=== PATIENT | female | born 2000 | race Caucasian/White ===

== ENCOUNTER → 2023-06-01 | Outpatient (CLI) | payer OTHER, SELFPAY | END | disposition home or self-care (01) | PROVIDERS: Referring Provider Nurse Practitioner Women's Health; Visit Provider Nurse Practitioner Women's Health | DX: O26.859 Spotting complicating pregnancy, unspecified trimester (principal); Z3A.00 Weeks of gestation of pregnancy not specified | CPT/HCPCS: 36415; 84702; 86850; 86900; 86901 ==

== ENCOUNTER → 2023-06-03 | Outpatient (CLI) | payer OTHER, SELFPAY ==
--- NOTE | 2023-06-03 18:30 | US_ITS ---
STUDY: FIRST TRIMESTER OBSTETRICAL ULTRASOUND REASON FOR EXAM: Female, 22 years old viability LMP: 04/09/2023 TECHNIQUE: Transvaginal TECHNICAL QUALITY: Adequate. PRIOR ULTRASOUND: None. FINDINGS: There is visualization of a single gestational sac in a normal intrauterine position. The mean sac diameter (MSD) measures 28 mm, indicating an estimated gestational age (EGA) of 7 weeks, 6 days. The gestational sac shape is within normal limits. There is a visualized yolk sac. The yolk sac measures 3 mm. The placenta is non-visualized. There is visualization of a live embryo. The crown-rump length (CRL) measures 13 mm, indicating an estimated gestational age (EGA) of 7 weeks, 4 days. There is demonstrated cardiac activity with a heart rate of 157 bpm. The estimated gestation age (EGA) by LMP is 7 weeks, 6 days. The estimated date of delivery (CLARITA) by LMP is 01/14/2024. The estimated gestation age (EGA) by US is 7 weeks, 5 days. The estimated date of delivery (CLARITA) by US is 01/15/2024. The uterus measures 10.6 x 5.1 x 8.3 cm. There is no demonstrated uterine fibroid. The cervix is closed. The right ovary measures 3.2 x 1.7 x 1.7 cm. There is no right ovarian cyst. There is no visualized right adnexal mass or complex lesion. The left ovary measures 5.0 x 2.7 x 3.2 cm. There is a 4 cm oval anechoic mass with increased transmission of the left ovary consistent with a thecal lutein cyst. There is no visualized left adnexal mass or complex lesion. There is no fluid in the cul de sac. US/Transvaginal w/Preg US IMPRESSION: Living intrauterine of 7 weeks 5 days as described above. Electronically Signed: Bob De León MD at 23:28 EDT ,
== END | disposition home or self-care (01) ==
PROVIDERS: Referring Provider Nurse Practitioner Women's Health; Visit Provider Nurse Practitioner Women's Health
DX: O26.859 Spotting complicating pregnancy, unspecified trimester (principal); Z3A.00 Weeks of gestation of pregnancy not specified
CPT/HCPCS: 36415; 76817; 84702

== ENCOUNTER → 2023-06-10 | Outpatient (CLI) | payer OTHER, SELFPAY ==
[2023-06-14 08:11] LABS: Chlamydia By Nucleic Acid AMP Negative (Negative); Gonococcus By Nucleic Acid AMP Negative (Negative)
== END | disposition home or self-care (01) ==
PROVIDERS: Visit Provider Registered Nurse
DX: Z34.90 Encounter for supervision of normal pregnancy, unspecified, unspecified trimester (principal); Z3A.00 Weeks of gestation of pregnancy not specified
CPT/HCPCS: 87086; 87491; 87591

== ENCOUNTER → 2023-06-20 | Outpatient (CLI) | payer OTHER, SELFPAY ==
[2023-06-20 09:53] LABS: Absolute Lymphocyte Count 1.11 X10^3/uL (0.83-4.51); Absolute Neutrophil Count 5.5 X10^3/uL (2.0-7.7); Basophil# 0.04 X10^3/uL; Basophil% 0.6 % (0-1); Eosinophil# 0.02 X10^3/uL; Eosinophils% 0.3 % (0-5); Hemoglobin 13.5 g/dL (12.0-15.0); Lymphocyte # 1.11 X10^3/ul (0.83-4.51); Lymphocyte % 15.9 % (19-41); Mean Corp Hgb Conc 33.8 g/dL (32-36); Mean Corpuscular Hgb 31.2 pg (27.0-32.0); Mean Corpuscular Volume 92.4 fL (81-99); Mean Platelet Vol. 10.8 fl (6.2-12.0); Monocyte# 0.31 X10^3/uL; Monocyte% 4.4 % (0-10); NRBC Flagged by Analyzer 0 % (0-5); Neutrophil # 5.48 X10^3/uL (2.7-7.7); Neutrophil % 78.4 % (47-70); Platelet Count 205 K/mm3 (150-450); RBC Distribution Width SD 43.9 fl (35.1-43.9); Red Blood Count 4.33 M/mm3 (4.2-5.4)
[2023-06-20 10:56] LABS: HIV - WCH Non-Reactive (Nonreactive); Hepatitis B Surface Antigen Non-Reactive (Nonreactive); Hepatitis C Antibody Non-Reactive (Nonreactive); NATERA MAILED SPECIMEN; Rubella IgG Reactive (Nonreactive); Syphilis Antibodies Non-reactive
== END | disposition home or self-care (01) ==
LOC: PAVLAB 09:32
PROVIDERS: PCP Physician Assistant Medical; Referring Provider Registered Nurse; Visit Provider Registered Nurse
DX: Z34.90 Encounter for supervision of normal pregnancy, unspecified, unspecified trimester (principal); Z3A.00 Weeks of gestation of pregnancy not specified
CPT/HCPCS: 36415; 85025; 86703; 86762; 86780; 86803; 86850; 86900; 86901; 87340

== ENCOUNTER → 2023-08-01 | Outpatient (CLI) | payer OTHER, SELFPAY | END | disposition home or self-care (01) | PROVIDERS: PCP Physician Assistant Medical; Referring Provider Registered Nurse; Visit Provider Registered Nurse | DX: Z34.90 Encounter for supervision of normal pregnancy, unspecified, unspecified trimester (principal); Z3A.00 Weeks of gestation of pregnancy not specified | CPT/HCPCS: 36415 ==

== ENCOUNTER → 2023-10-17 | Outpatient (CLI) | payer OTHER, SELFPAY ==
[2023-10-17 15:29] LABS: Absolute Lymphocyte Count 1.36 X10^3/uL (0.83-4.51); Absolute Neutrophil Count 7.4 X10^3/uL (2.0-7.7); Basophil# 0.02 X10^3/uL; Basophil% 0.2 % (0-1); Eosinophil# 0.04 X10^3/uL; Eosinophils% 0.4 % (0-5); Hematocrit 32.8 % (37-47); Hemoglobin 11.3 g/dL (12.0-15.0); Lymphocyte # 1.36 X10^3/ul (0.83-4.51); Lymphocyte % 14.5 % (19-41); Mean Corp Hgb Conc 34.5 g/dL (32-36); Mean Corpuscular Hgb 32.6 pg (27.0-32.0); Mean Corpuscular Volume 94.5 fL (81-99); Mean Platelet Vol. 10.9 fl (6.2-12.0); Monocyte# 0.49 X10^3/uL; Monocyte% 5.2 % (0-10); NRBC Flagged by Analyzer 0 % (0-5); Neutrophil # 7.42 X10^3/uL (2.7-7.7); Neutrophil % 79.1 % (47-70); Platelet Count 181 K/mm3 (150-450); RBC Distribution Width CV 14.6 % (11.6-14.6); RBC Distribution Width SD 50.1 fl (35.1-43.9); Red Blood Count 3.47 M/mm3 (4.2-5.4); White Blood Count 9.4 K/mm3 (4.4-11.0)
[2023-10-17 16:08] LABS: Glucose Challenge Gest 1H 50g 85 mg/dL (70-140)
[2023-10-17 17:03] LABS: HIV - WCH Non-Reactive (Nonreactive); Syphilis Antibodies Non-reactive
--- OUTSIDE RECORDS SUMMARY | 2023-10-17 19:22 | XMS RPT_ITS | CCD ---
Author Name Unknown Address [id number] [place] [address] Organization [facility] Care Team Providers Care Brake Adjuster Name Role Phone DASHAWN FRANCO Attending GEREMIAS Bassett Primary Care Unavailable Yennifer Tracy Unavailable Unavailable Unavailable Ms. YENNIFER PEMBERTON Referring Unavailab Blandon, MsGlen LIU Attending Vikash Blandon, MsGlen LIU Primary Care Unavailab YENNIFER Lang Primary Care Unavailable YENNIFER TRACY Referring Unavailable YENNIFER TRACY Attending Unavailable SHENG MAURICIO Primary Care Unavailable RODOLFO CALDWELL Referring Unavailable MAT CUADRA Attending Unavailable Medications Completed/Discontinued Medications Medication Drug Class(es) Dates Sig (Normalized) Sig (Original) busPIRone hydrochloride 5 mg oral tablet (2 sources) Start: 09-17-2022 take 1 tablet by mouth three times daily as needed for anxiety busPIRone HCl - 5 MG Oral Tablet TAKE 1 TABLET 3 times daily PRN anxiety Quantity: 90 Refills: 0 Ordered: 17-Sep-2022 Yennifer Chavira Start : 17-Sep-2022 Active PARoxetine hydrochloride 10 mg oral tablet (2 sources) Serotonin Reuptake Inhibitor Start: 09-17-2022 take 1 tablet by mouth once daily PARoxetine HCl - 10 MG Oral Tablet TAKE 1 TABLET DAILY. Quantity: 90 Refills: 0 Ordered: 17-Sep-2022 Yennifer Chavira Start : 17-Sep-2022 Active Problems Problem Classification Problem Date Documented Da te Episodic/Chronic Administrative/social admission (2 sources) Patient encounter status; Translations: [Other reasons for seeking consultation] Episodic Anxiety disorders (4 sources) Anxiety; Translations: [Anxiety state, unspecified] Onset: 09-25-2022 Chronic Nutritional deficiencies (2 sources) Deficiency of other specified B group vitamins; Translations: [Deficiency of other specified B group vitamins] Onset: 10-27-2022 Episodic Screening and history of mental health and substance abuse codes (2 sources) H/O: psychiatric disorder; Translations: [Personal history of neurosis] Episodic Results Test Name Value Interpretation Reference Range Facil ity Vital Signs Date Time Vital Sign Value Performing Clinician Faci lity 09-17-2022 10:32-0500 Body height 157.48 cm Yennifer Tracy Work Phone: [facility] Work Phone: 09-17-2022 10:32-0500 Body mass index (BMI) [Ratio] 21.58 kg/m2 Yennifer Tracy Work Phone: [facility] Work Phone: 09-17-2022 10:32-0500 Body surface area Derived from formula 1.53 m2 Yennifer Tracy Work Phone: [facility] Work Phone: 09-17-2022 10:32-0500 Body weight 53.52 kg Yennifer Tracy Work Phone: [facility] Work Phone: 09-17-2022 10:32-0500 Diastolic blood pressure 70 mm[Hg] Yennifer Tracy Work Phone: [facility] Work Phone: 09-17-2022 10:32-0500 Heart rate 73 /min Yennifer Tracy Work Phone: [facility] Work Phone: 09-17-2022 10:32-0500 Systolic blood pressure 103 mm[Hg] Yennifer Tracy Work Phone: [facility] Work Phone: Encounters Encounter Date Encounter Type Care Provider Facility Start: 09-01-2023 End: 09[facility]01[facility] Start: 10-27-2022 End: 10-27-2022 ambulatory YENNIFER [facility] Start: 10-27-2022 End: 10-27-2022 Encounter for general adult medical examination without abnormal findings YENNIFER [facility] Start: 10-05-2022 Chart Update Yennifer Tracy Work Phone: [facility] Work Phone: Start: 09-17-2022 Office outpatient ne w 45 minutes Yennifer Tracy Work Phone: [facility] Work Phone: Start: 09-17-2022 ambulatory Ms. YENNIFER Villarreal acility:[id number] Start: 09-20-2021 End: 09-20-2021 Emergency department patient visit [facility] Start: 08-15-2021 Encounter for gynecological examination (general) (routine) without abnormal findings Yennifer Tracy Work Phone: [facility] Work Phone: Procedures Date Procedure Procedure Detail Performing Clinician Insertion of intraut erine contraceptive device Yennifer Tracy Work Phone: Tonsillectomy and adenoidectomy Yennifer Tracy Work Phone: Plan of Treatment Date Care Activity Detail Author Start: 10-22-2022 FUV, Provider: Yennifer Tracy, Status: Pen, Time: 1:00 PM FUV, Provider: Yennifer Tracy, Status: Pen, Time: 1:00 PM [facility] Work Phone: Immunizations Immunization Date Immunization Notes Care Provider Amadou lucas 06-16-2017 influenza, injectabl e, quadrivalent, preservative free Yennifer Tracy Work Phone: [facility] Work Phone: 04-05-2017 hepatitis A vaccine, pediatric/adolescent dosage, 2 dose schedule Yennifer Tracy Work Phone: [facility] Work Phone: 04-05-2017 meningococcal polysaccharide (groups A, C, Y and W-135) diphtheria toxoid conjugate vaccine (MCV4P) Yennifer Tracy Work Phone: [facility] Work Phone: 09-09-2016 influenza, injectabl e, quadrivalent, preservative free Yennifer Alexandra Tracy Work Phone: [facility] Work Phone: 04-06-2013 human papilloma viru s vaccine, quadrivalent Yennifer Alexandra Tracy Work Phone: [facility] Work Phone: 12-01-2012 human papilloma viru s vaccine, quadrivalent Yennifer Tracy Work Phone: [facility] Work Phone: 10-03-2012 human papilloma viru s vaccine, quadrivalent Yennifer Tracy Work Phone: [facility] Work Phone: 04-24-2012 hepatitis A vaccine, pediatric/adolescent dosage, 2 dose schedule Yennifer Tracy Work Phone: [facility] Work Phone: 04-24-2012 meningococcal polysaccharide (groups A, C, Y and W-135) diphtheria toxoid conjugate vaccine (MCV4P) Yennifer Tracy Work Phone: [facility] Work Phone: 04-24-2012 tetanus toxoid, redu yuri diphtheria toxoid, and acellular pertussis vaccine, adsorbed Yennifer Tracy Work Phone: [facility] Work Phone: 10-14-2003 diphtheria, tetanus toxoids and acellular pertussis vaccine, unspecified formulation Yennifer Tracy Work Phone: [facility] Work Phone: 10-14-2003 measles, mumps and rubella virus vaccine Yennifer Tracy Work Phone: [facility] Work Phone: 10-14-2003 poliovirus vaccine, unspecified formulation Yennifer Alexandra Tracy Work Phone: [facility] Work Phone: 10-14-2003 varicella virus vaccine Yennifer Alexandra RoyTracy Work Phone: [facility] Work Phone: 10-17-2001 diphtheria, tetanus toxoids and acellular pertussis vaccine, unspecified formulation Yennifer Alexandra RoyTracy Work Phone: [facility] Work Phone: 10-17-2001 poliovirus vaccine, inactivated Yennifer Alexandra Tracy Work Phone: [facility] Work Phone: 10-17-2001 varicella virus vaccine Yennifer Tracy Work Phone: [facility] Work Phone: 09-20-2000 haemophilus influenz ae type b vaccine, PRP-T conjugate Yennifer Alexandra Tracy Work Phone: [facility] Work Phone: 09-20-2000 hepatitis B vaccine, pediatric or pediatric/adolescent dosage Yennifer Alexandra Tracy Work Phone: [facility] Work Phone: 09-20-2000 measles, mumps and rubella virus vaccine Yennifer Tracy Work Phone: [facility] Work Phone: 09-20-2000 pneumococcal conjuga te vaccine, 7 valent Yennifer Tracy Work Phone: [facility] Work Phone: 07-13-2000 pneumococcal conjuga te vaccine, 7 valent Yennifer Tracy Work Phone: [facility] Work Phone: 04-13-2000 diphtheria, tetanus toxoids and acellular pertussis vaccine, unspecified formulation Yennifer Tracy Work Phone: [facility] Work Phone: 01-04-2000 diphtheria, tetanus toxoids and acellular pertussis vaccine, unspecified formulation Yennifer Alexandra Tracy Work Phone: [facility] Work Phone: 01-04-2000 haemophilus influenz ae type b vaccine, PRP-T conjugate Yennifer Tracy Work Phone: [facility] Work Phone: 01-04-2000 hepatitis B vaccine, pediatric or pediatric/adolescent dosage Yennifer Tracy Work Phone: [facility] Work Phone: 01-04-2000 poliovirus vaccine, inactivated Yennifer D Jaime Work Phone: [facility] Work Phone: 1999 diphtheria, tetanus toxoids and acellular pertussis vaccine, unspecified formulation Yennifer Tracy Work Phone: [facility] Work Phone: 1999 haemophilus influenz ae type b vaccine, PRP-T conjugate Yennifer Tracy Work Phone: [facility] Work Phone: 1999 hepatitis B vaccine, pediatric or pediatric/adolescent dosage Yennifer Tracy Work Phone: [facility] Work Phone: 1999 poliovirus vaccine, inactivated Yennifer D Jaime Work Phone: [facility] Work Phone: Payers Date Payer Category Payer Unknown [id number] 1999 Unknown [id number] 1999 Unknown [id number] 1999 Unknown [id number] 1999 Unknown [id number] [employer] ( and others) [id number] Unknown Social History Date Type Detail Facility Non-smoker Non-smoker [facility] Work Phone: History of Present illness Narrative 09-17-2020 Note Date & Type Note Facility 09-17-2020 History of Presen t illness Narrative Presents today TO ESTABLISH A NEW. C/O INCREASE ANXIETY OVER THE PAST COUPLE OF YEARS THAT HAS GOTTEN WORSE OVER THE PAST YEAR modifying factors consists of HER HAS MENTAL ILLNESS THAT PREVENTS HIM FROM HELPING AROUND AND THEIR CHILD associated symptoms consist of DENIES DEPRESSION SYMPTOMS. NO SUICIDAL IDEATION. TROUBLE SLEEPING ON/OFF. NO PANIC ATTACKS. prior treatment consists of medication NONE [facility] Work Phone: Summary Purpose Family History No Family History Records FoundUnknown Family Member Name Dates Details No pertinent family history: Mother, Father(V49.89, Z78.9) Status:Active Family history of hypertensi on: Maternal Grandmother(V17.49, Z82.49) Status:Active Unknown Family Member Name Dates Details No pertinent family history: Mother, Father(V49.89, Z78.9) Status:Active Family history of hypertensi on: Maternal Grandmother(V17.49, Z82.49) Status:Active Advance Directives No Advanced Directives Records FoundNo Advanced Directives Records FoundNo Advanced Directives Records FoundNo Advanced Directives Records FoundNo Advanced Directives Records FoundNo Advanced Directives Records FoundNo Advanced Directives Records Found Chief Complaint EST NEW. C/O ANXIETY Additional Source Comments INFORMATION SOURCE (unrecogn ized section and content) DATE CREATED AUTHOR AUTHOR'S ORGANIZ ATION 09/26/2021 [facility] DATE CREATED AUTHOR AUTHOR'S ORGANIZ ATION 01/13/2022 [facility] DATE CREATED AUTHOR AUTHOR'S ORGANIZ ATION 09/18/2022 [facility] DATE CREATED AUTHOR AUTHOR'S ORGANIZ ATION 10/02/2022 [facility] DATE CREATED AUTHOR AUTHOR'S ORGANIZ ATION 10/29/2022 [facility] DATE CREATED AUTHOR AUTHOR'S ORGANIZ ATION 09/03/2023 [facility] FOR RECORDS PERTAINING TO PATIENTS WHO ARE OR HAVE BEEN ENROLLED IN A CHEMICAL DEPENDENCY/SUBSTANCEABUSE PROGRAM, SOME INFORMATION MAY BE OMITTED. This clinical summary was aggregated from multiple sources. Caution should be exercised in using it in the provision of clinical care. This summary normalizes information from multiple sources, and as a consequence, information in this document may materially change the coding, format and clinical context of patient data. In addition, data may be omitted in some cases. CLINICAL DECISIONS SHOULD BE BASED ON THE PRIMARY CLINICAL RECORDS. [facility] [employer] provides no warranty or guarantee of the accuracy or completeness of information in this document.
== END | disposition home or self-care (01) ==
LOC: PAVLAB 15:05
PROVIDERS: PCP Physician Assistant Medical; Referring Provider Obstetrics & Gynecology; Visit Provider Obstetrics & Gynecology
DX: Z34.90 Encounter for supervision of normal pregnancy, unspecified, unspecified trimester (principal); Z3A.00 Weeks of gestation of pregnancy not specified
CPT/HCPCS: 36415; 82950; 85025; 86703; 86780

== ENCOUNTER → 2023-11-02 | Outpatient (CLI) | payer OTHER, SELFPAY ==
[2023-11-02 15:19] LABS: Absolute Lymphocyte Count 1.39 X10^3/uL (0.83-4.51); Basophil# 0.02 X10^3/uL; Basophil% 0.2 % (0-1); Eosinophil# 0.06 X10^3/uL; Eosinophils% 0.6 % (0-5); Hematocrit 33.2 % (37-47); Hemoglobin 11.5 g/dL (12.0-15.0); Lymphocyte # 1.39 X10^3/ul (0.83-4.51); Lymphocyte % 13.7 % (19-41); Mean Corp Hgb Conc 34.6 g/dL (32-36); Mean Corpuscular Hgb 33.4 pg (27.0-32.0); Mean Corpuscular Volume 96.5 fL (81-99); Mean Platelet Vol. 11.7 fl (6.2-12.0); Monocyte# 0.62 X10^3/uL; Monocyte% 6.1 % (0-10); NRBC Flagged by Analyzer 0 % (0-5); Neutrophil # 8.03 X10^3/uL (2.7-7.7); Neutrophil % 78.8 % (47-70); Platelet Count 183 K/mm3 (150-450); RBC Distribution Width CV 14.5 % (11.6-14.6); RBC Distribution Width SD 50.9 fl (35.1-43.9); Red Blood Count 3.44 M/mm3 (4.2-5.4); White Blood Count 10.2 K/mm3 (4.4-11.0)
[2023-11-02 15:56] LABS: ALB/GLOB Ratio 0.9 RATIO (0.9-2.4); AST(SGOT) 14 U/L (15-37); Alanine Aminotransfer ALT/SGPT 15 U/L (13-56); Alkaline Phosphatase 60 U/L (45-117); Anion Gap 5 (5-15); BUN 5 mg/dL (7-18); BUN/Creat Ratio 10.6 RATIO (10-20); Calcium,Total 8.8 mg/dL (8.5-10.1); Chloride 110 mmol/L (98-107); Creatinine, Serum 0.47 mg/dL (0.55-1.02); EST Glomerular Filtration Rate 172 mL/min (>60); Est Glom Filt Rate - Afr Amer 208 mL/min (>60); Globulin 3.2 g/dL (2.2-4.2); Glucose 101 mg/dL (74-106); Potassium 3.6 mmol/L (3.5-5.1); Protein, Total 6.2 g/dL (6.4-8.2); Sodium Level 139 mmol/L (136-145)
== END | disposition home or self-care (01) ==
PROVIDERS: PCP Physician Assistant Medical; Referring Provider Obstetrics & Gynecology; Visit Provider Obstetrics & Gynecology
DX: R42 Dizziness and giddiness (principal)
CPT/HCPCS: 36415; 80053; 85025

== ENCOUNTER 2023-11-08 11:50 | Outpatient (CLI) | payer OTHER, SELFPAY ==
[2023-11-08] VITALS (13 sets, daily range): BP systolic 90–105; BP diastolic 52–73; PULSE 84–229; RESP 16; TEMP 36.6; O2SAT 81–100; BMI 23.8
--- NOTE | 2023-11-08 13:40 | EKGRS_ITS ---
Test Reason : DIZZINESS Blood Pressure : / mmHG Vent. Rate : 087 BPM Atrial Rate : 087 BPM P-R Int : 114 ms QRS Dur : 064 ms QT Int : 340 ms P-R-T Axes : -09 033 016 degrees QTc Int : 409 ms Normal sinus rhythm Normal ECG No previous ECGs available Confirmed by NAYELY TITUS, ROSA ([id number]), newspaper editor NICHOLAS GAITAN ([id number]) on 11/09/2023 1:25:29 PM Referred By: Riddhi Villalobos Confirmed By:ROSA ADLER MD
[2023-11-08 14:07] LABS: Mucous, Urine 0 SEEN /hpf (<or=2+); Red Blood Cells-Urine 0 SEEN /hpf (0-5)
[2023-11-08 14:08] LABS: Hematocrit 33.7 % (37-47); Hemoglobin 11.4 g/dL (12.0-15.0); Mean Corp Hgb Conc 33.8 g/dL (32-36); Mean Corpuscular Hgb 32.4 pg (27.0-32.0); Mean Corpuscular Volume 95.7 fL (81-99); Mean Platelet Vol. 11.4 fl (6.2-12.0); Platelet Count 173 K/mm3 (150-450); RBC Distribution Width CV 14.5 % (11.6-14.6); RBC Distribution Width SD 50.5 fl (35.1-43.9); Red Blood Count 3.52 M/mm3 (4.2-5.4); White Blood Count 9.7 K/mm3 (4.4-11.0)
[2023-11-08 14:09] LABS: Color, Urine Yellow (Yellow); Glucose, Dipstick Normal (Normal); Ketone-Dipstick Negative (Negative); Leukocyte Esterase-Dipstick 100 /ul (Negative); Nitrite-Dipstick Negative (Negative); Occult Blood-Urine Negative /ul (Negative); Protein-Dipstick Negative (Negative); Specific Gravity, Urine 1.015 (1.002-1.030); Urine Bilirubin Dipstick Negative (Negative); Urine Clarity Sl. Cloudy (Clear); Urine Urobilinogen 8 mg/dl (Normal)
[2023-11-08 14:30] LABS: Bacteria 1+ /hpf (None Seen); Squamous Epithelial Cells - UA 0-5 SEEN /hpf (5-10); White Blood Cells 0-5 SEEN /hpf (0-5)
[2023-11-08 14:34] LABS: AST(SGOT) 8 U/L (15-37); Alanine Aminotransfer ALT/SGPT 12 U/L (13-56); Albumin, Serum 2.9 g/dL (3.2-5.0); Alkaline Phosphatase 61 U/L (45-117); Anion Gap 9 (5-15); BUN 5 mg/dL (7-18); BUN/Creat Ratio 9.8 RATIO (10-20); Calcium,Total 8.9 mg/dL (8.5-10.1); Chloride 109 mmol/L (98-107); Creatinine, Serum 0.51 mg/dL (0.55-1.02); EST Glomerular Filtration Rate 157 mL/min (>60); Est Glom Filt Rate - Afr Amer 190 mL/min (>60); Estimated Creatinine Clearance 134.53 ml/min; Glucose 76 mg/dL (74-106); Potassium 3.8 mmol/L (3.5-5.1); Protein, Total 5.9 g/dL (6.4-8.2); Sodium Level 140 mmol/L (136-145)
--- NOTE | 2023-11-10 13:10 | OB.TRI.PN ---
Progress Notes Date of Service: 11/08/23 Progress Note: Patient presents for triage evaluation secondary to hypotension FHT: 140 Moderate variability reactive no decelerations category I tracing [place]: no regular Contractions Assessment and plan: hypotension Reactive NST, labs done fluids given reassuring maternal and status patient discharged to home to follow-up as scheduled. See problem list details for additional plan information. Laboratory Studies: Laboratory Tests 11/08/23 Range/Units 14:00 WBC 9.7 (4.4-11.0) K/mm3 RBC 3.52 L (4.2-5.4) M/mm3 Hgb 11.4 L (12.0-15.0) g/dL Hct 33.7 L (37-47) % MCV 95.7 (81-99) fL MCH 32.4 H (27.0-32.0) pg MCHC 33.8 (32-36) g/dL RDW Std Deviation 50.5 H (35.1-43.9) fl RDW Coeff of Roque 14.5 (11.6-14.6) % Plt Count 173 (150-450) K/mm3 MPV 11.4 (6.2-12.0) fl Sodium 140 (136-145) mmol/L Potassium 3.8 (3.5-5.1) mmol/L Chloride 109 H (98-107) mmol/L Carbon Dioxide 22.0 (21.0-32.0) mmol/L Anion Gap 9 (5-15) BUN 5 L (7-18) mg/dL Creatinine 0.51 L (0.55-1.02) mg/dL Estim Creat Clear Calc 134.53 ml/min Est GFR (MDRD) Af Amer 190 (>60) mL/min Est GFR (MDRD) Non-Af 157 (>60) mL/min BUN/Creatinine Ratio 9.8 L (10-20) RATIO Glucose 76 (74-106) mg/dL Calcium 8.9 (8.5-10.1) mg/dL Total Bilirubin 0.80 (0.20-1.00) mg/dL AST 8 L (15-37) U/L ALT 12 L (13-56) U/L Alkaline Phosphatase 61 (45-117) U/L Total Protein 5.9 L (6.4-8.2) g/dL Albumin 2.9 L (3.2-5.0) g/dL Globulin 3.0 (2.2-4.2) g/dL Albumin/Globulin Ratio 1.0 (0.9-2.4) RATIO Urine Color Yellow (Yellow) Urine Clarity Sl. Cloudy (Clear) Urine pH 8.0 (5.0 - 8.0) Ur Specific [place] 1.015 (1.002-1.030) Urine Protein Negative (Negative) mg/dl Urine Glucose (UA) Normal (Normal) mg/dl Urine Ketones Negative (Negative) mg/dl Urine Occult Blood Negative (Negative) /ul Urine Nitrite Negative (Negative) Urine Bilirubin Negative (Negative) mg/dL Urine Urobilinogen 8 H (Normal) mg/dl Ur Leukocyte Esterase 100 H (Negative) /ul Urine RBC 0 SEEN (0-5) /hpf Urine WBC 0-5 SEEN (0-5) /hpf Ur Squamous Epith Cells 0-5 SEEN (5-10) /hpf Urine Bacteria 1+ (None Seen) /hpf Urine Mucus 0 SEEN (<or=2+) /hpf Charges/Coding Procedures Urinary/Genital [id number]: [id number] non-stress test Interp
== END 2023-11-08 14:59 | disposition home or self-care (01) ==
LOC: WPOUT 11:57 → WP 11:58
PROVIDERS: PCP Physician Assistant Medical; Referring Provider Obstetrics & Gynecology; Visit Provider Obstetrics & Gynecology
DX: O99.419 Diseases of the circulatory system complicating pregnancy, unspecified trimester (principal); I95.9 Hypotension, unspecified; Z3A.00 Weeks of gestation of pregnancy not specified
CPT/HCPCS: 36415; 59025; 59050; 80053; 81001; 85027; 87086; 93005; 99221; G0378

== ENCOUNTER → 2023-11-30 | Outpatient (CLI) | payer OTHER, SELFPAY ==
--- NOTE | 2023-11-30 13:54 | ECHOD_ITS ---
Reason For Study: HYPOTENSION Procedure This was a 2D Doppler, Color Flow transthoracic echocardiogram. Exam performed in department. Left Ventricle Normal LV size. Left ventricular systolic function is normal. The estimated ejection fraction is 60 %. Normal diastology for age. No regional wall motion abnormalities noted. Right Ventricle Normal RV size. Normal systolic function. Atria Normal left atrium. Normal right atrium. Mitral Valve Normal mitral valve. Tricuspid Valve Normal tricuspid valve. Aortic Valve Trisinus/trileaflet aortic valve. Pulmonic Valve Normal pulmonic valve. Great Vessels Normal aortic root. The pulmonary artery is normal size. Normal inferior vena cava. Pericardium/Pleural No pericardial effusion. MMode/2D Measurements & Calculations LVIDd: 4.4 cm IVSd: 0.57 cm Ao root diam: 2.6 cm LVIDs: 3.2 cm LVPWd: 0.71 cm LA dimension: 2.6 cm RVDd: 2.9 cm FS: 27.1 % LAV(MOD-bp): 28.8 ml LVAd ap4: 27.5 cm2 LVAd ap2: 24.3 cm2 LAV(MOD-bp) Indexed: 17.9 ml/m2 LVLd ap4: 7.5 cm LVLd ap2: 7.1 cm LAV(MOD-sp2): 30.0 ml EDV(MOD-sp4): 84.4 ml EDV(MOD-sp2): 69.1 ml LAV(MOD-sp4): 25.2 ml EDV(sp4-el): 85.5 ml EDV(sp2-el): 70.8 ml LVAs ap4: 15.7 cm2 LVAs ap2: 13.6 cm2 LVLs ap4: 6.2 cm LVLs ap2: 6.2 cm ESV(MOD-sp4): 35.9 ml ESV(MOD-sp2): 25.7 ml ESV(sp4-el): 33.9 ml ESV(sp2-el): 25.4 ml EF(MOD-sp4): 57.5 % EF(MOD-sp2): 62.8 % EF(sp4-el): 60.4 % SV(MOD-sp4): 48.5 ml SV(MOD-sp2): 43.3 ml SV(sp4-el): 51.6 ml TAPSE: 2.3 cm LA A4 area: 11.8 cm2 RA A4 area: 9.1 cm2 Time Measurements MV dec time: 0.21 sec Doppler Measurements & Calculations MV E max medhat: 73.3 cm/sec Lat Peak E' Med[place]: 15.1 cm/sec Med Peak E' [place]: 13.9 cm/sec MV A max medhat: 50.4 cm/sec E/E' lat: 4.8 E/E' med: 5.3 MV E/A: 1.5 MV V2 max: 94.1 cm/sec MV P1/2t max medhat: 96.4 cm/sec Ao V2 max: 145.4 cm/sec MV max P.5 mmHg MV P1/2t: 67.2 msec Ao max P.5 mmHg MV V2 mean: 64.1 cm/sec MV dec slope: 419.9 cm/sec2 Ao V2 mean: 101.0 cm/sec MV mean P.8 mmHg Ao mean P.6 mmHg MV V2 VTI: 19.3 cm MVA(P1/2t): 3.3 cm2 Ao V2 VTI: 27.8 cm AV (velocity ratio): 0.70 LV V1 max: 101.0 cm/sec PA V2 max: 92.5 cm/sec LV V1 max P.1 mmHg PA V2 mean: 64.9 cm/sec LV V1 mean P.3 mmHg LV V1 mean: 71.6 cm/sec LV V1 VTI: 19.5 cm ECHO/Echo Complete Interpretation Summary Normal LV size. Left ventricular systolic function is normal. The estimated ejection fraction is 60 %. Structurally normal valves. Ordering Physician: Bryan Toscano Referring Physician: Veena Vizcaino Performed By: Oralia De Paz, BELLA, RVT
== END | disposition home or self-care (01) ==
LOC: CVS 13:48
PROVIDERS: PCP Physician Assistant Medical; Referring Provider Internal Medicine Cardiovascular Disease; Visit Provider Internal Medicine Cardiovascular Disease
DX: I95.9 Hypotension, unspecified (principal); R42 Dizziness and giddiness
CPT/HCPCS: 93306

== ENCOUNTER → 2023-12-23 | Outpatient (CLI) | payer OTHER, SELFPAY | END | disposition home or self-care (01) | PROVIDERS: PCP Physician Assistant Medical; Referring Provider Advanced Practice Midwife; Visit Provider Advanced Practice Midwife | DX: Z34.90 Encounter for supervision of normal pregnancy, unspecified, unspecified trimester (principal); Z3A.00 Weeks of gestation of pregnancy not specified | CPT/HCPCS: 87081 ==

== ENCOUNTER 2024-01-16 07:11 | Inpatient (IN) | payer OTHER, SELFPAY ==
[2024-01-16] VITALS (44 sets, daily range): BP systolic 110–140; BP diastolic 68–91; PULSE 66–197; RESP 16–18; TEMP 36.4–37.2; O2SAT 84–100; BMI 26.1
[2024-01-16] MEDS: Lactated Ringers 1,000 ML 50 ML IV (07:30)
[2024-01-16 08:09] LABS: Absolute Lymphocyte Count 1.23 X10^3/uL (0.83-4.51); Absolute Neutrophil Count 6.2 X10^3/uL (2.0-7.7); Basophil# 0.03 X10^3/uL; Basophil% 0.4 % (0-1); Eosinophil# 0.02 X10^3/uL; Eosinophils% 0.2 % (0-5); Hematocrit 32.1 % (37-47); Hemoglobin 10.3 g/dL (12.0-15.0); Lymphocyte # 1.23 X10^3/ul (0.83-4.51); Lymphocyte % 15.4 % (19-41); Mean Corp Hgb Conc 32.1 g/dL (32-36); Mean Corpuscular Hgb 29.1 pg (27.0-32.0); Mean Corpuscular Volume 90.7 fL (81-99); Mean Platelet Vol. 13.3 fl (6.2-12.0); Monocyte# 0.48 X10^3/uL; NRBC Flagged by Analyzer 0 % (0-5); Neutrophil # 6.21 X10^3/uL (2.7-7.7); Neutrophil % 77.5 % (47-70); Platelet Count 176 K/mm3 (150-450); RBC Distribution Width SD 46.5 fl (35.1-43.9); Red Blood Count 3.54 M/mm3 (4.2-5.4)
[2024-01-16 08:46] LABS: Syphilis Antibodies Non-reactive
[2024-01-16] MEDS: Oxytocin 15 Units/NS 250ml 15 UNITS/250 ML IV.SOLN 2 UNITS IV (08:53)
[2024-01-16] MEDS: LACTATED RINGERS 500 ML 999 ML IV ×2 (09:36→13:05)
[2024-01-16] MEDS: Ondansetron 4 MG/2 ML Vial IV (13:13)
[2024-01-16] MEDS: 0.9% Saline Lock 10 ML Syringe IV (13:16)
[2024-01-16] MEDS: Lactated Ringers 500 ML 999 ML IV (13:35)
[2024-01-16] MEDS: fentaNYL-bupivacaine (epidural) 100 ML BAG EPIDURAL (13:37)
[2024-01-16] MEDS: Oxytocin 15 Units/NS 250ml 15 UNITS/250 ML IV.SOLN 83 UNITS IV (15:52)
--- NOTE | 2024-01-16 16:45 | HP.PCM.OB_ITS ---
HPI - General General Date of Admission: 01/16/24 HPI Narrative MYLENE YATES, is a 23 F who presents for IOL postdates no vb lof admits good FM no regular ctx Maternal Data Information CLARITA Calculator Estimated Delivery Date Method Current WG Current Estimate 01/14/24 LMP (Certain) 40w 2d Other Estimates 01/15/24 Ultrasound #1 40w 1d PFSH PFSH Medical History (Updated 01/16/24 @ 16:[address] Riddhi Villalobos MD) Dizziness Hypotension Vaginal delivery Home Medications ?Medication ?Instructions ?Recorded ?Last Taken ?Type multivitamin no.47-iron fum 27 1 cap PO DAILY 06/10/23 11/07/23 08:00 History mg-folate no.1 1 mg-dha 300 mg 1 cap capsule (PNV-DHA) Allergy/AdvReac Type Severity Reaction Status Date / Time No Known Allergies Allergy Verified 01/16/24 07:37 Family History Grandmother Hypertension Breast cancer Surgical History Hx of tonsillectomy Social History adopted: No household members: spouse housing: house current occupational status: employed current occupation: [employer] current occupational exposures/hazards: No pets and animals: Yes pets and animals: dog(s) history of recent travel: No sexually active: Yes Smoking Status: Never smoker alcohol intake: current details: socially substance use type: does not use caffeine: Yes seatbelt use: always do you feel safe at home: Yes 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 Date Name GA/Weeks Outcome Route Bth Weight Gen Labor Lgth Anesthesia Del Locatn Provider FOB 07/18/20 Hugo 39 live - full term 7lb 13 oz Male e pidural soto Sp[facility]ler Visit Details Expected Delivery Route/Plan Labor Preferences- CB/BF classes: no labor support person: Laci labor intervention preferences: [] pain management options preferred: epidural if requested cut cord/dad catch: yes : yes PP control planned: discussed discussed possible routes of delivery and associated risks: [] special requests: [] Plans Covid status: declined Flu vaccine: declined Tdap vaccine: Rhogam: na LARC form signed: yes Problem list reviewed and updated with the most current plan of care details and appropriate orders placed. Relevant counseling for the gestational age provided. Continue routine care and follow up unless otherwise noted in visit notes/problem list details OB Flowsheet Initial Weight: 112 lb Date -?-?-?-?-?-?-?-?-?-?-?-?- EGA Weight BP Urine Prot -?-?-?-?-?-?-?-?-?-?-?-?- Glucose FHR FuHt Pres Dilation -?-?-?-?-?-?-?-?-?-?-?-?- Effaced St Visit Note 06/10/23 -?-?-?-?-?-?-?-?-?-?-?-?- 8w 6d 112 lb 8 oz (+8 oz) 106/72 -?-?-?-?-?-?-?-?-?-?-?-?- 168 -?-?-?-?-?-?-?-?-?-?-?-?- LC- no vb/crampi ng. 1st trimester US on 06/03 CRL con with LMP. CLARITA 01/14/2024. accepts nipt. 07/06/23 -?-?-?-?-?-?-?-?-?-?-?-?- 12w 4d 116 lb 4 oz (+4 lb 4 oz) 103/72 Negative -?-?-?-?-?-?-?-?-?-?-?-?- Negative 160 -?-?-?-?-?-?-?-?-?-?-?-?- SM- no vb crampi ng 08/01/23 -?-?-?-?-?-?-?-?-?-?-?-?- 16w 2d 117 lb 6 oz (+5 lb 6 oz) 113/68 Negative -?-?-?-?-?-?-?-?-?-?-?-?- Negative 155 -?-?-?-?-?-?-?-?-?-?-?-?- LC- no vb/crampi ng. [facility] [place] anatomy ordered. afp discussed and desired. order placed. 08/31/23 -?-?-?-?-?-?-?-?-?-?-?-?- 20w 4d 121 lb 4 oz (+9 lb 4 oz) 116/80 Negative -?-?-?-?-?-?-?-?-?-?-?-?- Negative 155 -?-?-?-?-?-?-?-?-?-?-?-?- LC-no vb/crampin lauryn PIEDRA-no vb/cramping. anatomy t omorrow. 09/27/23 -?-?-?-?-?--?-?-?-?-?-?-?- 24w 3d 123 lb (+11 lb) 107/71 Negative -?-?-?-?-?-?-?-?-?-?-?-?- Negative 155 24 -?-?-?-?-?-?-?-?-?-?-?-?- kw-no vb/crampin lauryn hernandes. normal anatomy. 28 week labs ordered. 10/17/23 -?-?-?-?-?-?-?-?-?-?-?-?- 27w 2d 125 lb 8 oz (+13 lb 8 oz) 112/76 Negative -?-?-?-?-?-?-?-?-?-?-?-?- Negative 148 27 -?-?-?-?-?-?-?-?-?-?-?-?- MH-No VB, LOF. G ood FM. 28 wk labs pending. Lar. 11/02/23 -?-?-?-?-?-?-?-?-?-?-?-?- 29w 4d 131 lb (+19 lb) 109/73 Negative -?-?-?-?-?-?-?-?-?-?-?-?- Negative 150 28 -?-?-?-?-?-?-?-?-?-?-?--?- JV- pt here due to seeing stars in vision and low blood pressure, dizziness, and feeling. hot. She has decreased movement also.She denies loss of fluid or vaginal bleeding . NST and blood work ordered. JV- pt here due to seeing st ars in vision and low blood pressure, dizziness, and feeling. hot. She has decreased movement also.She denies loss of fluid or vaginal bleeding . NST and blood work ordered. She had another episode here and he bp went down to 88/56. will consult cardiology and recommend hydration and compression stockings in the meantime. 11/11/23 -?-?-?-?-?-?-?-?-?-?-?-?- 30w 6d 133 lb 2 oz (+21 lb 2 oz) 106/72 Negative -?-?-?-?-?-?-?-?-?-?-?-?- Negative 140 30 -?-?-?-?-?-?-?-?-?-?-?-?- SM- no vb lof go od fm no regular ctx still having episodes of dizziness 12/02/23 -?-?-?-?-?-?-?-?-?-?-?-?- 33w 6d 136 lb (+24 lb) 113/72 -?-?-?-?-?-?-?-?-?-?-?-?- 140 33 -?-?-?-?-?-?-?-?-?-?-?-?- SM- no vb lof go od fm no regular ctx 12/13/23 -?-?-?-?-?-?-?-?-?-?-?-?- 35w 3d 143 lb 4 oz (+31 lb 4 oz) 110/74 Negative -?-?-?-?-?-?-?-?-?-?-?-?- Negative 143 34 -?-?-?-?-?-?-?-?-?-?-?-?- JV- no lof, vagi nal bleeding, or dec fm. no complaints today. plan gbs next visit. 12/23/23 -?-?-?-?-?-?-?-?-?-?-?-?- 36w 6d 143 lb (+31 lb) 124/81 Negative -?-?-?-?-?-?-?-?-?-?-?-?- Negative 150 36 2 -?-?-?-?-?-?-?-?-?-?-?-?- 50 -3 kw- no vb/ lof/ctx. good fm. GBS today. no concerns today 12/28/23 -?-?-?-?-?-?-?-?-?-?-?-?- 37w 4d 144 lb 6 oz (+32 lb 6 oz) 120/83 Negative -?-?-?-?-?-?-?-?-?-?-?-?- Negative 140 37 2 -?-?-?-?-?-?-?-?-?-?-?-?- 50 -3 JV- no lof , vag bleeding, or dec fm. 01/03/24 -?-?-?-?-?-?-?-?-?-?-?-?- 38w 3d 144 lb (+32 lb) 127/79 Negative -?-?-?-?-?-?-?-?-?-?-?-?- Negative 145 37 3 -?-?-?-?-?-?-?-?-?-?-?-?- 60 -2 KW- no vb/ lof/ctx. good fm. labor precautions 01/11/24 -?-?-?-?-?-?-?-?-?-?-?-?- 39w 4d 144 lb 6 oz (+32 lb 6 oz) 122/81 Negative -?-?-?-?-?-?-?-?-?-?-?-?- Negative 140 38 2 -?-?-?-?-?-?-?-?-?-?-?-?- 50 -2 JV- no lof , vaginal bleeding, or dec fm. very difficult to find cervix today. only able to get one finger in and tried to strip membranes without much success. had 39 week IOL in [place] with last child. wants ioL mid to end next week. rto early next week for another attempt at membranes sweep. VIVIEN today is 9.5 Vital Signs Vital Signs Vital Signs: 01/16/24 07:20 01/16/24 07:20 01/16/24 07:20 Temperature 97.5 F L Temperature Source Temporal Pulse Rate Respiratory Rate 16 Blood Pressure BP Systolic BP Diastolic Pulse Ox 01/16/24 07:21 01/16/24 07:21 01/16/24 07:22 Temperature Temperature Source Pulse Rate 88 98 Respiratory Rate Blood Pressure 125/83 H BP Systolic 125 BP Diastolic 83 Pulse Ox 01/16/24 07:22 01/16/24 09:03 01/16/24 09:03 Temperature Temperature Source Pulse Rate 75 Respiratory Rate Blood Pressure 121/83 H BP Systolic 121 BP Diastolic 83 Pulse Ox 99 01/16/24 09:03 01/16/24 10:04 01/16/24 10:04 Temperature Temperature Source Pulse Rate 81 Respiratory Rate 16 Blood Pressure 120/84 H BP Systolic 120 BP Diastolic 84 Pulse Ox 01/16/24 10:04 01/16/24 10:04 01/16/24 11:04 Temperature 98.2 F Temperature Source Temporal Pulse Rate Respiratory Rate Blood Pressure 122/84 H BP Systolic 122 BP Diastolic 84 Pulse Ox 01/16/24 11:04 01/16/24 11:04 01/16/24 11:04 Temperature Temperature Source Pulse Rate 77 Respiratory Rate 16 Blood Pressure BP Systolic BP Diastolic Pulse Ox 100 01/16/24 12:08 01/16/24 12:08 01/16/24 12:08 Temperature Temperature Source Temporal Pulse Rate 76 Respiratory Rate Blood Pressure 110/70 BP Systolic 110 BP Diastolic 70 Pulse Ox 01/16/24 12:08 01/16/24 12:08 01/16/24 12:09 Temperature 99.0 F Temperature Source Pulse Rate 75 Respiratory Rate 16 Blood Pressure BP Systolic BP Diastolic Pulse Ox 01/16/24 12:09 01/16/24 13:06 01/16/24 13:06 Temperature Temperature Source Pulse Rate 89 Respiratory Rate Blood Pressure 131/79 H BP Systolic 131 BP Diastolic 79 Pulse Ox 100 01/16/24 13:07 01/16/24 13:07 01/16/24 13:07 Temperature 98.1 F Temperature Source Temporal Pulse Rate Respiratory Rate 16 Blood Pressure BP Systolic BP Diastolic Pulse Ox 01/16/24 13:30 01/16/24 13:31 01/16/24 13:31 Temperature Temperature Source Pulse Rate 197 H Respiratory Rate Blood Pressure BP Systolic BP Diastolic Pulse Ox 91 99 01/16/24 13:35 01/16/24 13:35 01/16/24 13:35 Temperature Temperature Source Pulse Rate 77 Respiratory Rate 18 Blood Pressure 118/77 BP Systolic 118 BP Diastolic 77 Pulse Ox 01/16/24 13:36 01/16/24 13:36 01/16/24 13:40 Temperature Temperature Source Pulse Rate 73 Respiratory Rate Blood Pressure 113/71 BP Systolic 113 BP Diastolic 71 Pulse Ox 100 01/16/24 13:40 01/16/24 13:40 01/16/24 13:41 Temperature Temperature Source Pulse Rate 71 72 Respiratory Rate 18 Blood Pressure BP Systolic BP Diastolic Pulse Ox 01/16/24 13:41 01/16/24 13:45 01/16/24 13:45 Temperature Temperature Source Pulse Rate 75 Respiratory Rate Blood Pressure 115/72 BP Systolic 115 BP Diastolic 72 Pulse Ox 99 01/16/24 13:45 01/16/24 13:46 01/16/24 13:46 Temperature Temperature Source Pulse Rate 88 Respiratory Rate 16 Blood Pressure BP Systolic BP Diastolic Pulse Ox 99 01/16/24 13:50 01/16/24 13:50 01/16/24 13:50 Temperature Temperature Source Pulse Rate 73 Respiratory Rate 16 Blood Pressure 113/74 BP Systolic 113 BP Diastolic 74 Pulse Ox 01/16/24 13:51 01/16/24 13:51 01/16/24 13:55 Temperature Temperature Source Pulse Rate 76 Respiratory Rate Blood Pressure 116/78 BP Systolic 116 BP Diastolic 78 Pulse Ox 99 01/16/24 13:55 01/16/24 13:55 01/16/24 13:56 Temperature Temperature Source Pulse Rate 71 74 Respiratory Rate 16 Blood Pressure BP Systolic BP Diastolic Pulse Ox 01/16/24 13:56 01/16/24 13:57 01/16/24 13:57 Temperature Temperature Source Pulse Rate 88 Respiratory Rate Blood Pressure BP Systolic BP Diastolic Pulse Ox 100 84 01/16/24 14:00 01/16/24 14:01 01/16/24 14:01 Temperature Temperature Source Pulse Rate 75 Respiratory Rate 16 Blood Pressure BP Systolic BP Diastolic Pulse Ox 100 01/16/24 14:01 01/16/24 14:01 01/16/24 14:02 Temperature Temperature Source Pulse Rate 80 Respiratory Rate 16 Blood Pressure 119/70 BP Systolic 119 BP Diastolic 70 Pulse Ox 01/16/24 14:02 01/16/24 14:23 01/16/24 14:23 Temperature 97.8 F Temperature Source Pulse Rate 92 Respiratory Rate Blood Pressure 114/77 BP Systolic 114 BP Diastolic 77 Pulse Ox 01/16/24 15:17 01/16/24 15:17 01/16/24 15:17 Temperature Temperature Source Temporal Pulse Rate 87 Respiratory Rate Blood Pressure 118/74 BP Systolic 118 BP Diastolic 74 Pulse Ox 01/16/24 15:17 01/16/24 15:17 01/16/24 15:32 Temperature 98.1 F Temperature Source Pulse Rate Respiratory Rate 18 Blood Pressure 139/79 H BP Systolic 139 BP Diastolic 79 Pulse Ox 01/16/24 15:32 01/16/24 15:32 01/16/24 15:45 Temperature Temperature Source Pulse Rate 93 Respiratory Rate 16 16 Blood Pressure BP Systolic BP Diastolic Pulse Ox 01/16/24 15:46 01/16/24 15:46 01/16/24 16:00 Temperature Temperature Source Pulse Rate 74 Respiratory Rate 16 Blood Pressure 137/91 H BP Systolic 137 BP Diastolic 91 Pulse Ox 01/16/24 16:01 01/16/24 16:01 01/16/24 16:16 Temperature Temperature Source Pulse Rate 76 Respiratory Rate Blood Pressure 136/84 H 140/86 H BP Systolic 136 140 BP Diastolic 84 86 Pulse Ox 01/16/24 16:16 01/16/24 16:32 01/16/24 16:32 Temperature Temperature Source Pulse Rate 83 72 Respiratory Rate Blood Pressure 131/82 H BP Systolic 131 BP Diastolic 82 Pulse Ox Weight Weight: 142 lb 10.225 oz Body Mass Index (BMI) 26.1 Labs Labs Labs: Blood Type A POSITIVE Antibody Screen NEGATIVE Hct 32.1 % (37-47) L Hgb 10.3 g/dL (12.0-15.0) L Obstetrics Ultrasound Syphilis Total Ab Non-reactive Rubella IgG Antibody Reactive (Nonreactive) Hep Bs Antigen Non-Reactive (Nonreactive) Hepatitis C Antibody Non-Reactive (Nonreactive) Chlamydia DNA (KRISTIE) Negative (Negative) N.gonorrhoeae DNA (KRISTIE) Negative (Negative) HIV 1&2 Antibody Non-Reactive (Nonreactive) Glucose 1 Hr 50 gm 85 mg/dL (70-140) Miscellaneous Test Assessment & Plan (1) Vaginal delivery: COMMENT: SM IOL postdates 40 boy walker (2) Supervision of low-risk : QUALIFIERS: Trimester: second trimester Qualified Code(s): Z34.92 - Encounter for supervision of normal , unspecified, second trimester COMMENT: PRR CLARITA 01/13/2023 boy PC: Hugo. : laci (3) : QUALIFIERS: Weeks of gestation: 38 weeks Qualified Code(s): Z3A.38 - 38 weeks gestation of COMMENT: GBS neg, nl anatomy. carrier declined, NIPT low risk, neg afp PLAN: Plan Patient presents IOL, plan management for with pitocin/AROM. Pain management: plans epidural. GBS negative. Management of any complications: none I have reviewed the [facility] and made any clinically relevant updates.
--- NOTE | 2024-01-16 16:49 | EX.PCM.OBRPT ---
Assessment & Plan (1) Supervision of low-risk : QUALIFIERS: Trimester: second trimester Qualified Code(s): Z34.92 - Encounter for supervision of normal , unspecified, second trimester COMMENT: PRR CLARITA 01/13/2023 boy PC: Hugo. : laci (2) : QUALIFIERS: Weeks of gestation: 38 weeks Qualified Code(s): Z3A.38 - 38 weeks gestation of COMMENT: GBS neg, nl anatomy. carrier declined, NIPT low risk, neg afp (3) Vaginal delivery: COMMENT: SM IOL postdates 40 boy walker Maternal Data Information CLARITA Calculator Estimated Delivery Date Method Current WG Current Estimate 01/14/24 LMP (Certain) 40w 2d Other Estimates 01/15/24 Ultrasound #1 40w 1d Vaginal Delivery Operative Information Date of Procedure: 01/16/24 Pre-Operative Diagnosis: see a/p diagnoses Post-Operative Diagnosis: same Surgery / Procedure Performed: Spontaneous Vaginal Delivery Type of Anesthesia: Epidural Special Medications: none Estimated Blood Loss: 200 Fluids Replaced: crystalloid Findings Description of Procedure: Patient began pushing and delivered the head in the LEON presentation. The head was delivered atraumatically . The anterior and posterior shoulders delivered without complication followed by the rest of the and the infant was placed on the maternal abdomen. Delayed cord clamping was employed for approximately 60 seconds. Cord was clamped and cut and gentle traction was applied to the cord and the placenta delivered spontaneously immediately following it was noted to be intact with three-vessel cord. The perineum and vagina were inspected and noted to have no laceration. EBL was 300. Patient and infant tolerated delivery well. Amniotic Fluid Description: Clear Placental Delivery Description: Spontaneous Placenta Disposition: [facility] Cord Vessel Description: 3 Vessels Cord Entanglement: None Delayed Cord Clamping: Yes Post Vaginal Delivery Medications Given After Delivery: IV Pitocin Episiotomy Description: None Complication Complications: None Procedures Urinary/Genital [id number]: [id number] Vaginal Delivery global pkg
--- NOTE | 2024-01-16 17:04 | DCINST_ITS ---
Discharge Instructions Diet Discharge Diet: No restrictions Activity Discharge Activity: Return to Normal Activity, May Not Drive (while taking narcotic pain medications.) and May Shower May resume sexual activity in: 4-6 weeks Dressing / Incision Call your doctor if your incision/area has: Continuous Slow Oozing, Sudden Increased Bleeding, Increased Pain/ Swelling, Increased Redness and Foul Smelling Discharge Follow Up Care Please Follow Up With: Riddhi Villalobos MD When: Call [phone] to make an appointment with your doctor in 6 weeks. If you had elevated blood pressure or 4th degree laceration, you will need to be seen in 2 weeks. Test Results: Test results from this visit will be discussed in further detail at your follow- up appointment, if applicable. Discharge Plan Admission Admit Date/Time: 01/16/24 07:11 Attending Provider: Riddhi Villalobos Primary Care Provider: Veean Vizcaino Discharge Orders/Prescriptions Prescriptions: No Action PNV-DHA 27 mg iron-1 mg -300 mg capsule 1 cap PO DAILY Referrals / Follow Up: Veena Vizcaino PA [Primary Care Provider] - Disposition Disposition (needs filled in before D/C Order can be placed): Home, Self Care
[2024-01-16] MEDS: Acetaminophen 500 MG Tablet 1000 MG PO (19:42)
[2024-01-17 04:19] VITALS: BP 111/71; PULSE 66; PULSE 72; RESP 16; TEMP 36.6; O2SAT 97
[2024-01-17] MEDS: Acetaminophen 500 MG Tablet 1000 MG PO (04:23)
--- NOTE | 2024-01-17 08:01 | PCM.PN.OB ---
Subjective Subjective Patient doing well without complaints. Tolerating PO. Ambulating and voiding without difficulty. Feeding well. Denies chest pain, shortness of breath, calf pain/swelling, fevers, chills, lightheadedness. Objective Data Objective Data Vital Signs: Vital Signs Temp Pulse Resp BP Pulse Ox O2 Del Method 97.9 F 66 16 111/71 97 Room Air 01/17/24 04:19 01/17/24 04:19 01/17/24 04:19 01/17/24 04:19 01/17/24 04:19 01/17/24 04:19 Oxygen Delivery Method Room Air Weight: 142 lb 10.225 oz Body Mass Index (BMI) 26.1 Intake & Output: Intake and Output for Last 24 Hours 01/15/24 01/16/24 01/17/24 23:59 23:59 23:59 Intake Total 3000.00 / 3000.00 Output Total 1600 / 1600 Balance 1400.00 / 1400.00 Lab / Micro Data 01/16/24 07:40 Labs: Laboratory Results - last 24 hr 01/16/24 07:40: WBC 8.0, RBC 3.54 L, Hgb 10.3 L, Hct 32.1 L, MCV 90.7, MCH 29.1, MCHC 32.1, RDW Std Deviation 46.5 H, RDW Coeff of Roque 14.0, Plt Count 176, MPV 13.3 H, Immature Gran % (Auto) 0.500, Neut % (Auto) 77.5 H, Lymph % (Auto) 15.4 L, Alfalfa % (Auto) 6.0, Eos % (Auto) 0.2, Baso % (Auto) 0.4, Absolute Neuts (auto) 6.2, Absolute Lymphs (auto) 1.23, Nucleated RBC % 0, Syphilis Total Ab Non-reactive, Blood Type A POSITIVE, Antibody Screen NEGATIVE Physical Exam Const alert and oriented x3 HEENT normocephalic Eyes PERRL Neck full ROM Resp normal respiratory effort GI soft to palpation GI Narrative: FF below U Assessment & Plan (1) Vaginal delivery: COMMENT: SM IOL postdates 40 boy walker PLAN: Plan s/p PPD # 1 1. routine post delivery care 2. breast feeding- support given 3. rh positive 4. rubella immune 5.home today
[2024-01-17 08:35] VITALS: BP 111/64; PULSE 78; O2SAT 81
[2024-01-17 09:36] VITALS: BP 111/64; PULSE 64; RESP 17; TEMP 36.5; O2SAT 98
[2024-01-17 12:00] VITALS: BP 124/82; PULSE 74; PULSE 76; RESP 17; TEMP 36.8; O2SAT 81; O2SAT 99
[2024-01-17 15:32] VITALS: BP 117/69; PULSE 84
[2024-01-17 15:42] VITALS: BP 117/69; PULSE 84; RESP 15; TEMP 36.7; O2SAT 98
--- NOTE | 2024-01-23 13:56 | NURSING ---
Attempted f/up phone call on 01/23/24 at 1357. No answer, left voicemail with unit phone number if pt. has questions or concerns.
== END 2024-01-17 17:10 | disposition home or self-care (01) | DRG 807 ==
PROVIDERS: Admitting Provider Obstetrics & Gynecology; PCP Physician Assistant Medical; Referring Provider Advanced Practice Midwife; Visit Provider Obstetrics & Gynecology
DX: O80 Encounter for full-term uncomplicated delivery (principal); Z37.0 Single live birth; Z3A.40 40 weeks gestation of pregnancy
CPT/HCPCS: 59025; 59050; 85025; 86780; 86850; 86900; 86901; 99221; J7120; A4216; G0378; J2405

== ENCOUNTER → 2025-04-09 | Outpatient (CLI) | payer OTHER, SELFPAY ==
[2025-04-09 12:33] LABS: Hematocrit 42.1 % (37-47); Hemoglobin 14.7 g/dL (12.0-15.0); Immature Granulocytes Count 0.020 X10^3/uL (0.0-0.0); Mean Corp Hgb Conc 34.9 g/dL (32-36); Mean Corpuscular Volume 90.9 fL (81-99); Mean Platelet Vol. 11.5 fl (6.2-12.0); NRBC Flagged by Analyzer 0 % (0-5); Platelet Count 242 K/mm3 (150-450); RBC Distribution Width CV 12.3 % (11.6-14.6); RBC Distribution Width SD 40.8 fl (35.1-43.9); Red Blood Count 4.63 M/mm3 (4.2-5.4); White Blood Count 5.6 K/mm3 (4.4-11.0)
[2025-04-09 13:40] LABS: AST(SGOT) 11 U/L (<=31); Alanine Aminotransfer ALT/SGPT 9 U/L (<=34); Albumin, Serum 4.5 g/dL (3.5-5.0); Alkaline Phosphatase 40 U/L (35-104); Anion Gap 12 (5-15); BUN 11 mg/dL (4-19); BUN/Creat Ratio 15.3 RATIO (10-20); Calcium,Total 9.5 mg/dL (7.6-11.0); Carbon Dioxide 21.7 mmol/L (21.0-32.0); Chloride 106 mmol/L (98-108); Cholesterol 140 mg/dL (<=200); Ferritin 23 ng/mL (22-378); Globulin 2.8 g/dL (2.2-4.2); Glucose 84 mg/dL (70-99); Low Density Lipoprotein Calc. 72 mg/dL; Potassium 4.0 mmol/L (3.3-5.1); Triglycerides 42 mg/dL; Very Low Density Lipoprotein 8 mg/dL (5-40); Vitamin B12 404 pg/mL (180-914); Vitamin D,25 Hydroxy 23.5 ng/mL (30-100); cholesterol:hdl ratio screen 2.36
[2025-04-09 13:56] LABS: Iron 134 ug/dL (50-170); Iron Binding Capacity,Total 295 ug/dL (250-450); Iron Binding Capacity,Unsat 161 ug/dL (228-428)
--- OUTSIDE RECORDS SUMMARY | 2025-04-09 18:49 | XMS RPT_ITS | CCD ---
Author Organization [facility] Care Team Providers Care Ladle Repairman Name Role Phone FRANCOEDITHJAMSHIDAILEEN JAY Attending Unavailab GEREMIAS Costa Primary Care Unavailable Yennifer Tracy Unavailable Unavailable Unavailable Ms. YENNIFER PEMBERTON Referring Unavailab lee PEMBERTON, MsGlen LIU Attending Unavailab lee PEMBERTON, MsGlen LIU Primary Care Unavailab YENNIFER Lang Primary Care Unavailable YENNIFER TRACY Referring Unavailable YENNIFER TRACY Attending Unavailable ANNE-MARIE Aguero Attending Provider [phone] ANNE-MARIE Aguero Attending Provider Dr. Riddhi Villalobos Attending Provider KERRY Decker Primary Care Provider KERRY Decker Referring Provider SHENG MAURICIO Primary Care Unavailable RODOLFO AGUERO Referring Unavailable MAT CUADRA Attending Unavailable ANNE-MARIE Aguero Attending Provider [phone] ANNE-MARIE Graham Attending Provider Lois ZAVALA, DENY Sanon Attending Provider KERRY Decker Primary Care Provider KERRY Decker Referring Provider ANNE-MARIE Aguero Attending Provider ANNE-MARIE Graham Attending Provider Lois SUPERVISING LIBRARIAN, LUCAS-Maximino Sanon Attending Provider Dr. Shelly Lyons Attending Provider Harrison PA, PA Olmito Primary Care Provider Harrison PA, PA Veena Referring Provider [phone] ANNE-MARIE Aguero Attending Provider Dr. Bryan Toscano Attending Provider Dr. Riddhi Villalobos Referring Provider [phone] Dr. Riddhi Villalobos Attending Provider [phone] Dr. Riddhi Villalobos Other Provider Luis ZAVALA, DENY Simental Attending Provider Harrison PA, Olmito Primary Care Unavailabl e Kamille Smith NP Attending Unavailable Harrison PA, Olmito Primary Care Unavailabl e Bryan Toscano Referring Unavailable Bryan Toscano Attending Unavailable Talita Abreu NP Referring Unavailable Talita Abreu NP Attending Unavailable Kamille Smith NP Attending Unavailable Carrillo PA, Olmito Primary Care Unavailabl e Rodolfo Aguero Attending Unavailable Harrison PA, [place]mito Primary Care Unavailabl e Rodolfo Aguero Referring Unavailable Rodolfo Aguero Attending Unavailable Rodolfo Aguero Referring Unavailable Carrillo PA, [place]o Primary Care Unavailabl e Harrison PA, [place]o Primary Care Unavailabl e Shelly Lyons Attending Unavailabl e Shelly Lyons Referring Unavailabl e Harrison PA, [place]o Primary Care Unavailabl Riddhi Clancy Attending Unavailable Riddhi Villalobos Referring Unavailable Kamille Graham Referring Unavailable Riddhi Villalobos Attending Unavailable Carrillo PA, [place]o Primary Care Unavailabl Riddhi Clancy Admitting Unavailable Carrillo PA, Olmito Primary Care Unavailabl e Carrillo PA, Veena Referring Unavailabl e Lois SUPERVISING LIBRARIANTalita Attending Unavailable Harrison PA, [place]mito Primary Care Unavailabl e Carrillo PA, Veena Referring Unavailabl e Shelly Lyons Attending Unavailabl Kamille Urena Attending Unavailable Carrillo PA, [place]o Primary Care Unavailabl e Carrillo PA, Ol[place]o Referring Unavailabl e Carrillo PA, [place]o Primary Care Unavailabl e Carrillo PA, Veena Referring Unavailabl Riddhi Clancy Attending Unavailable Carrillo PA, [place]o Primary Care Unavailabl e Bryan Toscano Attending Unavailable Harrison PA, Veena Referring Unavailabl e Harrison PA, Olmito Primary Care Unavailabl e Carrillo PA, Veena Referring UnavailKamille Gabriel Attending Unavailable Carrillo PA, [place]o Primary Care Unavailabl e Bryan Toscano Attending Unavailable Riddhi Villalobos Referring Unavailable Harrison PA, [place]o Primary Care UnavailRiddhi Hunter Attending Unavailable Riddhi Villalobos Consulting Unavailable Riddhi Villalobos Referring Unavailable Rodolfo Aguero Consulting Unavailable Carrillo PA, Olmito Primary Care UnavailRiddhi Hunter Attending Unavailable Riddhi Villalobos Referring Unavailable Kamille Graham Attending Unavailable Harrison PA, [place]mito Primary Care Unavailabl e Harrison PA, Veena Referring UnavailKamille Gabriel Referring Unavailable Harrison PA, [place]o Primary Care Unavailabl e Lois SUPERVISING LIBRARIAN, Talita Attending Unavailable Riddhi Villalobos Consulting Unavailable Riddhi Villalobos Admitting Unavailable Kamille Graham Attending Unavailable Harrison PA, [place]o Primary Care Unavailabl e Carrillo PA, Veena Referring Unavailabl e Carrillo PA, Ol[place]o Primary Care Unavailabl e Bryan Toscano Attending Unavailable Riddhi Villalobos Attending Unavailable Kamille Graham Referring Unavailable Kamille Graham Attending Unavailable Harrison PA, [place]o Primary Care Unavailabl e Harrison PA, [place]o Primary Care Unavailabl e Harrison PA, Veena Referring Unavailabl Riddhi Clancy Attending Unavailable Rodolfo Aguero Attending Unavailable Carrillo PA, [place]o Primary Care Unavailabl e Carrillo PA, Veena Referring Unavailabl e Rodolfo Aguero Attending Unavailable Carrillo PA, [place]o Primary Care Unavailabl e Carrillo PA, Veena Referring Unavailabl e Rodolfo Aguero Attending Unavailable Carrillo PA, [place]o Primary Care UnavailRiddhi Hunter Attending Unavailable Carrillo PA, Veena Referring Unavailabl e Harrison PA, Olmito Primary Care Unavailabl e Carrillo PA, Veena Referring Unavailabl e Shelly Lyons Attending Kamille Rizo Attending Alisha PAYNE, Ol[place]o Primary Care Unavailabl e Carrillo PAYNE, Veena Referring Unavailabl e Carrillo PAYNE, Olmito Primary Care Unavailabl e Carrillo PAYNE, [place]o Referring Unavailabl e Shelly Lyons Attending Stella Graham, Kamille Attending Unavailable Carrillo PAYNE, Veena Referring Unavailabl e Carrillo PAYNE, Olmito Primary Care Unavailabl e Carrillo PAYNE, Olmito Referring Unavailabl e Carrillo PAYNE, [facility] Care Unavailabl e Nishant Silva, Shelly Attending Rodolfo Linda Attending Unavailable Medications Current Medications Medication Drug Class(es) Dates Sig (Normalized) Sig (Original) Multivit 76-Nizt-Osjoqs 1-Dha (Pnv-Dha) 27 mg iron-1 mg -300 mg capsule (7 sources) Start: 06-10-2023 take 1 capsule by mouth once daily Multivit 53-Obwk-Ztxznr 1-Dha (Pnv-Dha) 27 mg iron-1 mg -300 mg capsule Active 1 CAP PO DAILY June 10, 2023 12:00am Start: 06-10-2023 Multivit 47-Ir on-Folate 1-Dha (Pnv-Dha) 27 mg iron-1 mg -300 mg capsule Active CAP PO June 09, 2023 11:00pm Start: 06-10-2023 Multivit 47-Ir on-Folate 1-Dha (Pnv-Dha) 27 mg iron-1 mg -300 mg capsule Active CAP PO June 10, 2023 12:00am Completed/Discontinued Medications Medication Drug Class(es) Dates Sig [...] TABLET DAILY. Quantity: 90 Refills: 0 Ordered: 3-Feb-202Yennifer Resendiz Start : 17-Sep-2022 Active vitamin b12 1 mg oral tablet (1 source) Vitamin B12 Start: 11-17-2023 End: 11-25-2023 take 1000 ug by mouth once daily Cyanocobalamin (Vitamin B-12) Discontinued 1000 MCG PO DAILY November 17, 2023 12:00am November 25, 2023 2:56pm Problems Active Problems Problem Classification Problem Date Documented Date Episodic/Chronic Administrative/social admission (2 sources) Patient encounter status; Translations: [Other reasons for seeking consultation] Episodic Anxiety disorders (4 sources) Anxiety; Translations: [Anxiety state, unspecified] Onset: 09-25-2022 Chronic Contraceptive and procreative management (2 sources) Encounter for insertion of intrauterine contraceptive device; Translations: [Encounter for contraceptive management, unspecified] Onset: 03-16-2024 Episodic Nutritional deficiencies (2 sources) Deficiency of other specified B group vitamins; Translations: [Deficiency of other specified B group vitamins] Onset: 10-27-2022 Episodic Other circulatory disease (3 sources) Low blood pressure; Translations: [Hypotension, unspecified] 11-02-2023 Episodic Other complications of (9 sources) Spotting per vagina in ; Translations: [Spotting complicating , unspecified trimester] 06-01-2023 Episodic Screening and history of mental health and substance abuse codes (2 sources) H/O: psychiatric disorder; Translations: [Personal history of neurosis] Episodic Past or Other Problems Problem Classification Problem Date Documented Da te Episodic/Chronic Conditions associated with dizziness or vertigo (2 sources) Dizziness; Translations: [Dizziness and giddiness] Onset: 12-02-2023 12-02-2023 Episodic Other circulatory disease (6 sources) Hypotension, unspecified; Translations: [Hypotension, unspecified] Onset: 12-09-2023 11-02-2023 Episodic Other complications of (4 sources) Spotting complicating , unspecified trimester; Translations: [Spotting complicating , unspecified as to episode of care or not applicable] Onset: 06-09-2023 06-10-2023 Episodic Other complications of (1 source) Diseases of the circulatory system complicating , unspecified trimester; Translations: [Diseases of the circulatory system complicating , unspecified trimester] Onset: 11-22-2023 Episodic Other complications of (1 source) Decreased movements, unspecified trimester, not applicable or unspecified; Translations: [Decreased movements, unspecified trimester, not applicable or unspecified] Onset: 11-02-2023 Episodic Other and delivery including normal (20 sources) ; Translations: [Encounter for supervision of normal , unspecified, unspecified trimester] Onset: 01-02-2024 06-10-2023 Episodic Residual codes; unclassified (2 sources) 38 weeks gestation of ; Translations: [38 weeks gestation of ] Onset: 01-03-2024 Episodic Residual codes; unclassified (1 source) 37 weeks gestation of ; Translations: [37 weeks gestation of ] Onset: 12-28-2023 Episodic Residual codes; unclassified (1 source) 24 weeks gestation of ; Translations: [24 weeks gestation of ] Onset: 09-27-2023 Episodic Results Test Name Value Interpretation Reference Range Facility City Planner Office Visit Reporton 03-16-2024 City Planner Office Visit Report [facility] [address] [place] [address] OFFICE VISIT Date of Service: 03/16/24 MR#: [id number] Acct: [id number] Name: MYLENE YATES Rep #: [id number] : 2000 Provider: ANNE-MARIE Wolfe ams Age/Sex: 23/F Location: [facility] Status: Signed Intake Vital Signs 02/29/24 14:55 03/16/24 10:51 Height 5 ft 2 in 5 ft 2 in Weight: 118 lb BMI 21.5 BP 113/67 Blood Pressure Location Rt brachial Position Sitting Pulse 109 H Pulse Source Monitor Intake Visit Reasons: IUD INSERT Chief Complaint: Mirena IUD Insert Is patient in pain?: No Feel stressed/tense/nervou s/anxious/difficulty sleeping: not at all Allergies No Known Allergies Allergy (Verified 03/16/24 10:53) Medications ???Medication ???Instructions ???Recorded ???Confirmed ???Type multivitamin no.47-iron fum 27 1 cap PO DAILY 10/27/23 08/02/24 History mg-folate no.1 1 mg-dha 300 mg capsule (PNV-DHA) : Yes PFSH PFSH Medical History (Updated 03/16/24 @ 11:18 by Kamille Graham CNM) Supervision of low-risk Contraceptive management Dizziness Hypotension Vaginal delivery Surgical History Hx of tonsillectomy Family History Grandmother Hypertension Breast cancer Social History adopted: No household members: spouse housing: house current occupational status: employed current occupation: [employer] current occupational exposures/hazards: No pets and animals: Yes pets and animals: dog(s) history of recent travel: No sexually active: Yes Smoking Status: Never smoker alcohol intake: current details: socially substance use type: does not use caffeine: Yes seatbelt use: always do you feel safe at home: Yes 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 Date Name GA/Weeks Outcome Route Bth Weight Infant Gen Labor Lgth Anesthesia Del Locatn Provider FOB 07/18/20 Hugo 39 live - full term 7lb 13 oz [place] An[place]bal 01/16/24 Walker 40 live - full term 7#11 Male epidural [facility] [place] Delivery Date: 01/16/24 Last Updated by: Swetha Meade see problem list for complications, and IOL elective SM . HPI IUD INSERT Details: MYLENE YATES is a 23 year old who presents for IUD insertion. ROS Const Constitutional: Reports system reviewed and no additional complaints, except as documented Cardio Card: Reports system reviewed and no additional complaints, except as documented Resp Resp: Reports system reviewed and no additional complaints, except as documented GI GI: Reports system reviewed and no additional complaints, except as documented : Reports system reviewed and no additional complaints, except as documented; Denies difficulty voiding, dysuria or urinary frequency Skin Skin/Breast: Reports system reviewed and no additional complaints, except as documented Neuro Neuro: Reports system reviewed and no additional complaints, except as documented Psych Psych: Reports system reviewed and no additional complaints, except as documented Exam Const General: cooperative, healthy appearing, comfortable and no acute distress Resp Effort Inspection: normal respiratory effort, able to speak in complete sentences and symmetric chest movement GI Inspection: normal to inspection Palpation: soft External Female Exam: normal external appearance and normal appearance of the urethra Urethra: normal appearance of the urethra Speculum Exam - Vagina: normal appearance of the vagina and normal vaginal discharge Speculum Exam - Cervix: normal appearance of the cervix and nontender Bimanual Exam- Vagina Uterus: normal bimanual exam, normal palpation, uterine size normal, No tender and non-tender Bimanual Exam- Adnexa, other: normal Pelvic Support: normal Neuro General: patient alert, patient awake and patient oriented x3 Cognition: normal cognition Speech: speech normal Gait: normal gait Psych Appearance: grossly normal and well kempt Mental Status: mental status grossly normal Affect: normal affect Speech and Movement: speech and movement normal Attitude: cooperative Thought Process: normal Thought Content: normal Judgment: judgment good Office Procedures IUD Insertion IUD GC/Chlamydia:: not done Test: Yes Negative (more content not included)... Normal [facility] City Planner Office Visit Reporton 02-29-2024 City Planner Office Visit Report [facility] [address] [place] [address]. [address] [place] [address] OFFICE VISIT Date of Service: 02/29/24 MR#: [id number] Acct: [id number] Name: MYLENE YATES Rep #: [id number] : 2000 Provider: ANNE-MARIE Wolfe ams Age/Sex: 23/F Location: [facility] Status: Signed Intake Vital Signs 01/16/24 07:08 02/29/24 14:52 02/29/24 14:55 Height 5 ft 2 in 5 ft 2 in 5 ft 2 in Weight: 117 lb BMI 21.4 BP 116/81 H Intake Visit Reasons: visit (obstetrics) Theology Professor Required: No Is patient in pain?: No Allergies No Known Allergies Allergy (Verified 02/29/24 14:54) Medications ???Medication ???Instructions ???Recorded ???Confirmed ???Type multivitamin no.47-iron fum 27 1 cap PO DAILY 06/10/23 02/29/24 History mg-folate no.1 1 mg-dha 300 mg capsule (PNV-DHA) : Yes PFSH Medical History Dizziness Hypotension Vaginal delivery Surgical History Hx of tonsillectomy Family History Grandmother Hypertension Breast cancer Social History adopted: No household members: spouse housing: house current occupational status: employed current occupation: [employer] current occupational exposures/hazards: No pets and animals: Yes pets and animals: dog(s) history of recent travel: No sexually active: Yes Smoking Status: Never smoker alcohol intake: current details: socially substance use type: does not use caffeine: Yes seatbelt use: always do you feel safe at home: Yes 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 Date Name GA/Weeks Outcome Route Bth Weight Gen Labor Lgth Anesthesia Del Locatn Provider FOB 07/18/20 Hugo 39 live - full term 7lb 13 oz [place] An[place]bal 01/16/24 Walker 40 live - full term 7#[address] [facility] [place] Delivery Date: 01/16/24 Last Updated by: Swetha Meade see problem list for complications, and IOL elective SM . Depression Screen PHQ-2/9 PHQ-2 Over the last 2 weeks, how often have you been bothered by any of the following problems? 1. Little interest or pleasure in doing things: not at all 2. Feeling down, depressed, or hopeless: not at all Total score: 0 Post HPI Routine Follow-Up: Details: MYLENE YATES is a 23 year old who presents for her post visit. Feeding: Breast Menses resumed: No Regino Ramirez since delivery: Yes Emotional Support: Yes Last Pap:: 2021 Control Method: Would like IUD ROS Const All systems reviewed are unremarkable except as noted in H Reports system reviewed and no additional complaints, except as documented Card Reports system reviewed and no additional complaints, except as documented GI Reports system reviewed and no additional complaints, except as documented Neuro Yes system reviewed and no additional complaints, except as documented Psych Reports system reviewed and no additional complaints, except as documented, Denies anhedonia, Denies depression, Denies homicidal ideation and Denies suicidal ideation Exam Const General: cooperative, healthy appearing and comfortable Nutritional Appearance: average body habitus Orientation: alert, awake and oriented x3 Neck Neck: normal visual inspection and full ROM Resp Effort Inspection: normal respiratory effort, able to speak in complete sentences and symmetric chest movement GI Inspection: normal to inspection Palpation: soft External Female Exam: normal external appearance and normal appearance of the urethra Urethra: normal appearance of the urethra Speculum Exam - Vagina: normal appearance of the vagina and normal vaginal discharge Bimanual Exam- Vagina Uterus: normal bimanual exam, normal palpation and uterine size normal Bimanual Exam- Adnexa, other: normal adnexae and normal Pelvic Support: normal Neuro General: patient alert, patient awake, patient oriented x3 and moves all extremities Psych Appearance: grossly normal and well kempt Mental Status: mental status grossly normal Affect: normal affect Speech and Movement: speech and movement normal Attitude: cooperative Thought Process: normal Thought Content: normal Judgment: judgment good Coding Level of Care Code No Charge Diagnoses Routine Follow-Up Z39.2 Asse (more content not included)... Normal [facility] CBC W/Diff, Automatedon 06-0 Absolute Lymph 1.23 X10 3/uL Normal 0.83-4.51 [facility] Comment on above: Performed By: #### B TS, L100.0100 #### [facility] [address] [place], [place], [id number] Absolute Neut 6.2 X10 3/uL Normal 2.0-7.7 [facility] Comment on above: Performed By: #### B TS, L100.0100 #### [facility] [address] [place], [address] Basophils/100 WBC (Bld) 0.4 % Normal 0-1 [facility] Comment on above: Performed By: #### Ávlaro HALL, L100.0100 #### [facility] [address] [place], [address] Eosinophils/100 WBC (Bld) 0.2 % Normal 0-5 [facility] Comment on above: Performed By: #### Álvaro HALL, L100.0100 #### [facility] [address] [place], [address] Erythrocyte distribution width (RBC) [Ratio] 14.0 % Normal 11.6-14.6 [facility] Comment on above: Performed By: #### Álvaro HALL, L100.0100 #### [facility] [address] [place], [address] Hematocrit (Bld) [Volume fraction] 32.1 % Low 37-47 [facility] Comment on above: Performed By: #### Álvaro HALL, L100.0100 #### [facility] [address] [place], [address] Hemoglobin (Bld) [Mass/Vol] 10.3 g/dL Low 12.0-15.0 [facility] Comment on above: Performed By: #### Álvaro HALL, L100.0100 #### [facility] [address] [place], [address] IG% 0.500 Normal 0.0-0.9 [facility] Comment on above: Result Comment: IG% - Immature Granulocytes (promyelocytes, myelocytes and metamyelocytes) > 1% indicates that a LEFT SHIFT is Present. Performed By: #### Álvaro HALL, L100.0100 #### [facility] [address] [place], [address] Lymphocytes/100 WBC (Bld) 15.4 % Low 19-41 [facility] Comment on above: Performed By: #### Álvaro HALL, L100.0100 #### [facility] [address] [place], [address] MCH (RBC) [Entitic mass] 29.1 pg Normal 27.0-32.0 [facility] Comment on above: Performed By: #### Álvaro HALL, L100.0100 #### [facility] [address] [place], [address] MCHC (RBC) [Mass/Vol] 32.1 g/dL Normal 32-36 [facility] Comment on above: Performed By: #### Álvaro HALL, L100.0100 #### [facility] [address] [place], [address] MCV (RBC) [Entitic vol] 90.7 fL Normal 81-99 [facility] Comment on above: Performed By: #### Álvaro HALL, L100.0100 #### [facility] [address] [place], [address] Monocytes/100 WBC (Bld) 6.0 % Normal 0-10 [facility] Comment on above: Performed By: #### Álvaro HALL, L100.0100 #### [facility] [address] [place], [address] Neutrophils/100 WBC (Bld) 77.5 % High 47-70 [facility] Comment on above: Performed By: #### Álvaro HALL, L100.0100 #### [facility] [address] [place], [address] Nucleated RBC (Bld) [#/Vol] 0 10*3/uL Normal 0-5 [facility] Comment on above: Performed By: #### Álvaro HALL, L100.0100 #### [facility] [address] [place], [address] Platelet mean volume (Bld) [Entitic vol] 13.3 fL High 6.2-12.0 [facility] Comment on above: Performed By: #### Álvaro HALL, L100.0100 #### [facility] [address] [place], [address] Platelets (Bld) [#/Vol] 176 10*3/uL Normal 150-450 [facility] Comment on above: Performed By: #### Álvaro HALL, L100.0100 #### [facility] [address] [place], [address] RBC (Bld) [#/Vol] 3.54 10*6/uL Low 4.2-5.4 [facility] Comment on above: Performed By: #### Álvaro HALL, L100.0100 #### [facility] [address] [place], [address] RDW SD 46.5 fl High 35.1-43.9 [facility] Comment on above: Performed By: #### Álvaro HALL, L100.0100 #### [facility] [address] [place], [address] WBC (Bld) [#/Vol] 8.0 10*3/uL Normal 4.4-11.0 [facility] Comment on above: Performed By: #### Álvaro HALL, L100.0100 #### [facility] [address] [place], [address] Discharge Instructionon Discharge Instruction [facility] Medical Records Department [address] [place] [address] Instructions for Home/Discharge Instructions 01/16/24 1704 MR#: [id number] Acct: [id number] Name: MYLENE YATES Rep #: [id number] : 2000 23 From: Riddhi Villalobos MD PCP: KERRY Mcgregor Status:ADM IN Discharge Instructions Diet Discharge Diet: No restrictions Activity Discharge Activity: Return to Normal Activity, May Not Drive (while taking narcotic pain medications.) and May Shower May resume sexual activity in: 4-6 weeks Dressing / Incision Call your doctor if your incision/area has: Continuous Slow Oozing, Sudden Increased Bleeding, Increased Pain/ Swelling, Increased Redness and Foul Smelling Discharge Follow Up Care Please Follow Up With: Riddhi Villalobos MD When: Call [phone] to make an appointment with your doctor in 6 weeks. If you had elevated blood pressure or 4th degree laceration, you will need to be seen in 2 weeks. Test Results: Test results from this visit will be discussed in further detail at your follow-up appointment, if applicable. 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 [facility] Medical Records Department [address] [place] [address] H P Exam - ACCOUNTING MACHINE MECHANIC 01/16/24 1645 MR#: [id number] Acct: [id number] Name: MYLENE YATES Rep #: [id number] : 2000 23 From: Riddhi Villalobos MD PCP: KERRY Mcgregor Status:ADM IN Location: [id number] HPI - General General Date of Admission: 01/16/24 HPI Narrative MYLENE YATES, is a 23 F who presents for IOL postdates no vb lof admits good FM no regular ctx Maternal Data Information CLARITA Calculator Estimated Delivery Date Method Current WG Current Estimate 01/14/24 LMP (Certain) 40w 2d Other Estimates 01/15/24 Ultrasound #1 40w 1d PFSH PFSH Medical History (Updated 01/16/24 @ 16:[address] Riddhi Villalobos MD) Dizziness Hypotension Vaginal delivery Home Medications ???Medication ???Instructions ???Recorded ???Last Taken ???Type multivitamin no.47-iron fum 27 1 cap PO DAILY 06/10/23 11/07/23 08:00 History mg-folate no.1 1 mg-dha 300 mg 1 cap capsule (PNV-DHA) Allergy/AdvReac Type Severity Reaction Status Date / Time No Known Allergies Allergy Verified 01/16/24 07:37 Family History Grandmother Hypertension Breast cancer Surgical History Hx of tonsillectomy Social History adopted: No household members: spouse housing: house current occupational status: employed current occupation: [employer] current occupational exposures/hazards: No pets and animals: Yes pets and animals: dog(s) history of recent travel: No sexually active: Yes Smoking Status: Never smoker alcohol intake: current details: socially substance use type: does not use caffeine: Yes seatbelt use: always do you feel safe at home: Yes 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 Date Name GA/Weeks Outcome Route Bth Weight Infant Gen Labor Lgth Anesthesia Del [facility] Provider FOB 07/18/20 Hugo 39 live - full term 7lb 13 oz Male epidural soto Spangler Visit Details Expected Delivery Route/Plan Labor Preferences- CB/BF classes: no labor support person: Aníbal labor intervention preferences: [] pain management options preferred: epidural if requested cut cord/dad catch: yes : yes PP control planned: discussed discussed possible routes of delivery and associated risks: [] special requests: [] Plans Covid status: declined Flu vaccine: declined Tdap vaccine: Rhogam: na LARC form signed: yes Problem list reviewed and updated with the most current plan of care details and appropriate orders placed. Relevant counseling for the gestational age provided. Continue routine care and follow up unless otherwise noted in visit notes/problem list details OB Flowsheet Initial Weight: 112 lb Date -???-???-???-???-???- ???-???-???-???-???-? ??-???- EGA Weight BP Urine Prot -???-???-???-???-???- ???-???-???-???-???-? ??-???- Glucose FHR FuHt Pres Dilation -???-???-???-???-???- ???-???-???-???-???-? ??-???- Effaced St Visit Note 06/10/23 -???-???-???-???-???- ???-???-???-???-???-? ??-???- 8w 6d 112 lb 8 oz (+8 oz) 106/72 -???-???-???-???-???- ???-???-???-???-???-? ??-???- 168 -???-???-???-???-???- ???-???-???-???-???-? ??-???- LC- no vb/cr amping. 1st trimester US on 06/03 CRL con with LMP. CLARITA 01/14/2024. accepts nipt. 07/06/23 -???-???-???-???-???- ???-???-???-???-???-? ??-???- 12w 4d 116 lb 4 oz (+4 lb 4 oz) 103/72 Negative -???-???-???-???-???- ???-???-???-???-???-? ??-???- Negative 160 -???-???-???-???-???- ???-???-???-???-???-? ??-???- SM- no vb cr amping 08/01/23 -???-???-???-???-???- ???-???-???-???-???-? ??-???- 16w 2d 117 lb 6 oz (+5 lb 6 oz) 113/68 Negative -???-???-???-???-???- ???-???-???-???-???-? ??-???- Negative 155 -???-???-???-???-???- ???-???-???-???-???-? ??-???- LC- no vb/cr amping. mfm anatomy ordered. afp discussed and desired. order placed. 08/31/23 -???-???-???-???-???- ???-???-???-???-???-? ??-???- 20w 4d 121 lb 4 oz (+9 lb 4 oz) 116/80 Negative -???-???-???-???-???- ???-???-???-???-???-? ??-???- Negative 155 -???-???-???-???-???- ???-???-???-???-???-? 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 LC-no vb/cramping. anatomy tomorro w. 09/27/23 -???-???-???-???-???- ???-???-???-???-???-? ??-???- 24w 3d 123 lb (+11 lb) 107/71 Negative -???-???-???-???-???- ???-???-???-???-???-? ??-???- Negative 155 24 -???-???-???-?? (more content not included)... Normal [facility] [id number] 01-16-2024 Syphilis Abs Non-Reactive Normal [facility] Comment on above: Performed By: #### L 509.8000 #### [facility] [address] [facility] [place], [address] Operative Reporton 4 Operative Report [facility] Medical Records Department [address] [place] [address] Operative Report 01/16/24 1649 MR#: [id number] Acct: [id number] Name: MYLENE YATES Rep #: [id number] : 2000 23 From: Riddhi Villalobos MD PCP: KERRY Mcgregor Status:ADM IN Location: [id number] Assessment Plan (1) Supervision of low-risk : QUALIFIERS: Trimester: second trimester Qualified Code(s): Z34.92 - Encounter for supervision of normal , unspecified, second trimester COMMENT: PRR CLARITA 01/13/2023 boy PC: Hugo. : aníbal (2) : QUALIFIERS: Weeks of gestation: 38 weeks Qualified Code(s): Z3A.38 - 38 weeks gestation of COMMENT: GBS neg, nl anatomy. carrier declined, NIPT low risk, neg afp (3) Vaginal delivery: COMMENT: SM IOL postdates 40 boy walker Maternal Data Information CLARITA Calculator Estimated Delivery Date Method Current WG Current Estimate 01/14/24 LMP (Certain) 40w 2d Other Estimates 01/15/24 Ultrasound #1 40w 1d Vaginal Delivery Operative Information Date of Procedure: 01/16/24 Pre-Operative Diagnosis: see a/p diagnoses Post-Operative Diagnosis: same Surgery / Procedure Performed: Spontaneous Vaginal Delivery Type of Anesthesia: Epidural Special Medications: none Estimated Blood Loss: 200 Fluids Replaced: crystalloid Findings Description of Procedure: Patient began pushing and delivered the head in the LEON presentation. The head was delivered atraumatically . The anterior and posterior shoulders delivered without complication followed by the rest of the infant and the infant was placed on the maternal abdomen. Delayed cord clamping was employed for approximately 60 seconds. Cord was clamped and cut and gentle traction was applied to the cord and the placenta delivered spontaneously immediately following it was noted to be intact with three-vessel cord. The perineum and vagina were inspected and noted to have no laceration. EBL was 300. Patient and infant tolerated delivery well. Amniotic Fluid Description: Clear Placental Delivery Description: Spontaneous Placenta Disposition: [facility] Cord Vessel Description: 3 Vessels Cord Entanglement: None Delayed Cord Clamping: Yes Post Vaginal Delivery Medications Given After Delivery: IV Pitocin Episiotomy Description: None Complication Complications: None Procedures Urinary/Genital 52xxx-59xxx: [id number] Vaginal Delivery [facility] 01/16/24 1702 Cosigner Signature (if applicable): CC: ANNE-MARIE Graham; Dr. Riddhi Villalobos MD; KERRY Mcgregor Signed Normal [facility] Type AND Screenon 01-16-2024 ABO and Rh group Nom (Bld) Blood group A Rh(D) positive Normal [facility] Comment on above: Order Comment: Labor Performed By: #### B TS, L100.0100 #### [facility] [address] [place], [address] City Planner Office Visit Reporton 01-11-2024 City Planner Office Visit Report [facility] [address] [place] [address] OFFICE VISIT Date of Service: 01/11/24 MR#: [id number] Acct: [id number] Name: MYLENE YATES Rep #: [id number] : 2000 Provider: Dr. Shelly Lovett DO Age/Sex: 23/F Location: [facility] Status: Signed Intake Vital Signs 10/17/23 15:38 01/03/24 14:58 01/11/24 15:31 Height 5 ft 2 in 5 ft 2 in 5 ft 2 in Weight: 144 lb 6 oz BMI 26.4 BP 122/81 H Intake Visit Reasons: 40 WK OB Theology Professor Required: No Is patient in pain?: No Allergies No Known Allergies Allergy (Verified 01/11/24 15:31) Medications ???Medication ???Instructions ???Recorded ???Confirmed ???Type multivitamin no.47-iron fum 27 1 cap PO DAILY 06/10/23 01/11/24 History mg-folate no.1 1 mg-dha 300 mg capsule (PNV-DHA) Last Menstrual Period: 04/09/23 Zika: Zika virus screening: Negative : No PFSH PFSH Medical History Dizziness Hypotension Vaginal delivery Surgical History Hx of tonsillectomy Family History Grandmother Hypertension Breast cancer Social History adopted: No household members: spouse housing: house current occupational status: employed current occupation: [employer] current occupational exposures/hazards: No pets and animals: Yes pets and animals: dog(s) history of recent travel: No sexually active: Yes Smoking Status: Never smoker alcohol intake: current details: socially substance use type: does not use caffeine: Yes seatbelt use: always do you feel safe at home: Yes 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 Date Name GA/Weeks Outcome Route Bth Weight Infant Gen Labor Lgth Anesthesia Del Locatn Provider FOB 07/18/20 Hugo 39 live - full term 7lb 13 oz Male epidural [place] Aníbal HPI 40 WK OB Details: MYLENE YATES is a 23 year old who presents for routine OB visit. OB Visit CLARITA Calculator Estimated Delivery Date Method Current WG Current Estimate 01/14/24 LMP (Certain) 39w 4d Other Estimates 01/15/24 Ultrasound #1 39w 3d Expected Delivery Route/Plan Labor Preferences- CB/BF classes: no labor support person: Aníbal labor intervention preferences: [] pain management options preferred: epidural if requested cut cord/dad catch: yes : yes PP control planned: discussed discussed possible routes of delivery and associated risks: [] special requests: [] Specific Issue/Plans Covid status: declined Flu vaccine: declined Tdap vaccine: Rhogam: na LARC form signed: yes Problem list reviewed and updated with the most current plan of care details and appropriate orders placed. Relevant counseling for the gestational age provided. Continue routine care and follow up unless otherwise noted in visit notes/problem list details Initial Weight: 112 lb Date -???-???-???-???-???- ???-???-???-???-???-? ??-???- EGA Weight BP Urine Prot -???-???-???-???-???- ???-???-???-???-???-? ??-???- Glucose FHR FuHt Pres Dilation -???-???-???-???-???- ???-???-???-???-???-? ??-???- Effaced St Visit Note 06/10/23 -???-???-???-???-???- ???-???-???-???-???-? ??-???- 8w 6d 112 lb 8 oz (+8 oz) 106/72 -???-???-???-???-???- ???-???-???-???-???-? ??-???- 168 -???-???-???-???-???- ???-???-???-???-???-? ??-???- LC- no vb/cr amping. 1st trimester US on 06/03 CRL con with LMP. CLARITA 01/14/2024. accepts nipt. 07/06/23 -???-???-???-???-???- ???-???-???-???-???-? ??-???- 12w 4d 116 lb 4 oz (+4 lb 4 oz) 103/72 Negative -???-???-???-???-???- ???-???-???-???-???-? ??-???- Negative 160 -???-???-???-???-???- ???-???-???-???-???-? ??-???- SM- no vb cr amping 08/01/23 -???-???-???-???-???- ???-???-???-???-???-? ??-???- 16w 2d 117 lb 6 oz (+5 lb 6 oz) 113/68 Negative -???-???-???-???-???- ???-???-???-???-???-? ??-???- Negative 155 -???-???-???-???-???- ???-???-???-???-???-? ??-???- LC- no vb/cr amping. mfm anatomy ordered. afp discussed and desired. order placed. 08/31/23 -???-???-???-???-???- ???-???-???-???-???-? ??-???- 20w 4d 121 lb 4 oz (+9 lb 4 oz) 116/80 Negative -???-???-???-???-???- ???-???-???-???-???-? ??-???- Negative 155 -???-???-???-???-???- ???-???-???-???-???-? 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 LC-no vb/cramping. anatomy tomorr (more content not included)... Normal [facility] City Planner Office Visit Reporton 01-03-2024 City Planner Office Visit Report [facility] [address] [place] [address] OFFICE VISIT Date of Service: 01/03/24 MR#: [id number] Acct: [id number] Name: MYLENE YATES Rep #: [id number] : 2000 Provider: ANNE-MARIE Wolfe ams Age/Sex: 23/F Location: [facility] Status: Signed Intake Vital Signs 10/17/23 15:38 12/28/23 14:28 01/03/24 14:50 01/03/24 14:58 Height 5 ft 2 in 5 ft 2 in 5 ft 2 in 5 ft 2 in Weight: 144 lb BMI 26.3 BP 127/79 H Intake Visit Reasons: 39 WK OB Theology Professor Required: No Is patient in pain?: No Allergies No Known Allergies Allergy (Verified 01/03/24 14:56) Last Menstrual Period: 04/09/23 Zika: Zika virus screening: Negative : No PFSH PFSH Medical History Dizziness Hypotension Vaginal delivery Surgical History Hx of tonsillectomy Family History Grandmother Hypertension Breast cancer Social History adopted: No household members: spouse housing: house current occupational status: employed current occupation: [employer] current occupational exposures/hazards: No pets and animals: Yes pets and animals: dog(s) history of recent travel: No sexually active: Yes Smoking Status: Never smoker alcohol intake: current details: socially substance use type: does not use caffeine: Yes seatbelt use: always do you feel safe at home: Yes 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 Date Name GA/Weeks Outcome Route Bth Weight Gen Labor Lgth Anesthesia Del Locatn Provider FOB 07/18/20 Hugo 39 live - full term 7lb 13 oz Male epidural soto Spangler HPI 39 WK OB Details: MYLENE YATES is a 23 year old who presents for routine OB visit. OB Visit CLARITA Calculator Estimated Delivery Date Method Current WG Current Estimate 01/14/24 LMP (Certain) 38w 3d Other Estimates 01/15/24 Ultrasound #1 38w 2d Expected Delivery Route/Plan Labor Preferences- CB/BF classes: no labor support person: Aníbal labor intervention preferences: [] pain management options preferred: epidural if requested cut cord/dad catch: yes : yes PP control planned: discussed discussed possible routes of delivery and associated risks: [] special requests: [] Specific Issue/Plans Covid status: declined Flu vaccine: declined Tdap vaccine: Rhogam: na LARC form signed: yes Problem list reviewed and updated with the most current plan of care details and appropriate orders placed. Relevant counseling for the gestational age provided. Continue routine care and follow up unless otherwise noted in visit notes/problem list details Initial Weight: 112 lb Date -???-???-???-???-???- ???-???-???-???-???-? ??-???- EGA Weight BP Urine Prot -???-???-???-???-???- ???-???-???-???-???-? ??-???- Glucose FHR FuHt Pres Dilation -???-???-???-???-???- ???-???-???-???-???-? ??-???- Effaced St Visit Note 06/10/23 -???-???-???-???-???- ???-???-???-???-???-? ??-???- 8w 6d 112 lb 8 oz (+8 oz) 106/72 -???-???-???-???-???- ???-???-???-???-???-? ??-???- 168 -???-???-???-???-???- ???-???-???-???-???-? ??-???- LC- no vb/cr amping. 1st trimester US on 06/03 CRL con with LMP. CLARITA 01/14/2024. accepts nipt. 07/06/23 -???-???-???-???-???- ???-???-???-???-???-? ??-???- 12w 4d 116 lb 4 oz (+4 lb 4 oz) 103/72 Negative -???-???-???-???-???- ???-???-???-???-???-? ??-???- Negative 160 -???-???-???-???-???- ???-???-???-???-???-? ??-???- SM- no vb cr amping 08/01/23 -???-???-???-???-???- ???-???-???-???-???-? ??-???- 16w 2d 117 lb 6 oz (+5 lb 6 oz) 113/68 Negative -???-???-???-???-???- ???-???-???-???-???-? ??-???- Negative 155 -???-???-???-???-???- ???-???-???-???-???-? ??-???- LC- no vb/cr amping. mfm anatomy ordered. afp discussed and desired. order placed. 08/31/23 -???-???-???-???-???- ???-???-???-???-???-? ??-???- 20w 4d 121 lb 4 oz (+9 lb 4 oz) 116/80 Negative -???-???-???-???-???- ???-???-???-???-???-? ??-???- Negative 155 -???-???-???-???-???- ???-???-???-???-???-? 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 LC-no vb/cramping. anatomy tomorro w. 09/27/23 -???-???-???-???-???- ???-???-???-???-???-? ??-???- 24w 3d 123 lb (+11 lb) 107/71 Negative -???-???-???-???-???- ???-???-???-???-???-? ??-???- Negative 155 24 -???-???-???-???-???- ???-???-???-???-???-? ??-???- (more content not included)... Normal [facility] City Planner Office Visit Reporton 12-28-2023 City Planner Office Visit Report [facility] [place] [address] [place] [address] OFFICE VISIT Date of Service: 12/28/23 MR#: [id number] Acct: [id number] Name: MYLENE YATES Rep #: [id number] : 2000 Provider: Dr. Shelly Lovett DO Age/Sex: 23/F Location: [facility] Status: Signed Intake Vital Signs 10/17/23 15:38 12/23/23 15:24 12/28/23 14:28 Height 5 ft 2 in 5 ft 2 in 5 ft 2 in Weight: 144 lb 6 oz BMI 26.4 BP 120/83 H Intake Visit Reasons: 38 WK OB Theology Professor Required: No Is patient in pain?: No Allergies No Known Allergies Allergy (Verified 12/28/23 14:31) Medications ???Medication ???Instructions ???Recorded ???Confirmed ???Type multivitamin no.47-iron fum 27 1 cap PO DAILY 06/10/23 12/28/23 History mg-folate no.1 1 mg-dha 300 mg capsule (PNV-DHA) Last Menstrual Period: 04/09/23 Zika: Zika virus screening: Negative : No PFSH PFSH Medical History Dizziness Hypotension Vaginal delivery Surgical History Hx of tonsillectomy Family History Grandmother Hypertension Breast cancer Social History adopted: No household members: spouse housing: house current occupational status: employed current occupation: [employer] current occupational exposures/hazards: No pets and animals: Yes pets and animals: dog(s) history of recent travel: No sexually active: Yes Smoking Status: Never smoker alcohol intake: current details: socially substance use type: does not use caffeine: Yes seatbelt use: always do you feel safe at home: Yes 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 Date Name GA/Weeks Outcome Route Bth Weight Infant Gen Labor Lgth Anesthesia Del Locatn Provider FOB 07/18/20 Hugo 39 live - full term 7lb 13 oz Male epidural soto Spangler HPI 38 WK OB Details: MYLENE YATES is a 23 year old who presents for routine OB visit. OB Visit CLARITA Calculator Estimated Delivery Date Method Current WG Current Estimate 01/14/24 LMP (Certain) 37w 4d Other Estimates 01/15/24 Ultrasound #1 37w 3d Expected Delivery Route/Plan Labor Preferences- CB/BF classes: no labor support person: Aníbal labor intervention preferences: [] pain management options preferred: epidural if requested cut cord/dad catch: yes : yes PP control planned: discussed discussed possible routes of delivery and associated risks: [] special requests: [] Specific Issue/Plans Covid status: declined Flu vaccine: declined Tdap vaccine: Rhogam: na LARC form signed: yes Problem list reviewed and updated with the most current plan of care details and appropriate orders placed. Relevant counseling for the gestational age provided. Continue routine care and follow up unless otherwise noted in visit notes/problem list details Initial Weight: 112 lb Date -???-???-???-???-???- ???-???-???-???-???-? ??-???- EGA Weight BP Urine Prot -???-???-???-???-???- ???-???-???-???-???-? ??-???- Glucose FHR FuHt Pres Dilation -???-???-???-???-???- ???-???-???-???-???-? ??-???- Effaced St Visit Note 06/10/23 -???-???-???-???-???- ???-???-???-???-???-? ??-???- 8w 6d 112 lb 8 oz (+8 oz) 106/72 -???-???-???-???-???- ???-???-???-???-???-? ??-???- 168 -???-???-???-???-???- ???-???-???-???-???-? ??-???- LC- no vb/cr amping. 1st trimester US on 06/03 CRL con with LMP. CLARITA 01/14/2024. accepts nipt. 07/06/23 -???-???-???-???-???- ???-???-???-???-???-? ??-???- 12w 4d 116 lb 4 oz (+4 lb 4 oz) 103/72 Negative -???-???-???-???-???- ???-???-???-???-???-? ??-???- Negative 160 -???-???-???-???-???- ???-???-???-???-???-? ??-???- SM- no vb cr amping 08/01/23 -???-???-???-???-???- ???-???-???-???-???-? ??-???- 16w 2d 117 lb 6 oz (+5 lb 6 oz) 113/68 Negative -???-???-???-???-???- ???-???-???-???-???-? ??-???- Negative 155 -???-???-???-???-???- ???-???-???-???-???-? ??-???- LC- no vb/cr amping. mfm anatomy ordered. afp discussed and desired. order placed. 08/31/23 -???-???-???-???-???- ???-???-???-???-???-? ??-???- 20w 4d 121 lb 4 oz (+9 lb 4 oz) 116/80 Negative -???-???-???-???-???- ???-???-???-???-???-? ??-???- Negative 155 -???-???-???-???-???- ???-???-???-???-???-? 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 LC-no vb/cramping. anatomy tomorr (more content not included)... Normal [facility] Rule out Beta Strep (Grp. B) on 12-26-2023 ALYSSA Group B Beta Streptococcus is not isolated. Normal [facility] Comment on above: Performed By: #### M 100.2200, L7000.1800 #### [facility] [address] [place], [address] City Planner Office Visit Reporton 12-23-2023 City Planner Office Visit Report [facility] [place] [address] [place] [address] OFFICE VISIT Date of Service: 12/23/23 MR#: [id number] Acct: [id number] Name: MYLENE YATES Rep #: [id number] : 2000 Provider: ANNE-MARIE Wolfe ams Age/Sex: 23/F Location: [facility] Status: Signed Intake Vital Signs 12/02/23 14:29 12/13/23 14:23 12/23/23 15:24 12/23/23 15:24 Height 5 ft 2 in 5 ft 2 in 5 ft 2 in 5 ft 2 in Weight: 143 lb BMI 26.2 BP 124/81 H Intake Visit Reasons: 37 WK OB(moved from ) Theology Professor Required: No Is patient in pain?: No Allergies No Known Allergies Allergy (Verified 12/23/23 15:28) Medications multivitamin no.47-iron fum 27 mg-folate no.1 1 mg-dha 300 mg capsule (PNV-DHA) 1 cap PO DAILY 06/10/23 [History Confirmed 12/23/23] Last Menstrual Period: 04/09/23 Zika: Zika virus screening: Negative : No PFSH PFSH Medical History Dizziness Hypotension Vaginal delivery Surgical History Hx of tonsillectomy Family History Grandmother Hypertension Breast cancer Social History adopted: No household members: spouse housing: house current occupational status: employed current occupation: [employer] current occupational exposures/hazards: No pets and animals: Yes pets and animals: dog(s) history of recent travel: No sexually active: Yes Smoking Status: Never smoker alcohol intake: current details: socially substance use type: does not use caffeine: Yes seatbelt use: always do you feel safe at home: Yes 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 Date Name GA/Weeks Outcome Route Bth Weight Gen Labor Lgth Anesthesia Del Locatn Provider FOB 07/18/20 Hugo 39 live - full term 7lb 13 oz Male epidural soto Spangler HPI 37 WK OB(moved from ) Details: MYLENE YATES is a 23 year old who presents for routine OB visit. OB Visit CLARITA Calculator Estimated Delivery Date Method Current WG Current Estimate 01/14/24 LMP (Certain) 36w 6d Other Estimates 01/15/24 Ultrasound #1 36w 5d Expected Delivery Route/Plan Labor Preferences- CB/BF classes: no labor support person: Aníbal labor intervention preferences: [] pain management options preferred: epidural if requested cut cord/dad catch: yes : yes PP control planned: discussed discussed possible routes of delivery and associated risks: [] special requests: [] Specific Issue/Plans Covid status: declined Flu vaccine: declined Tdap vaccine: Rhogam: na LARC form signed: yes Problem list reviewed and updated with the most current plan of care details and appropriate orders placed. Relevant counseling for the gestational age provided. Continue routine care and follow up unless otherwise noted in visit notes/problem list details Initial Weight: 112 lb Date -???-???-???-???-???- ???-???-???-???-???-? ??-???- EGA Weight BP Urine Prot -???-???-???-???-???- ???-???-???-???-???-? ??-???- Glucose FHR FuHt Pres Dilation -???-???-???-???-???- ???-???-???-???-???-? ??-???- Effaced St Visit Note 06/10/23 -???-???-???-???-???- ???-???-???-???-???-? ??-???- 8w 6d 112 lb 8 oz (+8 oz) 106/72 -???-???-???-???-???- ???-???-???-???-???-? ??-???- 168 -???-???-???-???-???- ???-???-???-???-???-? ??-???- LC- no vb/cr amping. 1st trimester US on 06/03 CRL con with LMP. CLARITA 01/14/2024. accepts nipt. 07/06/23 -???-???-???-???-???- ???-???-???-???-???-? ??-???- 12w 4d 116 lb 4 oz (+4 lb 4 oz) 103/72 Negative -???-???-???-???-???- ???-???-???-???-???-? ??-???- Negative 160 -???-???-???-???-???- ???-???-???-???-???-? ??-???- SM- no vb cr amping 08/01/23 -???-???-???-???-???- ???-???-???-???-???-? ??-???- 16w 2d 117 lb 6 oz (+5 lb 6 oz) 113/68 Negative -???-???-???-???-???- ???-???-???-???-???-? ??-???- Negative 155 -???-???-???-???-???- ???-???-???-???-???-? ??-???- LC- no vb/cr amping. mfm anatomy ordered. afp discussed and desired. order placed. 08/31/23 -???-???-???-???-???- ???-???-???-???-???-? ??-???- 20w 4d 121 lb 4 oz (+9 lb 4 oz) 116/80 Negative -???-???-???-???-???- ???-???-???-???-???-? ??-???- Negative 155 -???-???-???-???-???- ???-???-???-???-???-? 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 LC-no vb/cramping. anatomy tomorro w. 09/27/23 -???-???-???-???-?? (more content not included)... Normal [facility] City Planner Office Visit Reporton 12-13-2023 City Planner Office Visit Report [facility] [address] [place] [address] OFFICE VISIT Date of Service: 12/13/23 MR#: [id number] Acct: [id number] Name: MYLENE YATES Rep #: [id number] : 2000 Provider: Dr. Shelly Lovett DO Age/Sex: 23/F Location: [facility] Status: Signed Intake Vital Signs 09/27/23 15:34 12/02/23 14:29 12/13/23 14:22 12/13/23 14:23 Height 5 ft 2 in 5 ft 2 in 5 ft 2 in 5 ft 2 in Weight: 143 lb 4 oz BMI 26.2 BP 110/74 Intake Visit Reasons: 36 WK OB Theology Professor Required: No Is patient in pain?: No Allergies No Known Allergies Allergy (Verified 12/13/23 14:21) Medications multivitamin no.47-iron fum 27 mg-folate no.1 1 mg-dha 300 mg capsule (PNV-DHA) 1 cap PO DAILY 06/10/23 [History Confirmed 12/13/23] Last Menstrual Period: 04/09/23 Zika: Zika virus screening: Negative : No PFSH PFSH Medical History Dizziness Hypotension Vaginal delivery Surgical History Hx of tonsillectomy Family History Grandmother Hypertension Breast cancer Social History adopted: No household members: spouse housing: house current occupational status: employed current occupation: [employer] current occupational exposures/hazards: No pets and animals: Yes pets and animals: dog(s) history of recent travel: No sexually active: Yes Smoking Status: Never smoker alcohol intake: current details: socially substance use type: does not use caffeine: Yes seatbelt use: always do you feel safe at home: Yes 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 Date Name GA/Weeks Outcome Route Bth Weight Infant Gen Labor Lgth Anesthesia Del Locatn Provider FOB 07/18/20 Hugo 39 live - full term 7lb 13 oz Male epidural soto Spang[place] HPI 36 WK OB Details: MYLENE YATES is a 23 year old who presents for routine OB visit. OB Visit CLARITA Calculator Estimated Delivery Date Method Current WG Current Estimate 01/14/24 LMP (Certain) 35w 3d Other Estimates 01/15/24 Ultrasound #1 35w 2d Expected Delivery Route/Plan Labor Preferences- CB/BF classes: no labor support person: Aníbal labor intervention preferences: [] pain management options preferred: epidural if requested cut cord/dad catch: yes : yes PP control planned: discussed discussed possible routes of delivery and associated risks: [] special requests: [] Specific Issue/Plans Covid status: declined Flu vaccine: declined Tdap vaccine: Rhogam: na LARC form signed: yes Problem list reviewed and updated with the most current plan of care details and appropriate orders placed. Relevant counseling for the gestational age provided. Continue routine care and follow up unless otherwise noted in visit notes/problem list details Initial Weight: 112 lb Date -???-???-???-???-???- ???-???-???-???-???-? ??-???- EGA Weight BP Urine Prot -???-???-???-???-???- ???-???-???-???-???-? ??-???- Glucose FHR FuHt Pres Dilation -???-???-???-???-???- ???-???-???-???-???-? ??-???- Effaced St Visit Note 06/10/23 -???-???-???-???-???- ???-???-???-???-???-? ??-???- 8w 6d 112 lb 8 oz (+8 oz) 106/72 -???-???-???-???-???- ???-???-???-???-???-? ??-???- 168 -???-???-???-???-???- ???-???-???-???-???-? ??-???- LC- no vb/cr amping. 1st trimester US on 06/03 CRL con with LMP. CLARITA 01/14/2024. accepts nipt. 07/06/23 -???-???-???-???-???- ???-???-???-???-???-? ??-???- 12w 4d 116 lb 4 oz (+4 lb 4 oz) 103/72 Negative -???-???-???-???-???- ???-???-???-???-???-? ??-???- Negative 160 -???-???-???-???-???- ???-???-???-???-???-? ??-???- SM- no vb cr amping 08/01/23 -???-???-???-???-???- ???-???-???-???-???-? ??-???- 16w 2d 117 lb 6 oz (+5 lb 6 oz) 113/68 Negative -???-???-???-???-???- ???-???-???-???-???-? ??-???- Negative 155 -???-???-???-???-???- ???-???-???-???-???-? ??-???- LC- no vb/cr amping. mfm anatomy ordered. afp discussed and desired. order placed. 08/31/23 -???-???-???-???-???- ???-???-???-???-???-? ??-???- 20w 4d 121 lb 4 oz (+9 lb 4 oz) 116/80 Negative -???-???-???-???-???- ???-???-???-???-???-? ??-???- Negative 155 -???-???-???-???-???- ???-???-???-???-???-? 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 LC-no vb/cramping. anatomy tomorro w. 09/27/23 -???-???-???-???-??? (more content not included)... Normal [facility] City Planner Office Visit Reporton 12-02-2023 City Planner Office Visit Report [facility] [address] [place], [place] [address] OFFICE VISIT Date of Service: 12/02/23 MR#: [id number] Acct: [id number] Name: MYLENE YATES Rep #: [id number] : 2000 Provider: Dr. Riddhi lindquist MD Age/Sex: 23/F Location: [facility] Status: Signed Intake Vital Signs 09/27/23 15:34 11/25/23 14:53 12/02/23 14:27 12/02/23 14:29 Height 5 ft 2 in 5 ft 2 in 5 ft 2 in 5 ft 2 in Weight: 136 lb BMI 24.8 BP 113/72 Intake Visit Reasons: 34 WK OB Theology Professor Required: No Is patient in pain?: No Allergies No Known Allergies Allergy (Verified 12/02/23 14:28) Medications multivitamin no.47-iron fum 27 mg-folate no.1 1 mg-dha 300 mg capsule (PNV-DHA) 1 cap PO DAILY 06/10/23 [History Confirmed 12/02/23] Last Menstrual Period: 04/09/23 Zika: Zika virus screening: Negative : No PFSH PFSH Medical History (Updated 12/02/23 @ 14:[address] 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 Date Name GA/Weeks Outcome Route Bth Weight Infant Gen Labor Lgth Anesthesia Del Locatn Provider FOB 07/18/20 Hugo 39 live - full term 7lb 13 oz Male epidural [place] Aníbal HPI 34 WK OB Details: MYLENE YATES is a 23 year old who presents for routine OB visit. OB Visit CLARITA Calculator Estimated Delivery Date Method Current WG Current Estimate 01/14/24 LMP (Certain) 33w 6d Other Estimates 01/15/24 Ultrasound #1 33w 5d Expected Delivery Route/Plan Labor Preferences- CB/BF classes: no labor support person: Aníbal labor intervention preferences: [] pain management options preferred: epidural if requested cut cord/dad catch: yes : yes PP control planned: discussed discussed possible routes of delivery and associated risks: [] special requests: [] Specific Issue/Plans Covid status: declined Flu vaccine: declined Tdap vaccine: Rhogam: na LARC form signed: yes Problem list reviewed and updated with the most current plan of care details and appropriate orders placed. Relevant counseling for the gestational age provided. Continue routine care and follow up unless otherwise noted in visit notes/problem list details Initial Weight: 112 lb Date -???-???-???-???-???- ???-???-???-???-???-? ??-???- EGA Weight BP Urine Prot -???-???-???-???-???- ???-???-???-???-???-? ??-???- Glucose FHR FuHt Pres Dilation -???-???-???-???-???- ???-???-???-???-???-? ??-???- Effaced St Visit Note 06/10/23 -???-???-???-???-???- ???-???-???-???-???-? ??-???- 8w 6d 112 lb 8 oz (+8 oz) 106/72 -???-???-???-???-???- ???-???-???-???-???-? ??-???- 168 -???-???-???-???-???- ???-???-???-???-???-? ??-???- LC- no vb/cr amping. 1st trimester US on 06/03 CRL con with LMP. CLARITA 01/14/2024. accepts nipt. 07/06/23 -???-???-???-???-???- ???-???-???-???-???-? ??-???- 12w 4d 116 lb 4 oz (+4 lb 4 oz) 103/72 Negative -???-???-???-???-???- ???-???-???-???-???-? ??-???- Negative 160 -???-???-???-???-???- ???-???-???-???-???-? ??-???- SM- no vb cr amping 08/01/23 -???-???-???-???-???- ???-???-???-???-???-? ??-???- 16w 2d 117 lb 6 oz (+5 lb 6 oz) 113/68 Negative -???-???-???-???-???- ???-???-???-???-???-? ??-???- Negative 155 -???-???-???-???-???- ???-???-???-???-???-? ??-???- LC- no vb/cr amping. mfm anatomy ordered. afp discussed and desired. order placed. 08/31/23 -???-???-???-???-???- ???-???-???-???-???-? ??-???- 20w 4d 121 lb 4 oz (+9 lb 4 oz) 116/80 Negative -???-???-???-???-???- ???-???-???-???-???-? ??-???- Negative 155 -???-???-???-???-???- ???-???-???-???-???-? 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 LC-no vb/cramping. anatomy tomorro w. 09/27/23 -???-???-???-???-???- ???-???-? (more content not included)... Normal [facility] Echo Completeon 11-30-2023 Echo Complete [facility] [address] [place] [address] Echo Complete 11/30/23 1405 MR#: [id number] Acct: [id number] Name: MYLENE YATES Rep #: [id number] : 2000 23 From: Bryan Toscano MD Attending Dr: Dr. Bryan Toscano MD Status: JOVITA PENA Ordering Dr: Bryan Toscano MD Date: 11/30/23 Location: [facility] Sex: F C Admitted: Reason For Study: HYPOTENSION Procedure This was a 2D Doppler, Color Flow transthoracic echocardiogram. Exam performed in department. Left Ventricle Normal LV size. Left ventricular systolic function is normal. The estimated ejection fraction is 60 %. Normal diastology for age. No regional wall motion abnormalities noted. Right Ventricle Normal RV size. Normal systolic function. Atria Normal left atrium. Normal right atrium. Mitral Valve Normal mitral valve. Tricuspid Valve Normal tricuspid valve. Aortic Valve Trisinus/trileaflet aortic valve. Pulmonic Valve Normal pulmonic valve. Great Vessels Normal aortic root. The pulmonary artery is normal size. Normal inferior vena cava. Pericardium/Pleural No pericardial effusion. MMode/2D Measurements Calculations LVIDd: 4.4 cm IVSd: 0.57 cm Ao root diam: 2.6 cm LVIDs: 3.2 cm LVPWd: 0.71 cm LA dimension: 2.6 cm RVDd: 2.9 cm FS: 27.1 % LAV(MOD-bp): 28.8 ml LVAd ap4: 27.5 cm2 LVAd ap2: 24.3 cm2 LAV(MOD-bp) Indexed: 17.9 ml/m2 LVLd ap4: 7.5 cm LVLd ap2: 7.1 cm LAV(MOD-sp2): 30.0 ml EDV(MOD-sp4): 84.4 ml EDV(MOD-sp2): 69.1 ml LAV(MOD-sp4): 25.2 ml EDV(sp4-el): 85.5 ml EDV(sp2-el): 70.8 ml LVAs ap4: 15.7 cm2 LVAs ap2: 13.6 cm2 LVLs ap4: 6.2 cm LVLs ap2: 6.2 cm ESV(MOD-sp4): 35.9 ml ESV(MOD-sp2): 25.7 ml ESV(sp4-el): 33.9 ml ESV(sp2-el): 25.4 ml EF(MOD-sp4): 57.5 % EF(MOD-sp2): 62.8 % EF(sp4-el): 60.4 % SV(MOD-sp4): 48.5 ml SV(MOD-sp2): 43.3 ml SV(sp4-el): 51.6 ml TAPSE: 2.3 cm LA A4 area: 11.8 cm2 RA A4 area: 9.1 cm2 Time Measurements MV dec time: 0.21 sec Doppler Measurements Calculations MV E max ayesha: 73.3 cm/sec Lat Peak E' Ayesha: 15.1 cm/sec Med Peak E' Ayesha: 13.9 cm/sec MV A max ayesha: 50.4 cm/sec E/E' lat: 4.8 E/E' med: 5.3 MV E/A: 1.5 MV V2 max: 94.1 cm/sec MV P1/2t max yaesha: 96.4 cm/sec Ao V2 max: 145.4 cm/sec MV max P.5 mmHg MV P1/2t: 67.2 msec Ao max P.5 mmHg MV V2 mean: 64.1 cm/sec MV dec slope: 419.9 cm/sec2 Ao V2 mean: 101.0 cm/sec MV mean P.8 mmHg Ao mean P.6 mmHg MV V2 VTI: 19.3 cm MVA(P1/2t): 3.3 cm2 Ao V2 VTI: 27.8 cm AV (velocity ratio): 0.70 LV V1 max: 101.0 cm/sec PA V2 max: 92.5 cm/sec LV V1 max P.1 mmHg PA V2 mean: 64.9 cm/sec LV V1 mean P.3 mmHg LV V1 mean: 71.6 cm/sec LV V1 VTI: 19.5 cm ECHO/Echo Complete Interpretation Summary Normal LV size. Left ventricular systolic function is normal. The estimated ejection fraction is 60 %. Structurally normal valves. Ordering Physician: Bryan Toscano Referring Physician: Veena Vizcaino Performed By: Oralia De Paz, BELLA, RVT 11/30/231754 Date Bryan Toscano MD CC: Dr. Bryan Toscano MD; KERRY Mcgregor Date Dictated: 11/30/23 1405 Date Transcribed: 11/30/231754 Farebox Repairer: Signed Normal [facility] 12 Lead EKG performed by [facility] on 11-25-2023 12 Lead EKG performed by [address] [address] 12 Lead EKG performed by [facility] 11/25/23 1453 MR#: [id number] Acct: [id number] Name: MYLENE YATES Rep #: [id number] : 2000 23 From: Bryan Toscano MD Attending Dr: Dr. Bryan Toscano MD Status: DEP A MB Ordering Dr: Bryan Toscano MD Date: 11/25/23 Location: [facility] Sex: F C Admitted: [facility]/12 Lead EKG performed by [facility] ECG Report Interpretation -----Sinus Tachycardia -Short MN syndrome Devan = 84-Nonspecific ST depression -Abnormal but nondiagnostic for this age. ABNORMAL Electronically signed on 12/01/2023 at 12:50 by Bryan Toscano Software Version [id number] 12/01/23 1347 Date Bryan Toscano MD CC: KERRY Mcgregor Date Dictated: 11/25/23 145 Date Transcribed: 11/25/231452 Farebox Repairer: [place] Signed Normal [facility] Cardiology Visit Reporton Cardiology Visit Report [facility] [address] [place] [address]. [address] [place] [address] OFFICE VISIT Date of Service: 11/25/23 MR#: [id number] Acct: [id number] Name: MYLENE YATES Rep #: [id number] : 2000 Provider: Dr. Bryan Toscano MD Age/Sex: 23/F Location: [facility] Status: Signed HPI HPI History of Present Illness Details: This is a pleasant 23-year-old lady who presents for evaluation of transient dizziness. She says that this has been going on for a few weeks. Sometimes her blood pressure she thinks gets quite low and her heart rate also goes up. She had previously been on antidepressant but has not taken this for a while. She tries as much as possible to keep up with his fluids. And she has not had any gino syncopal episodes. She denies any chest pain and has had occasional palpitations. Her physical exam here today is unremarkable her electrocardiogram does demonstrate sinus tachycardia with a rate of 149 bpm. The previous EKG performed in October demonstrated sinus rhythm with a rate of 87 bpm. Intake Vital Signs 11/02/23 13:46 11/11/23 13:06 11/25/23 14:53 Height 5 ft 2 in 5 ft 2 in 5 ft 2 in Weight: 133 lb 9 oz BMI 24.4 BP 103/73 Blood Pressure Location Lt brachial Position Sitting Respiration 16 Pulse 98 Pulse Source Monitor Intake Visit Reasons: DIZZINESS/HYPOTENSION (VANDE VELDE) Theology Professor Required: No Accompanied by: Is patient in pain?: No Allergies No Known Allergies Allergy (Verified 11/25/23 14:56) Medications multivitamin no.47-iron fum 27 mg-folate no.1 1 mg-dha 300 mg capsule (PNV-DHA) 1 cap PO DAILY 06/10/23 [History Confirmed 11/17/23] PFSH Medical History Dizziness Hypotension Vaginal delivery Surgical History Hx of tonsillectomy Family History Grandmother Hypertension Breast cancer Social History adopted: No household members: spouse housing: house current occupational status: employed current occupation: [employer] current occupational exposures/hazards: No pets and animals: Yes pets and animals: dog(s) history of recent travel: No sexually active: Yes Smoking Status: Never smoker alcohol intake: current details: socially substance use type: does not use caffeine: Yes seatbelt use: always do you feel safe at home: Yes 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[employer], 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 ROS Const Const: Positive for headache(s); Negative for fatigue, weakness, daytime sleepiness or difficulty sleeping ENT ENT: Positive for headache(s); Negative for dizziness or Nosebleed/epistaxis Cardio Chest Pain: No Palpitations: No Edema: None Resp Respiratory: Positive for SOB with activity (when BP drops); Negative for SOB at rest, SOB orthopnea SOB lying down or Cough GI GI: Negative nausea, vomiting or heartburn Neuro Neuro: Positive for lightheadedness (when BP drops) and headache(s); Negative for dizziness, near syncope or weakness Endo Endo: Negative for fatigue Cardiology Exam Const Appearance: cooperative, healthy appearing, no acute distress, well developed and well groomed Nutritional Appearance: average body habitus and well nourished Orientation: alert, awake and oriented x3 Head Head: normal to inspection, normocephalic and atraumatic Ears: hearing grossly normal bilaterally and external ears normal Nose: external nose normal, nares normal, nasal mucous membranes and turbinates normal, septum normal and no nasal discharge Face and Sinus: face symmetric Mouth: oral mucosae normal, tongue normal, oropharynx normal and moist mucous membranes Teeth and gingiva: dentition normal Throat: posterior oropharynx normal, tonsils normal and uvula midline Eyes General: appearance normal, both eyes and all related structures Eyelids: eyelids normal Conjunctivae: conjunctivae normal Pupils: PERRL, normal by confrontation and accommodation normal EOM: EOM intact bilaterally Neck Neck: normal visual inspection, trachea midline and no JVD JVD: +5 Carotids: normal carotid upstroke and bounding pulses Chest Chest inspection: normal inspection of the chest, symmetric chest movement and normal respiratory effort Auscultation: Bilateral: Clear to Auscultation Cardio Palpation: normal PMI Rate: regular rate Rhythm: regular rhythm Heart sounds: S1 normal, S2 normal and normal, physiologic split S2; Negative rub, gallop or murmur GI GI: normal to inspection, soft, no hepatosplenomegaly and bowel sounds present Neuro General: patient alert, patient awake, patient oriented x3, gait normal, (more content not included)... Normal [facility] Laboratory - Chemistry and C hemistry - challengeon 11-11-2023 Glucose Ql (U) Negative [facility] Laboratory - Urinalysison Protein Ql (U) Negative [facility] City Planner Office Visit Reporton 11-11-2023 City Planner Office Visit Report [facility] [address] [place] [address] OFFICE VISIT Date of Service: 11/11/23 MR#: [id number] Acct: [id number] Name: MYLENE YATES Rep #: [id number] : 2000 Provider: Dr. Riddhi lindquist MD Age/Sex: 23/F Location: [facility] Status: Signed Intake Vital Signs 11/02/23 13:46 11/08/23 12:28 11/11/23 13:05 11/11/23 13:06 Height 5 ft 2 in 5 ft 2 in 5 ft 2 in 5 ft 2 in Weight: 133 lb 2 oz BMI 24.3 BP 106/72 Intake Visit Reasons: 30 wk Theology Professor Required: No Is patient in pain?: No Allergies No Known Allergies Allergy (Verified 11/11/23 13:04) Medications multivitamin no.47-iron fum 27 mg-folate no.1 1 mg-dha 300 mg capsule (PNV-DHA) 1 cap PO DAILY 06/10/23 [History Confirmed 11/11/23] Last Menstrual Period: 04/09/23 Zika: Zika virus screening: Negative : No PFSH PFSH Medical History Vaginal delivery Surgical History Hx of tonsillectomy Family History Grandmother Hypertension Breast cancer Social History adopted: No household members: spouse housing: house current occupational status: employed current occupation: [employer] current occupational exposures/hazards: No pets and animals: Yes pets and animals: dog(s) history of recent travel: No sexually active: Yes Smoking Status: Never smoker alcohol intake: current details: socially substance use type: does not use caffeine: Yes seatbelt use: always do you feel safe at home: Yes 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 Date Name GA/Weeks Outcome Route Bth Weight Infant Gen Labor Lgth Anesthesia Del Locatn Provider FOB 07/18/20 Hugo 39 live - full term 7lb 13 oz Male epidural soto Spang[place] HPI 30 wk Details: MYLENE YATES is a 23 year old who presents for routine OB visit. OB Visit CLARITA Calculator Estimated Delivery Date Method Current WG Current Estimate 01/14/24 LMP (Certain) 30w 6d Other Estimates 01/15/24 Ultrasound #1 30w 5d Expected Delivery Route/Plan Labor Preferences- CB/BF classes: no labor support person: Aníbal labor intervention preferences: [] pain management options preferred: epidural if requested cut cord/dad catch: yes : yes PP control planned: discussed discussed possible routes of delivery and associated risks: [] special requests: [] Specific Issue/Plans Covid status: declined Flu vaccine: declined Tdap vaccine: Rhogam: na LARC form signed: yes Problem list reviewed and updated with the most current plan of care details and appropriate orders placed. Relevant counseling for the gestational age provided. Continue routine care and follow up unless otherwise noted in visit notes/problem list details Initial Weight: 112 lb Date -???-???-???-???-???- ???-???-???-???-???-? ??-???- EGA Weight BP Urine Prot -???-???-???-???-???- ???-???-???-???-???-? ??-???- Glucose FHR FuHt Pres Dilation -???-???-???-???-???- ???-???-???-???-???-? ??-???- Effaced St Visit Note 06/10/23 -???-???-???-???-???- ???-???-???-???-???-? ??-???- 8w 6d 112 lb 8 oz (+8 oz) 106/72 -???-???-???-???-???- ???-???-???-???-???-? ??-???- 168 -???-???-???-???-???- ???-???-???-???-???-? ??-???- LC- no vb/cr amping. 1st trimester US on 06/03 CRL con with LMP. CLARITA 01/14/2024. accepts nipt. 07/06/23 -???-???-???-???-???- ???-???-???-???-???-? ??-???- 12w 4d 116 lb 4 oz (+4 lb 4 oz) 103/72 Negative -???-???-???-???-???- ???-???-???-???-???-? ??-???- Negative 160 -???-???-???-???-???- ???-???-???-???-???-? ??-???- SM- no vb cr amping 08/01/23 -???-???-???-???-???- ???-???-???-???-???-? ??-???- 16w 2d 117 lb 6 oz (+5 lb 6 oz) 113/68 Negative -???-???-???-???-???- ???-???-???-???-???-? ??-???- Negative 155 -???-???-???-???-???- ???-???-???-???-???-? ??-???- LC- no vb/cr amping. mfm anatomy ordered. afp discussed and desired. order placed. 08/31/23 -???-???-???-???-???- ???-???-???-???-???-? ??-???- 20w 4d 121 lb 4 oz (+9 lb 4 oz) 116/80 Negative -???-???-???-???-???- ???-???-???-???-???-? ??-???- Negative 155 -???-???-???-???-???- ???-???-???-???-???-? 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 LC-no vb/cramping. anatomy tomorro w. 09/27/23 -???-???-???-???-???- ???-???-???-???-???-? ??-???- 24 (more content not included)... Normal [facility] OB Triage Progress Noteon OB Triage Progress Note [facility] Medical Records Department [address] [place] [address] OB Triage Progress Note 11/10/23 1310 MR#: [id number] Acct: [id number] Name: MYLENE YATES Rep #: [id number] : 2000 23 From: Riddhi Villalobos MD PCP: KERRY Mcgregor Status:DEP CLI Y DOS: Location: [facility]OUT Progress Notes Date of Service: 11/08/23 Progress Note: Patient presents for triage evaluation secondary to hypotension FHT: 140 Moderate variability reactive no decelerations category I tracing [place]od[place]: no regular Contractions Assessment and plan: hypotension Reactive NST, labs done fluids given reassuring maternal and status patient discharged to home to follow-up as scheduled. See problem list details for additional plan information. Laboratory Studies: Laboratory Tests 11/08/23 Range/Units 14:00 WBC 9.7 (4.4-11.0) K/mm3 RBC 3.52 L (4.2-5.4) M/mm3 Hgb 11.4 L (12.0-15.0) g/dL Hct 33.7 L (37-47) % MCV 95.7 (81-99) fL MCH 32.4 H (27.0-32.0) pg MCHC 33.8 (32-36) g/dL RDW Std Deviation 50.5 H (35.1-43.9) fl RDW Coeff of Roque 14.5 (11.6-14.6) % Plt Count 173 (150-450) K/mm3 MPV 11.4 (6.2-12.0) fl Sodium 140 (136-145) mmol/L Potassium 3.8 (3.5-5.1) mmol/L Chloride 109 H (98-107) mmol/L Carbon Dioxide 22.0 (21.0-32.0) mmol/L Anion Gap 9 (5-15) BUN 5 L (7-18) mg/dL Creatinine 0.51 L (0.55-1.02) mg/dL Estim Creat Clear Calc 134.53 ml/min Est GFR (MDRD) Af Amer 190 (>60) mL/min Est GFR (MDRD) Non-Af 157 (>60) mL/min BUN/Creatinine Ratio 9.8 L (10-20) RATIO Glucose 76 (74-106) mg/dL Calcium 8.9 (8.5-10.1) mg/dL Total Bilirubin 0.80 (0.20-1.00) mg/dL AST 8 L (15-37) U/L ALT 12 L (13-56) U/L Alkaline Phosphatase 61 (45-117) U/L Total Protein 5.9 L (6.4-8.2) g/dL Albumin 2.9 L (3.2-5.0) g/dL Globulin 3.0 (2.2-4.2) g/dL Albumin/Globulin Ratio 1.0 (0.9-2.4) RATIO Urine Color Yellow (Yellow) Urine Clarity Sl. Cloudy (Clear) Urine pH 8.0 (5.0 - 8.0) Ur Specific Rippey 1.015 (1.002-1.030) Urine Protein Negative (Negative) mg/dl Urine Glucose (UA) Normal (Normal) mg/dl Urine Ketones Negative (Negative) mg/dl Urine Occult Blood Negative (Negative) /ul Urine Nitrite Negative (Negative) Urine Bilirubin Negative (Negative) mg/dL Urine Urobilinogen 8 H (Normal) mg/dl Ur Leukocyte Esterase 100 H (Negative) /ul Urine RBC 0 SEEN (0-5) /hpf Urine WBC 0-5 SEEN (0-5) /hpf Ur Squamous Epith Cells 0-5 SEEN (5-10) /hpf Urine Bacteria 1+ (None Seen) /hpf Urine Mucus 0 SEEN ( Charges/Coding Procedures Urinary/Genital 52xxx-59xxx: [id number] non-stress test Interp 11/10/23 1311 Date Riddhi Villalobos MD Cosigner Signature (if applicable): Date CC: Dr. Riddhi Villalobos MD; KERRY Mcgregor Signed Normal [facility] Urine Cultureon 11-09-2023 URC Culture exhibits no growth. Normal [facility] Comment on above: Performed By: #### M 100.2200, L7000.1800 #### [facility] Laboratory [address] [facility] [place], [address] 12 Lead EKG with Rhythm Stri nandini 11-08-2023 12 Lead EKG with Rhythm Strip [facility] Cardiovascular Services [address] [place] [address] 12 Lead EKG with Rhythm Strip 11/08/23 1410 MR#: [id number] Acct: [id number] Name: MYLENE YATES Rep #: [id number] : 2000 23 From: Bryan Toscano MD Attending Dr: Dr. Riddhi Villalobos MD Status: [facility] Ordering Dr: Riddhi Villalobos MD Date: 11/08/23 Location: [facility] Sex: F C Admitted: Test Reason : DIZZINESS Blood Pressure : / mmHG Vent. Rate : 087 BPM Atrial Rate : 087 BPM P-R Int : 114 ms QRS Dur : 064 ms QT Int : 340 ms P-R-T Axes : -09 033 016 degrees QTc Int : 409 ms Normal sinus rhythm Normal ECG No previous ECGs available Confirmed by BRYAN TOSCANO MD ([id number]), online editor NICHOLAS GAITAN ([id number]) on 11/09/2023 1:25:29 PM Referred By: Riddhi Villalobos Confirmed By:BRYAN TOSCANO MD 11/09/23 1325 Date Bryan Toscano MD CC: Dr. Riddhi Villalobos MD; KERRY Mcgregor Signed Normal [facility] Automated blood erythrocyte count (number/volume)Ordered By: Riddhi Villalobos on 11-08-2023 RBC (Bld) [#/Vol] 3.52 10*6/uL Low 4.2-5.4 [facility] Comment on above: Performed By: #### M 100.2200, L7000.1800 #### [facility] [address] [place], [address] Automated blood hematocrit ( percentage)Ordered By: Riddhi Villalobos on 11-08-2023 Hematocrit (Bld) [Volume fraction] 33.7 % Low 37-47 [facility] Comment on above: Performed By: #### M 100.2200, L7000.1800 #### [facility] [address] [place], [address] Basophil percentageOrdered B y: Riddhi Villalobos on 11-08-2023 Bilirubin [Mass/Vol] 0.80 mg/dL Normal 0.20-1.00 [facility] Comment on above: For patients on eltr ombopag therapy, use of Dimension Clune TBIL is not recommended. Result Comment: For patients on eltrombopag therapy, use of Dimension Clune TBIL is not recommended. Performed By: #### M 100.2200, L7000.1800 #### [facility] [address] [place], [address] Chloride [Moles/Vol] 109 mmol/L High 98-107 [facility] Comment on above: Performed By: #### M 100.2200, L7000.1800 #### [facility] [address] [place], [address] Glucose [Mass/Vol] 76 mg/dL Normal 74-106 [facility] Comment on above: Performed By: #### M 100.2200, L7000.1800 #### [facility] [address] [place], [address] Potassium [Moles/Vol] 3.8 mmol/L Normal 3.5-5.1 [facility] Comment on above: Performed By: #### M 100.2200, L7000.1800 #### [facility] [address] [place], [address] Sodium [Moles/Vol] 140 mmol/L Normal 136-145 [facility] Comment on above: Performed By: #### M 100.2200, L7000.1800 #### [facility] [address] [place], [address] Hemoglobin (Bld) [Mass/Vol] 11.4 g/dL Low 12.0-15.0 [facility] Comment on above: Performed By: #### M 100.2200, L7000.1800 #### [facility] [address] [place], [address] WBC (Bld) [#/Vol] 9.7 10*3/uL Normal 4.4-11.0 [facility] Comment on above: Performed By: #### M 100.2200, L7000.1800 #### [facility] [address] [place], [address] Basophil percentage 0-5 SEEN /hpf 0-5 [facility] Protein [Mass/Vol] 5.9 g/dL 6.4-8.2 [facility] Bilirubin Test strip Ql (U)O rdered By: Riddhi Villalobos on 11-08-2023 Bilirubin Ql (U) Negative Negative [facility] CBC-Complete Blood Cnt No Di ffOrdered By: Riddhi Villalobos on 11-08-2023 MCH (RBC) [Entitic mass] 32.4 pg High 27.0-32.0 [facility] Comment on above: Performed By: #### M 100.2200, L7000.1800 #### [facility] [address] [place], [address] MCHC (RBC) [Mass/Vol] 33.8 g/dL Normal 32-36 [facility] Comment on above: Performed By: #### M 100.2200, L7000.1800 #### [facility] [address] [place], [address] Platelet mean volume (Bld) [Entitic vol] 11.4 fL Normal 6.2-12.0 [facility] Comment on above: Performed By: #### M 100.2200, L7000.1800 #### [facility] [address] [place], [address] Platelets (Bld) [#/Vol] 173 10*3/uL Normal 150-450 [facility] Comment on above: Performed By: #### M 100.2200, L7000.1800 #### [facility] [address] [place], [address] CBC-Complete Blood Cnt No Di ffon 11-08-2023 RDW SD 50.5 fl High 35.1-43.9 [facility] Comment on above: Performed By: #### M 100.2200, L7000.1800 #### [facility] [address] [place], [address] Comprehensive Metabolic Prof ilon 11-08-2023 Albumin [Mass/Vol] 2.9 g/dL Low 3.2-5.0 [facility] Comment on above: Performed By: #### M 100.2200, L7000.1800 #### [facility] [address] [place], [address] ALK P 61 U/L Normal 45-117 [facility] Comment on above: Performed By: #### M 100.2200, L7000.1800 #### [facility] [address] [place], [address] AST [Catalytic activity/Vol] 8 U/L Low 15-37 [facility] Comment on above: Performed By: #### M 100.2200, L7000.1800 #### [facility] [address] [place], [address] BUN/CRE 9.8 RATIO Low 10-20 [facility] Comment on above: Performed By: #### M 100.2200, L7000.1800 #### [facility] [address] [place], [address] CA,Total 8.9 mg/dL Normal 8.5-10.1 [facility] Comment on above: Performed By: #### M 100.2200, L7000.1800 #### [facility] [address] [place], [address] ECRCL 134.53 ml/min Normal [facility] Comment on above: Performed By: #### M 100.2200, L7000.1800 #### [facility] [address] [place], [address] EST GFR - AA 190 mL/min Normal >60 [facility] Comment on above: Result Comment: Afri can Latvian GFR Calc Performed By: #### M 100.2200, L7000.1800 #### [facility] [address] [place], [address] GAP 9 Normal 5-15 [facility] Comment on above: Performed By: #### M 100.2200, L7000.1800 #### [facility] [address] [place], [address] GFR/1.73 sq M.predicted among non-blacks MDRD (S/P/Bld) [Vol rate/Area] 157 mL/min/{1.73_m2} Normal >60 [facility] Comment on above: Result Comment: Non- GFR Calc Performed By: #### M 100.2200, L7000.1800 #### [facility] [address] [place], [address] T PROT 5.9 g/dL Low 6.4-8.2 [facility] Comment on above: Performed By: #### M 100.2200, L7000.1800 #### [facility] [address] [place], [address] Comprehensive Metabolic Prof ilOrdered By: Riddhi Villalobos on 11-08-2023 Albumin/Globulin [Mass ratio] 1.0 {ratio} Normal 0.9-2.4 [facility] Comment on above: Performed By: #### M 100.2200, L7000.1800 #### [facility] [address] [place], [address] ALT [Catalytic activity/Vol] 12 U/L Low 13-56 [facility] Comment on above: Performed By: #### M 100.2200, L7000.1800 #### [facility] [address] [place], [address] CO2 [Moles/Vol] 22.0 mmol/L Normal 21.0-32.0 [facility] Comment on above: Performed By: #### M 100.2200, L7000.1800 #### [facility] [address] [place], [address] Globulin (S) [Mass/Vol] 3.0 g/dL Normal 2.2-4.2 [facility] Comment on above: Performed By: #### M 100.2200, L7000.1800 #### [facility] [address] [place], [address] Culture, urineOrdered By: Ok Villalobos on 03-26-2024 Bacteria identified Cx Nom (U) Culture exhibits no growth. [facility] Determination of erythrocyte mean corpuscular volume (MCV)Ordered By: Riddhi Villalobos on 11-08-2023 MCV (RBC) [Entitic vol] 95.7 fL Normal 81-99 [facility] Comment on above: Performed By: #### M 100.2200, L7000.1800 #### [facility] [address] [place], [address] Erythrocyte distribution wid th ratioOrdered By: Riddhi Villalobos on 11-08-2023 Erythrocyte distribution width (RBC) [Ratio] 14.5 % Normal 11.6-14.6 [facility] Comment on above: Performed By: #### M 100.2200, L7000.1800 #### [facility] [address] [place], [address] Erythrocyte distribution wid th standard deviationOrdered By: Riddhi Villalobos on 11-08-2023 Erythrocyte distribution width (RBC) [Entitic vol] 50.5 fL 35.1-43.9 [facility] Ketones Test strip Ql (U)Ord ered By: Riddhi Villalobos on 11-08-2023 Ketones Ql (U) Negative Negative [facility] - Chemistry and C hemistry - challengeOrdered By: Riddhi Villalobos on 11-08-2023 ALP [Catalytic activity/Vol] 61 U/L 45-117 [facility] Urea nitrogen/Creatinine [Mass ratio] 9.8 mg/mg 10-20 [facility] Mucus LM Ql (Urine sed)Order ed By: Riddhi Villalobos on 11-08-2023 Mucus Ql (Urine sed) 0 SEEN /hpf [facility] Nitrite Test strip Ql (U)Ord ered By: Riddhi Villalobos on 11-08-2023 Nitrite Ql (U) Negative Negative [facility] No Panel InformationOrdered By: Riddhi Villalobos on 11-08-2023 Estimated Creatinine Clearance Calc 134.53 ml/min [facility] Estimated GFR (MDRD) Amer 190 mL/min >60 [facility] Comment on above: GFR Calc Estimated GFR (MDRD) Non-Af Amer 157 mL/min >60 [facility] Comment on above: Non- GFR Calc Urine RBC 0 SEEN /hpf 0-5 [facility] Protein Test strip Ql (U)Ord ered By: Riddhi Villalobos on 11-08-2023 Protein Ql (U) Negative Negative [facility] Serum or plasma calcium teresa urement (mass/volume)Ordered By: Riddhi Villalobos on 11-08-2023 Calcium [Mass/Vol] 8.9 mg/dL 8.5-10.1 [facility] Serum or plasma creatinine m easurement (mass/volume)Ordered By: Riddhi Villalobos on 11-08-2023 Creatinine [Mass/Vol] 0.51 mg/dL Low 0.55-1.02 [facility] Comment on above: The validity of the calculated GFR & GFRAA in patients over 70 years has not been determined. Clinical correlation is essential. Result Comment: The validity of the calculated GFR GFRAA in patients over 70 years has not been determined. Clinical correlation is essential. Performed By: #### M 100.2200, L7000.1800 #### [facility] [address] [place], [place], [id number] Serum or plasma urea nitroge n measurement (mass/volume)Ordered By: Riddhi Villalobos on 11-08-2023 Urea nitrogen [Mass/Vol] 5 mg/dL Low 7-18 [facility] Comment on above: Performed By: #### M 100.2200, L7000.1800 #### [facility] [address] [place], [address] Squamous epithelial cells de tection in urine sediment by light microscopyOrdered By: Riddhi Villalobos on 11-08-2023 Epithelial cells.squamous LM Ql (Urine sed) 0-5 SEEN /hpf 5-10 [facility] Thin prep Papanicolaou smear with manual screeningOrdered By: Riddhi Villalobos on 11-08-2023 Thin prep Papanicolaou smear with manual screening 2.9 g/dL 3.2-5.0 [facility] Thin prep Papanicolaou smear with manual screening 8 U/L 15-37 [facility] Thin prep Papanicolaou smear with manual screening 9 5-15 [facility] Urinalysis, Completeon 11-07 BACTERIA 1+ /hpf Normal None Seen [facility] Comment on above: Order Comment: MASSIEL CTOR TO SPECIFY Performed By: #### M 100.2200, L7000.1800 #### [facility] [address] [place], [address] EPI,SQUAMOUS 0-5 SEEN Normal 5-10 [facility] Comment on above: Order Comment: MASSIEL CTOR TO SPECIFY Performed By: #### M 100.2200, L7000.1800 #### [facility] [address] [place], [address] WBC 0-5 SEEN Normal 0-5 [facility] Comment on above: Order Comment: MASSIEL CTOR TO SPECIFY Performed By: #### M 100.2200, L7000.1800 #### [facility] [address] [place], [address] Mucus Ql (Urine sed) 0 SEEN Normal [facility] Comment on above: Order Comment: MASSIEL CTOR TO SPECIFY Performed By: #### M 100.2200, L7000.1800 #### [facility] [address] [place], [address] RBC 0 SEEN Normal 0-5 [facility] Comment on above: Order Comment: MASSIEL CTOR TO SPECIFY Performed By: #### M 100.2200, L7000.1800 #### [facility] [address] [place], [address] Urine blood detectionOrdered By: Riddhi Villalobos on 11-08-2023 RBC Ql (U) Negative Negative [facility] Urine clarityOrdered By: Grupo Villalobos on 11-08-2023 Clarity (U) Sl. Cloudy Clear [facility] Urine color determinationOrd ered By: Riddhi Villalobos on 11-08-2023 Color (U) Yellow Yellow [facility] Urine glucose detectionOrder ed By: Riddhi Villalobos on 11-08-2023 Glucose Ql (U) Normal mg/dl Normal [facility] Urine leukocyte esterase det ection by dipstickOrdered By: Riddhi Villalobos on 11-08-2023 Leukocyte esterase Test strip Ql (U) 100 /ul Negative [facility] Urine pHOrdered By: Riddhi santiago on 11-08-2023 pH (U) 8.0 [pH] 5.0 - 8.0 [facility] Urine sediment bacteria coun t by microscopy (number/high power field)Ordered By: Riddhi Villalobos on 11-08-2023 Bacteria LM.HPF (Urine sed) [#/Area] 1 /[HPF] None Seen [facility] Urine specific gravity measu rementOrdered By: Riddhi Villalobos on 11-08-2023 Specific gravity (U) [Rel density] 1.015 1.002-1.030 [facility] Urine urobilinogen measureme ntOrdered By: Riddhi Villalobos on 11-08-2023 Urobilinogen Ql (U) 8 mg/dl Normal [facility] Absolute lymphocyte countOrd ered By: Shelly Silva on 11-02-2023 Lymphocytes Auto (Unsp spec) [#/Vol] 1.39 10*3/uL 0.83-4.51 [facility] Automated lymphocyte count a s percentage of total leukocytesOrdered By: Shelly Silva on 11-02-2023 Lymphocytes/100 WBC Auto (Unsp spec) 13.7 % 19-41 [facility] Basophil percentageOrdered B y: Shelly Silva on 11-02-2023 Basophils/100 WBC (Bld) 0.2 % 0-1 [facility] Bilirubin [Mass/Vol] 0.90 mg/dL 0.20-1.00 [facility] Comment on above: For patients on eltr ombopag therapy, use of Dimension Clune TBIL is not recommended. Chloride [Moles/Vol] 110 mmol/L 98-107 [facility] Eosinophils/100 WBC (Bld) 0.6 % 0-5 [facility] Glucose [Mass/Vol] 101 mg/dL 74-106 [facility] Comment on above: Fasting Glucose resu lt from 100 to 125 mg/dL suggests IMPAIRED HOMEOSTASIS per A.D.A. criteria. Hemoglobin (Bld) [Mass/Vol] 11.5 g/dL 12.0-15.0 [facility] Monocytes/100 WBC (Bld) 6.1 % 0-10 [facility] Neutrophils (Bld) [#/Vol] 8.0 10*3/uL 2.0-7.7 [facility] Neutrophils/100 WBC (Bld) 78.8 % 47-70 [facility] Potassium [Moles/Vol] 3.6 mmol/L 3.5-5.1 [facility] Protein [Mass/Vol] 6.2 g/dL 6.4-8.2 [facility] Sodium [Moles/Vol] 139 mmol/L 136-145 [facility] WBC (Bld) [#/Vol] 10.2 10*3/uL 4.4-11.0 [facility] CBC W/Diff, Automatedon 10-14 0-2023 Absolute Lymph 1.39 X10 3/uL Normal 0.83-4.51 [facility] Comment on above: Performed By: #### M 100.2200, L7000.1800 #### [facility] [address] [place], [address] Absolute Neut 8.0 X10 3/uL High 2.0-7.7 [facility] Comment on above: Performed By: #### M 100.2200, L7000.1800 #### [facility] [address] [place], [address] Basophils/100 WBC (Bld) 0.2 % Normal 0-1 [facility] Comment on above: Performed By: #### M 100.2200, L7000.1800 #### [facility] [address] [place], [address] Eosinophils/100 WBC (Bld) 0.6 % Normal 0-5 [facility] Comment on above: Performed By: #### M 100.2200, L7000.1800 #### [facility] [address] [place], [address] Erythrocyte distribution width (RBC) [Ratio] 14.5 % Normal 11.6-14.6 [facility] Comment on above: Performed By: #### M 100.2200, L7000.1800 #### [facility] [address] [place], [address] Hematocrit (Bld) [Volume fraction] 33.2 % Low 37-47 [facility] Comment on above: Performed By: #### M 100.2200, L7000.1800 #### [facility] [address] [place], [address] Hemoglobin (Bld) [Mass/Vol] 11.5 g/dL Low 12.0-15.0 [facility] Comment on above: Performed By: #### M 100.2200, L7000.1800 #### [facility] [address] [place], [address] IG% 0.600 Normal 0.0-0.9 [facility] Comment on above: Result Comment: IG% - Immature Granulocytes (promyelocytes, myelocytes and metamyelocytes) > 1% indicates that a LEFT SHIFT is Present. Performed By: #### M 100.2200, L7000.1800 #### [facility] [address] [place], [address] Lymphocytes/100 WBC (Bld) 13.7 % Low 19-41 [facility] Comment on above: Performed By: #### M 100.2200, L7000.1800 #### [facility] [address] [place], [address] MCH (RBC) [Entitic mass] 33.4 pg High 27.0-32.0 [facility] Comment on above: Performed By: #### M 100.2200, L7000.1800 #### [facility] [address] [place], [address] MCHC (RBC) [Mass/Vol] 34.6 g/dL Normal 32-36 [facility] Comment on above: Performed By: #### M 100.2200, L7000.1800 #### [facility] [address] [place], [address] MCV (RBC) [Entitic vol] 96.5 fL Normal 81-99 [facility] Comment on above: Performed By: #### M 100.2200, L7000.1800 #### [facility] [address] [place], [address] Monocytes/100 WBC (Bld) 6.1 % Normal 0-10 [facility] Comment on above: Performed By: #### M 100.2200, L7000.1800 #### [facility] [address] [place], [address] Neutrophils/100 WBC (Bld) 78.8 % High 47-70 [facility] Comment on above: Performed By: #### M 100.2200, L7000.1800 #### [facility] [address] [place], [address] Nucleated RBC (Bld) [#/Vol] 0 10*3/uL Normal 0-5 [facility] Comment on above: Performed By: #### M 100.2200, L7000.1800 #### [facility] [address] [place], [address] Platelet mean volume (Bld) [Entitic vol] 11.7 fL Normal 6.2-12.0 [facility] Comment on above: Performed By: #### M 100.2200, L7000.1800 #### [facility] [address] [place], [address] Platelets (Bld) [#/Vol] 183 10*3/uL Normal 150-450 [facility] Comment on above: Performed By: #### M 100.2200, L7000.1800 #### [facility] [address] [place], [address] RBC (Bld) [#/Vol] 3.44 10*6/uL Low 4.2-5.4 [facility] Comment on above: Performed By: #### M 100.2200, L7000.1800 #### [facility] [address] [place], [address] RDW SD 50.9 fl High 35.1-43.9 [facility] Comment on above: Performed By: #### M 100.2200, L7000.1800 #### [facility] [address] [place], [address] WBC (Bld) [#/Vol] 10.2 10*3/uL Normal 4.4-11.0 [facility] Comment on above: Performed By: #### M 100.2200, L7000.1800 #### [facility] [address] [place], [address] Comprehensive Metabolic Prof [facility] [place] 11-02-2023 Albumin [Mass/Vol] 3.0 g/dL Low 3.2-5.0 [facility] Comment on above: Performed By: #### M 100.2200, L7000.1800 #### [facility] [address] [place], [address] Albumin/Globulin [Mass ratio] 0.9 {ratio} Normal 0.9-2.4 [facility] Comment on above: Performed By: #### M 100.2200, L7000.1800 #### [facility] [address] [place], [address] ALK P 60 U/L Normal 45-117 [facility] Comment on above: Performed By: #### M 100.2200, L7000.1800 #### [facility] [address] [place], [address] ALT [Catalytic activity/Vol] 15 U/L Normal 13-56 [facility] Comment on above: Performed By: #### M 100.2200, L7000.1800 #### [facility] [address] [place], [address] AST [Catalytic activity/Vol] 14 U/L Low 15-37 [facility] Comment on above: Performed By: #### M 100.2200, L7000.1800 #### [facility] [address] [place], [address] Bilirubin [Mass/Vol] 0.90 mg/dL Normal 0.20-1.00 [facility] Comment on above: Result Comment: For patients on eltrombopag therapy, use of Dimension Clune TBIL is not recommended. Performed By: #### M 100.2200, L7000.1800 #### [facility] [address] [place], [address] BUN/CRE 10.6 RATIO Normal 10-20 [facility] Comment on above: Performed By: #### M 100.2200, L7000.1800 #### [facility] [address] [place], [address] CA,Total 8.8 mg/dL Normal 8.5-10.1 [facility] Comment on above: Performed By: #### M 100.2200, L7000.1800 #### [facility] [address] [place], [address] Chloride [Moles/Vol] 110 mmol/L High 98-107 [facility] Comment on above: Performed By: #### M 100.2200, L7000.1800 #### [facility] [address] [place], [address] CO2 [Moles/Vol] 24.0 mmol/L Normal 21.0-32.0 [facility] Comment on above: Performed By: #### M 100.2200, L7000.1800 #### [facility] [address] [place], [address] Creatinine [Mass/Vol] 0.47 mg/dL Low 0.55-1.02 [facility] Comment on above: Result Comment: The validity of the calculated GFR GFRAA in patients over 70 years has not been determined. Clinical correlation is essential. Performed By: #### M 100.2200, L7000.1800 #### [facility] [address] [place], [address] EST GFR - AA 208 mL/min Normal >60 [facility] Comment on above: Result Comment: Afri can Latvian GFR Calc Performed By: #### M 100.2200, L7000.1800 #### [facility] [address] [place], [address] GAP 5 Normal 5-15 [facility] Comment on above: Performed By: #### M 100.2200, L7000.1800 #### [facility] [address] [place], [address] GFR/1.73 sq M.predicted among non-blacks MDRD (S/P/Bld) [Vol rate/Area] 172 mL/min/{1.73_m2} Normal >60 [facility] Comment on above: Result Comment: Non- GFR Calc Performed By: #### M 100.2200, L7000.1800 #### [facility] [address] [place], [address] Globulin (S) [Mass/Vol] 3.2 g/dL Normal 2.2-4.2 [facility] Comment on above: Performed By: #### M 100.2200, L7000.1800 #### [facility] [address] [place], [address] Glucose [Mass/Vol] 101 mg/dL Normal 74-106 [facility] Comment on above: Result Comment: Fast ing Glucose result from 100 to 125 mg/dL suggests IMPAIRED HOMEOSTASIS per A.D.A. criteria. Performed By: #### M 100.2200, L7000.1800 #### [facility] [address] [place], [address] Potassium [Moles/Vol] 3.6 mmol/L Normal 3.5-5.1 [facility] Comment on above: Performed By: #### M 100.2200, L7000.1800 #### [facility] [address] [place], [address] Sodium [Moles/Vol] 139 mmol/L Normal 136-145 [facility] Comment on above: Performed By: #### M 100.2200, L7000.1800 #### [facility] [address] [place], [address] T PROT 6.2 g/dL Low 6.4-8.2 [facility] Comment on above: Performed By: #### M 100.2200, L7000.1800 #### [facility] [address] [place], [address] Urea nitrogen [Mass/Vol] 5 mg/dL Low 7-18 [facility] Comment on above: Performed By: #### M 100.2200, L7000.1800 #### [facility] [address] [place], [address] Determination of erythrocyte mean corpuscular volume (MCV)Ordered By: Shelly Silva on 11-02-2023 MCV (RBC) [Entitic vol] 96.5 fL 81-99 [facility] Erythrocyte distribution wid th ratioOrdered By: Shelly Silva on 11-02-2023 Erythrocyte distribution width (RBC) [Ratio] 14.5 % 11.6-14.6 [facility] Erythrocyte distribution wid th standard deviationOrdered By: Shelly Silva on 11-02-2023 Erythrocyte distribution width (RBC) [Entitic vol] 50.9 fL 35.1-43.9 [facility] Hematocrit Auto (Bld) [Volum e fraction]Ordered By: Shelly Silva on 11-02-2023 Hematocrit (Bld) [Volume fraction] 33.2 % 37-47 [facility] Immature granulocytes/100 WB C Auto (Bld)Ordered By: Shelly Silva on 11-02-2023 Immature granulocytes/100 WBC (Bld) 0.600 % 0.0-0.9 [facility] Comment on above: IG% - Immature Granu locytes (promyelocytes, myelocytes and metamyelocytes) > 1% indicates that a LEFT SHIFT is Present. Laboratory - Chemistry and C hemistry - challengeOrdered By: Shelly Silva on 11-02-2023 Albumin/Globulin [Mass ratio] 0.9 {ratio} 0.9-2.4 [facility] ALP [Catalytic activity/Vol] 60 U/L 45-117 [facility] ALT [Catalytic activity/Vol] 15 U/L 13-56 [facility] CO2 [Moles/Vol] 24.0 mmol/L 21.0-32.0 [facility] Globulin (S) [Mass/Vol] 3.2 g/dL 2.2-4.2 [facility] Urea nitrogen/Creatinine [Mass ratio] 10.6 mg/mg 10-20 [facility] - Chemistry and C hemistry - challengeon 11-02-2023 Glucose Ql (U) Negative [facility] - Hematology and Cell countsOrdered By: Shelly Silva on 11-02-2023 MCH (RBC) [Entitic mass] 33.4 pg 27.0-32.0 [facility] MCHC (RBC) [Mass/Vol] 34.6 g/dL 32-36 [facility] Nucleated RBC/100 WBC (Bld) [Ratio] 0 % 0-5 [facility] Platelet mean volume (Bld) [Entitic vol] 11.7 fL 6.2-12.0 [facility] Platelets (Bld) [#/Vol] 183 10*3/uL 150-450 [facility] - Urinalysison Protein Ql (U) Negative [facility] No Panel InformationOrdered By: Shelly Silva on 11-02-2023 Estimated GFR (MDRD) Amer 208 mL/min >60 [facility] Comment on above: GFR Calc Estimated GFR (MDRD) Non-Af Amer 172 mL/min >60 [facility] Comment on above: Non- GFR Calc City [facility] Office Visit Reporton 11-02-2023 City Planner Office Visit Report [facility] [address] [place] [address] OFFICE VISIT Date of Service: 11/02/23 MR#: [id number] Acct: [id number] Name: MYLENE YATES Rep #: [id number] : 2000 Provider: Dr. 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 Is patient in pain?: No Allergies No Known Allergies Allergy (Verified 11/02/23 13:51) Medications multivitamin no.47-iron fum 27 mg-folate no.1 1 mg-dha 300 mg capsule (PNV-DHA) cap PO 06/10/23 [History Confirmed 11/02/23] Last Menstrual Period: 04/09/23 Zika: Zika virus screening: Negative : No PFSH PFSH Medical History Vaginal delivery Surgical History Hx of tonsillectomy Family History Grandmother Hypertension Breast cancer Social History adopted: No household members: spouse housing: house current occupational status: employed current occupation: [employer] current occupational exposures/hazards: No pets and animals: Yes pets and animals: dog(s) history of recent travel: No sexually active: Yes Smoking Status: Never smoker alcohol intake: current details: socially substance use type: does not use caffeine: Yes seatbelt use: always do you feel safe at home: Yes 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 Date Name GA/Weeks Outcome Route Bth Weight Infant Gen Labor Lgth Anesthesia Del Locatn Provider FOB 07/18/20 Hugo 39 live - full term 7lb 13 oz Male epidural soto Spangler HPI OB, not feeling well Details: MYLENE YATES is a 23 year old who presents for routine OB visit. OB Visit [facility] Calculator Estimated Delivery Date Method Current WG Current Estimate 01/14/24 LMP (Certain) 29w 4d Other Estimates 01/15/24 Ultrasound #1 29w 3d Expected Delivery Route/Plan Labor Preferences- CB/BF classes: no labor support person: Aníbal labor intervention preferences: [] pain management options preferred: epidural if requested cut cord/dad catch: yes : yes PP control planned: discussed discussed possible routes of delivery and associated risks: [] special requests: [] Specific Issue/Plans Covid status: declined Flu vaccine: declined Tdap vaccine: Rhogam: na LARC form signed: yes Problem list reviewed and updated with the most current plan of care details and appropriate orders placed. Relevant counseling for the gestational age provided. Continue routine care and follow up unless otherwise noted in visit notes/problem list details Initial Weight: 112 lb Date -???-???-???-???-???- ???-???-???-???-???-? ??-???- EGA Weight BP Urine Prot -???-???-???-???-???- ???-???-???-???-???-? ??-???- Glucose FHR FuHt Pres Dilation -???-???-???-???-???- ???-???-???-???-???-? ??-???- Effaced St Visit Note 06/10/23 -???-???-???-???-???- ???-???-???-???-???-? ??-???- 8w 6d 112 lb 8 oz (+8 oz) 106/72 -???-???-???-???-???- ???-???-???-???-???-? ??-???- 168 -???-???-???-???-???- ???-???-???-???-???-? ??-???- LC- no vb/cr amping. 1st trimester US on 06/03 CRL con with LMP. CL[facility]ITA 01/14/2024. accepts nipt. 07/06/23 -???-???-???-???-???- ???-???-???-???-???-? ??-???- 12w 4d 116 lb 4 oz (+4 lb 4 oz) 103/72 Negative -???-???-???-???-???- ???-???-???-???-???-? ??-???- Negative 160 -???-???-???-???-???- ???-???-???-???-???-? ??-???- SM- no vb cr amping 08/01/23 -???-???-???-???-???- ???-???-???-???-???-? ??-???- 16w 2d 117 lb 6 oz (+5 lb 6 oz) 113/68 Negative -???-???-???-???-???- ???-???-???-???-???-? ??-???- Negative 155 -???-???-???-???-???- ???-???-???-???-???-? ??-???- LC- no vb/cr amping. mfm anatomy ordered. afp discussed and desired. order placed. 08/31/23 -???-???-???-???-???- ???-???-???-???-???-? ??-???- 20w 4d 121 lb 4 oz (+9 lb 4 oz) 116/80 Negative -???-???-???-???-???- ???-???-???-???-???-? ??-???- Negative 155 -???-???-???-???-???- ???-???-???-???-???-? 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 LC-no vb/cramping. anatomy tomorro w. 09/27/23 -???-???-???-???-???- ???-???-???-???-???-? ??-???- 24w 3d 123 lb (+11 lb (more content not included)... Normal [facility] RBC Auto (Bld) [#/Vol]Ordere d By: Shelly Silva on 11-02-2023 RBC (Bld) [#/Vol] 3.44 10*6/uL 4.2-5.4 [facility] Serum or plasma calcium teresa urement (mass/volume)Ordered By: Shelly Silva on 11-02-2023 Calcium [Mass/Vol] 8.8 mg/dL 8.5-10.1 [facility] Serum or plasma creatinine m easurement (mass/volume)Ordered By: Shelly Silva on 11-02-2023 Creatinine [Mass/Vol] 0.47 mg/dL 0.55-1.02 [facility] Comment on above: The validity of the calculated GFR & GFRAA in patients over 70 years has not been determined. Clinical correlation is essential. Serum or plasma urea nitroge n measurement (mass/volume)Ordered By: Shelly Silva on 11-02-2023 Urea nitrogen [Mass/Vol] 5 mg/dL 7-18 [facility] Thin prep Papanicolaou smear with manual screeningOrdered By: Shelly Silva on 11-02-2023 Thin prep Papanicolaou smear with manual screening 3.0 g/dL 3.2-5.0 [facility] Thin prep Papanicolaou smear with manual screening 14 U/L 15-37 [facility] Thin prep Papanicolaou smear with manual screening 5 5-15 [facility] Absolute lymphocyte countOrd ered By: Riddhi Villalobos on 10-17-2023 Lymphocytes Auto (Unsp spec) [#/Vol] 1.36 10*3/uL 0.83-4.51 [facility] Automated lymphocyte count a s percentage of total leukocytesOrdered By: Riddhi Villalobos on 10-17-2023 Lymphocytes/100 WBC Auto (Unsp spec) 14.5 % 19-41 [facility] Basophil percentageOrdered B y: Riddhi Villalobos on 10-17-2023 Basophils/100 WBC (Bld) 0.2 % 0-1 [facility] Eosinophils/100 WBC (Bld) 0.4 % 0-5 [facility] Hemoglobin (Bld) [Mass/Vol] 11.3 g/dL 12.0-15.0 [facility] Monocytes/100 WBC (Bld) 5.2 % 0-10 [facility] Neutrophils (Bld) [#/Vol] 7.4 10*3/uL 2.0-7.7 [facility] Neutrophils/100 WBC (Bld) 79.1 % 47-70 [facility] WBC (Bld) [#/Vol] 9.4 10*3/uL 4.4-11.0 [facility] CBC W/Diff, Automatedon 03-0 -2023 Absolute Lymph 1.36 X10 3/uL Normal 0.83-4.51 [facility] Comment on above: Performed By: #### L 100.0100, L501.0250, L3890.6005, L509.8000 #### [facility] [address] [place], [address] Absolute Neut 7.4 X10 3/uL Normal 2.0-7.7 [facility] Comment on above: Performed By: #### L 100.0100, L501.0250, L3890.6005, L509.8000 #### [facility] [address] [place], [address] Basophils/100 WBC (Bld) 0.2 % Normal 0-1 [facility] Comment on above: Performed By: #### L 100.0100, L501.0250, L3890.6005, L509.8000 #### [facility] [address] [place], [address] Eosinophils/100 WBC (Bld) 0.4 % Normal 0-5 [facility] Comment on above: Performed By: #### L 100.0100, L501.0250, L3890.6005, L509.8000 #### [facility] [address] [place], [address] Erythrocyte distribution width (RBC) [Ratio] 14.6 % Normal 11.6-14.6 [facility] Comment on above: Performed By: #### L 100.0100, L501.0250, L3890.6005, L509.8000 #### [facility] [address] [place], [address] Hematocrit (Bld) [Volume fraction] 32.8 % Low 37-47 [facility] Comment on above: Performed By: #### L 100.0100, L501.0250, L3890.6005, L509.8000 #### [facility] [address] [place], [address] Hemoglobin (Bld) [Mass/Vol] 11.3 g/dL Low 12.0-15.0 [facility] Comment on above: Performed By: #### L 100.0100, L501.0250, L3890.6005, L509.8000 #### [facility] [address] [place], [address] IG% 0.600 Normal 0.0-0.9 [facility] Comment on above: Result Comment: IG% - Immature Granulocytes (promyelocytes, myelocytes and metamyelocytes) > 1% indicates that a LEFT SHIFT is Present. Performed By: #### L 100.0100, L501.0250, L3890.6005, L509.8000 #### [facility] [address] [place], [address] Lymphocytes/100 WBC (Bld) 14.5 % Low 19-41 [facility] Comment on above: Performed By: #### L 100.0100, L501.0250, L3890.6005, L509.8000 #### [facility] [address] [place], [address] MCH (RBC) [Entitic mass] 32.6 pg High 27.0-32.0 [facility] Comment on above: Performed By: #### L 100.0100, L501.0250, L3890.6005, L509.8000 #### [facility] [address] [place], [address] MCHC (RBC) [Mass/Vol] 34.5 g/dL Normal 32-36 [facility] Comment on above: Performed By: #### L 100.0100, L501.0250, L3890.6005, L509.8000 #### [facility] [address] [place], [address] MCV (RBC) [Entitic vol] 94.5 fL Normal 81-99 [facility] Comment on above: Performed By: #### L 100.0100, L501.0250, L3890.6005, L509.8000 #### [facility] [address] [place], [address] Monocytes/100 WBC (Bld) 5.2 % Normal 0-10 [facility] Comment on above: Performed By: #### L 100.0100, L501.0250, L3890.6005, L509.8000 #### [facility] [address] [place], [address] Neutrophils/100 WBC (Bld) 79.1 % High 47-70 [facility] Comment on above: Performed By: #### L 100.0100, L501.0250, L3890.6005, L509.8000 #### [facility] [address] [place], [address] Nucleated RBC (Bld) [#/Vol] 0 10*3/uL Normal 0-5 [facility] Comment on above: Performed By: #### L 100.0100, L501.0250, L3890.6005, L509.8000 #### [facility] [address] [place], [address] Platelet mean volume (Bld) [Entitic vol] 10.9 fL Normal 6.2-12.0 [facility] Comment on above: Performed By: #### L 100.0100, L501.0250, L3890.6005, L509.8000 #### [facility] [address] [place], [address] Platelets (Bld) [#/Vol] 181 10*3/uL Normal 150-450 [facility] Comment on above: Performed By: #### L 100.0100, L501.0250, L3890.6005, L509.8000 #### [facility] [address] [place], [address] RBC (Bld) [#/Vol] 3.47 10*6/uL Low 4.2-5.4 [facility] Comment on above: Performed By: #### L 100.0100, L501.0250, L3890.6005, L509.8000 #### [facility] [address] [place], [address] RDW SD 50.1 fl High 35.1-43.9 [facility] Comment on above: Performed By: #### L 100.0100, L501.0250, L3890.6005, L509.8000 #### [facility] [address] [place], [address] WBC (Bld) [#/Vol] 9.4 10*3/uL Normal 4.4-11.0 [facility] Comment on above: Performed By: #### L 100.0100, L501.0250, L3890.6005, L509.8000 #### [facility] [address] [place], [address] Determination of erythrocyte mean corpuscular volume (MCV)Ordered By: Riddhi Villalobos on 10-17-2023 MCV (RBC) [Entitic vol] 94.5 fL 81-99 [facility] Erythrocyte distribution wid th ratioOrdered By: Riddhi Villalobos on 10-17-2023 Erythrocyte distribution width (RBC) [Ratio] 14.6 % 11.6-14.6 [facility] Erythrocyte distribution wid th standard deviationOrdered By: Riddhi Villalobos on 10-17-2023 Erythrocyte distribution width (RBC) [Entitic vol] 50.1 fL 35.1-43.9 [facility] Gestational diabetes screen 1-hour screen with 50g oral glucose loadOrdered By: Riddhi Villalobos on 10-17-2023 Glucose 1 Hr post 50 g glucose PO [Mass/Vol] 85 mg/dL 70-140 [facility] Glucose Challenge Gest 1H 50 deborah 10-17-2023 GLU GEST 50g 1H 85 mg/dL Normal 70-140 [facility] Comment on above: Performed By: #### L 100.0100, L501.0250, L3890.6005, L509.8000 #### [facility] [address] [place], [place], [id number] HIV - WCHon 10-17-2023 HIV Non-Reactive Normal Nonreactive [facility] Comment on above: Performed By: #### L 100.0100, L501.0250, L3890.6005, L509.8000 #### [facility] [address] [place], [place], [id number] HIV 1 and HIV-2 antibody ass ay with HIV-1 p24 antigen detectionOrdered By: Riddhi Villalobos on 10-17-2023 HIV 1+2 Ab+HIV1 p24 Ag IA Ql Non-Reactive Nonreactive [facility] Hematocrit Auto (Bld) [Volum e fraction]Ordered By: Riddhi Villalobos on 10-17-2023 Hematocrit (Bld) [Volume fraction] 32.8 % 37-47 [facility] Immature granulocytes/100 WB C Auto (Bld)Ordered By: Riddhi Villalobos on 10-17-2023 Immature granulocytes/100 WBC (Bld) 0.600 % 0.0-0.9 [facility] Comment on above: IG% - Immature Granu locytes (promyelocytes, myelocytes and metamyelocytes) > 1% indicates that a LEFT SHIFT is Present. L509.8000on 10-17-2023 Syphilis Abs Non-Reactive Normal [facility] Comment on above: Performed By: #### L 100.0100, L501.0250, L3890.6005, L509.8000 #### [facility] [address] [place], [place], [id number] Laboratory - Chemistry and C hemistry - challengeon 10-17-2023 Glucose Ql (U) Negative [facility] - Hematology and Cell countsOrdered By: Riddhi Villalobos on 10-17-2023 MCH (RBC) [Entitic mass] 32.6 pg 27.0-32.0 [facility] MCHC (RBC) [Mass/Vol] 34.5 g/dL 32-36 [facility] Nucleated RBC/100 WBC (Bld) [Ratio] 0 % 0-5 [facility] Platelet mean volume (Bld) [Entitic vol] 10.9 fL 6.2-12.0 [facility] Platelets (Bld) [#/Vol] 181 10*3/uL 150-450 [facility] Laboratory - Urinalysison Protein Ql (U) Negative [facility] City Planner Office Visit Reporton 10-17-2023 City Planner Office Visit Report [facility] [place] 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 Required: No Accompanied by: Significant Other Is patient in pain?: No Allergies No Known Allergies Allergy (Verified 10/17/23 15:44) Medications multivitamin no.47-iron fum 27 mg-folate no.1 1 mg-dha 300 mg capsule (PNV-DHA) cap PO 06/10/23 [History Confirmed 10/17/23] Last Menstrual Period: 04/09/23 Current gender identity: female Zika: Zika virus screening: Negative : No PFSH PFSH Medical History Vaginal delivery Surgical History Hx of tonsillectomy Family History Grandmother Hypertension Breast cancer Social History adopted: No household members: spouse housing: house current occupational status: employed current occupation: [employer] current occupational exposures/hazards: No pets and animals: Yes pets and animals: dog(s) history of recent travel: No sexually active: Yes Smoking Status: Never smoker alcohol intake: current details: socially substance use type: does not use caffeine: Yes seatbelt use: always do you feel safe at home: Yes 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 Date Name GA/Weeks Outcome Route Bth Weight Infant Gen Labor Lgth Anesthesia Del Locatn Provider FOB 07/18/20 Hugo 39 live - full term 7lb 13 oz Male epidural soto Spangler HPI 28 WK OB/GLUCOSE Details: MYLENE YATES is a 23 year old who presents for routine OB visit. OB Visit [facility] Calculator Estimated Delivery Date Method Current WG Current Estimate 01/14/24 LMP (Certain) 27w 2d Other Estimates 01/15/24 Ultrasound #1 27w 1d Expected Delivery Route/Plan Labor Preferences- CB/BF classes: no labor support person: Aníbal labor intervention preferences: [] pain management options preferred: epidural if requested cut cord/dad catch: yes : yes PP control planned: discussed discussed possible routes of delivery and associated risks: [] special requests: [] Specific Issue/Plans Covid status: declined Flu vaccine: declined Tdap vaccine: Rhogam: na LARC form signed: yes Problem list reviewed and updated with the most current plan of care details and appropriate orders placed. Relevant counseling for the gestational age provided. Continue routine care and follow up unless otherwise noted in visit notes/problem list details Initial Weight: 112 lb Date -???-???-???-???-???- ???-???-???-???-???-? ??-???- EGA Weight BP Urine Prot -???-???-???-???-???- ???-???-???-???-???-? ??-???- Glucose FHR FuHt Pres Dilation -???-???-???-???-???- ???-???-???-???-???-? ??-???- Effaced St Visit Note 06/10/23 -???-???-???-???-???- ???-???-???-???-???-? ??-???- 8w 6d 112 lb 8 oz (+8 oz) 106/72 -???-???-???-???-???- ???-???-???-???-???-? ??-???- 168 -???-???-???-???-???- ???-???-???-???-???-? ??-???- LC- no vb/cr amping. 1st trimester US on 06/03 CRL con with LMP. CLRAITA 01/14/2024. accepts nipt. 07/06/23 -???-???-???-???-???- ???-???-???-???-???-? ??-???- 12w 4d 116 lb 4 oz (+4 lb 4 oz) 103/72 Negative -???-???-???-???-???- ???-???-???-???-???-? ??-???- Negative 160 -???-???-???-???-???- ???-???-???-???-???-? ??-???- SM- no vb cr amping 08/01/23 -???-???-???-???-???- ???-???-???-???-???-? ??-???- 16w 2d 117 lb 6 oz (+5 lb 6 oz) 113/68 Negative -???-???-???-???-???- ???-???-???-???-???-? ??-???- Negative 155 -???-???-???-???-???- ???-???-???-???-???-? ??-???- LC- no vb/cr amping. mfm anatomy ordered. afp discussed and desired. order placed. 08/31/23 -???-???-???-???-???- ???-???-???-???-???-? ??-???- 20w 4d 121 lb 4 oz (+9 lb 4 oz) 116/80 Negative -???-???-???-???-???- ???-???-???-???-???-? ??-???- Negative 155 -???-???-???-???-???- ???-???-???-???-???-? 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 LC-no vb/cramping. anatomy tomorro w. 09/27/23 -???-???-???-???-? (more content not included)... Normal [facility] RBC Auto (Bld) [#/Vol]Ordere d By: Riddhi Villalobos on 10-17-2023 RBC (Bld) [#/Vol] 3.47 10*6/uL 4.2-5.4 [facility] Serum Treponema species anti body detectionOrdered By: Riddhi Villalobos on 10-17-2023 Treponema sp Ab Ql (S) Non-Reactive [facility] Laboratory - Chemistry and C hemistry - challengeon 09-27-2023 Glucose Ql (U) Negative [facility] Laboratory - Urinalysison Protein Ql (U) Negative [facility] City Planner Office Visit Reporton 09-27-2023 City Planner Office Visit Report [facility] [address] [place] [address] OFFICE VISIT Date of Service: 09/27/23 MR#: [id number] Acct: [id number] Name: MYLENE YATES Rep #: [id number] : 2000 Provider: ANNE-MARIE Wolfe ams Age/Sex: 23/F Location: [facility] Status: Signed Intake Vital Signs 07/06/23 09:45 08/31/23 15:44 09/27/23 15:32 09/27/23 15:34 Height 5 ft 2 in 5 ft 2 in 5 ft 2 in 5 ft 2 in Weight: 123 lb BMI 22.4 BP 107/71 Intake Visit Reasons: 25 WK OB Theology Professor Required: No Is patient in pain?: No Allergies No Known Allergies Allergy (Verified 09/27/23 15:33) Medications multivitamin no.47-iron fum 27 mg-folate no.1 1 mg-dha 300 mg capsule (PNV-DHA) cap PO 06/10/23 [History Confirmed 09/27/23] Last Menstrual Period: 04/09/23 Zika: Zika virus screening: Negative PFSH PFSH Medical History Vaginal delivery Surgical History Hx of tonsillectomy Family History Grandmother Hypertension Breast cancer Social History adopted: No household members: spouse housing: house current occupational status: employed current occupation: [employer] current occupational exposures/hazards: No pets and animals: Yes pets and animals: dog(s) history of recent travel: No sexually active: Yes Smoking Status: Never smoker alcohol intake: current details: socially substance use type: does not use caffeine: Yes seatbelt use: always do you feel safe at home: Yes 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 Date Name GA/Weeks Outcome Route Bth Weight Infant Gen Labor Lgth Anesthesia Del Locatn Provider FOB 07/18/20 Hugo 39 live - full term 7lb 13 oz Male epidural [place] HPI 25 WK OB Details: MYLENE YATES is a 23 year old who presents for routine OB visit. OB Visit CLARITA Calculator Estimated Delivery Date Method Current WG Current Estimate 01/14/24 LMP (Certain) 24w 3d Other Estimates 01/15/24 Ultrasound #1 24w 2d Expected Delivery Route/Plan Labor Preferences- CB/BF classes: [] labor support person: [] labor intervention preferences: [] pain management options preferred: [] cut cord/dad catch: [] : [] PP control planned: [] discussed possible routes of delivery and associated risks: [] special requests: [] Specific Issue/Plans Covid status: declined Flu vaccine: declined Tdap vaccine: [] Rhogam: [] LARC form signed: [] Problem list reviewed and updated with the most current plan of care details and appropriate orders placed. Relevant counseling for the gestational age provided. Continue routine care and follow up unless otherwise noted in visit notes/problem list details Initial Weight: 112 lb Date -???-???-???-???-???- ???-???-???-???-???-? ??-???- EGA Weight BP Urine Prot -???-???-???-???-???- ???-???-???-???-???-? ??-???- Glucose FHR FuHt Pres Dilation -???-???-???-???-???- ???-???-???-???-???-? ??-???- Effaced St Visit Note 06/10/23 -???-???-???-???-???- ???-???-???-???-???-? ??-???- 8w 6d 112 lb 8 oz (+8 oz) 106/72 -???-???-???-???-???- ???-???-???-???-???-? ??-???- 168 -???-???-???-???-???- ???-???-???-???-???-? ??-???- LC- no vb/cr amping. 1st trimester US on 06/03 CRL con with LMP. CLARITA 01/14/2024. accepts nipt. 07/06/23 -???-???-???-???-???- ???-???-???-???-???-? ??-???- 12w 4d 116 lb 4 oz (+4 lb 4 oz) 103/72 Negative -???-???-???-???-???- ???-???-???-???-???-? ??-???- Negative 160 -???-???-???-???-???- ???-???-???-???-???-? ??-???- SM- no vb cr amping 08/01/23 -???-???-???-???-???- ???-???-???-???-???-? ??-???- 16w 2d 117 lb 6 oz (+5 lb 6 oz) 113/68 Negative -???-???-???-???-???- ???-???-???-???-???-? ??-???- Negative 155 -???-???-???-???-???- ???-???-???-???-???-? ??-???- LC- no vb/cr amping. mfm anatomy ordered. afp discussed and desired. order placed. 08/31/23 -???-???-???-???-???- ???-???-???-???-???-? ??-???- 20w 4d 121 lb 4 oz (+9 lb 4 oz) 116/80 Negative -???-???-???-???-???- ???-???-???-???-???-? ??-???- Negative 155 -???-???-???-???-???- ???-???-???-???-???-? 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 LC-no vb/cramping. anatomy tomorro w. 09/27/23 -???-???-???-???-???- ???-???-???-???-???-? ??-???- 24w 3d 123 lb (+11 lb) 107/71 -???-???-???-???-???- ???-???-???-???-???-? ??-???- 155 2 (more content not included)... Normal [facility] Laboratory - Chemistry and C hemistry - challengeon 08-31-2023 Glucose Ql (U) Negative [facility] Laboratory - Urinalysison Protein Ql (U) Negative [facility] City Planner Office Visit Reporton 08-31-2023 City Planner Office Visit Report [facility] [place] [address] OFFICE VISIT Date of Service: 08/31/23 MR#: [id number] Acct: [id number] Name: MYLENE YATES Rep #: [id number] : 2000 Provider: ANNE-MARIE lezama Age/Sex: 23/F Location: [facility] Status: Signed Intake Vital Signs 07/06/23 09:45 08/01/23 15:02 08/31/23 15:41 08/31/23 15:44 Height 5 ft 2 in 5 ft 2 in 5 ft 2 in 5 ft 2 in Weight: 121 lb 4 oz BMI 22.1 BP 116/80 Intake Visit Reasons: 21 WK OB Theology Professor Required: No Is patient in pain?: No Allergies No Known Allergies Allergy (Verified 08/31/23 15:41) Medications multivitamin no.47-iron fum 27 mg-folate no.1 1 mg-dha 300 mg capsule (PNV-DHA) cap PO 06/10/23 [History Confirmed 08/31/23] Last Menstrual Period: 04/09/23 Zika: Zika virus screening: Negative : No PFSH PFSH Medical History Vaginal delivery Surgical History Hx of tonsillectomy Family History Grandmother Hypertension Breast cancer Social History adopted: No household members: spouse housing: house current occupational status: employed current occupation: [employer] current occupational exposures/hazards: No pets and animals: Yes pets and animals: dog(s) history of recent travel: No sexually active: Yes Smoking Status: Never smoker alcohol intake: current details: socially substance use type: does not use caffeine: Yes seatbelt use: always do you feel safe at home: Yes 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 Date Name GA/Weeks Outcome Route Bth Weight Infant Gen Labor Lgth Anesthesia Del Gabrielatn Provider FOB 07/18/20 Hugo 39 live - full term 7lb 13 oz Male epidural [place] Aníbal HPI 21 WK OB Details: MYLENE YATES is a 23 year old who presents for routine OB visit. OB Visit CLARITA Calculator Estimated Delivery Date Method Current WG Current Estimate 01/14/24 LMP (Certain) 20w 4d Other Estimates 01/15/24 Ultrasound #1 20w 3d Expected Delivery Route/Plan Labor Preferences- CB/BF classes: [] labor support person: [] labor intervention preferences: [] pain management options preferred: [] cut cord/dad catch: [] : [] PP control planned: [] discussed possible routes of delivery and associated risks: [] special requests: [] Specific Issue/Plans Covid status: declined Flu vaccine: declined Tdap vaccine: [] Rhogam: [] LARC form signed: [] Problem list reviewed and updated with the most current plan of care details and appropriate orders placed. Relevant counseling for the gestational age provided. Continue routine care and follow up unless otherwise noted in visit notes/problem list details Initial Weight: 112 lb Date -???-???-???-???-???- ???-???-???-???-???-? ??-???- EGA Weight BP Urine Prot -???-???-???-???-???- ???-???-???-???-???-? ??-???- Glucose FHR FuHt Pres Dilation -???-???-???-???-???- ???-???-???-???-???-? ??-???- Effaced St Visit Note 06/10/23 -???-???-???-???-???- ???-???-???-???-???-? ??-???- 8w 6d 112 lb 8 oz (+8 oz) 106/72 -???-???-???-???-???- ???-???-???-???-???-? ??-???- 168 -???-???-???-???-???- ???-???-???-???-???-? ??-???- LC- no vb/cr amping. 1st trimester US on 06/03 CRL con with LMP. CLARITA 01/14/2024. accepts nipt. 07/06/23 -???-???-???-???-???- ???-???-???-???-???-? ??-???- 12w 4d 116 lb 4 oz (+4 lb 4 oz) 103/72 Negative -???-???-???-???-???- ???-???-???-???-???-? ??-???- Negative 160 -???-???-???-???-???- ???-???-???-???-???-? ??-???- SM- no vb cr amping 08/01/23 -???-???-???-???-???- ???-???-???-???-???-? ??-???- 16w 2d 117 lb 6 oz (+5 lb 6 oz) 113/68 Negative -???-???-???-???-???- ???-???-???-???-???-? ??-???- Negative 155 -???-???-???-???-???- ???-???-???-???-???-? ??-???- LC- no vb/cr amping. [facility] anatomy ordered. afp discussed and desired. order placed. 08/31/23 -???-???-???-???-???- ???-???-???-???-???-? ??-???- 20w 4d 121 lb 4 oz (+9 lb 4 oz) 116/80 Negative -???-???-???-???-???- ???-???-???-???-???-? ??-???- Negative 155 -???-???-???-???-???- ???-???-???-???-???-? 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 LC-no vb/cramping. anatomy tomorro w. ACOG First Trimester First Trimester: Desire for , Alcohol, Tobacco Cessation, Illicit/Recreati (more content not included)... [facility] TEST Normal [facility] Comment on above: Order Comment: [id number] AFP / SERUM / RMT Result Comment: TEST RESULTS LIMITS AFP, Serum, Open Spina Bifida Results Report Test Results: *Screen Negative* Gest. Age on Collection Date 16.3 weeks Gestat. Age Based On LMP Recalculations are not recommended when gestational dating by LMP and ultrasound are within 10 days. M[age] CLARITA [age] yr Race Weight 117 lbs Insulin Dep Diabetes No Multiple Gestation Not provided. AFP Value 75.0 ng/mL AFP MoM 1.80 OSBR Risk 1 IN 1278 Interpretation Interpretation: Screen Negative This result is screen negative for OSB. The AFP MoM calculated is based on the gestational age provided. MS-AFP can identify up to 80% of open neural tube defects. Closed neural tube defects and some open defects may not be detected by this test. This test does not screen for Down Syndrome or Trisomy 18. If screening for Down Syndrome or Trisomy 18 is desired, contact [facility] to discuss available options. The [place] [employer] recommends amniocentesis be offered to women age 35 and older. Comment: Yasmin Grijalva, Ph.D., [facility] Director References: Available Upon Request. Multiples Of Median Cutoffs For AFP Elevations Patino 2.5 Black 2.8 IDD 2.0 Twins 4.5 Abbreviation Definitions IDD - Insulin Dep Diabetes OSBR - Open Spina Bifida Risk For further inquiries contact [facility] at [phone]. This test was developed and its performance characteristics determined by [facility]. It has not been cleared or approved by the Food and Drug Administration. TESTING PERFORMED AT [facility]. ORIGINAL REPORT ON FILE IN LAB CONTAINS ADDITIONAL TEST SITE INFORMATION. Performed By: #### M 100.2200, L7000.1800 #### [facility] [address] [place], [address] Laboratory - Chemistry and C hemistry - challengeon 08-01-2023 Glucose Ql (U) Negative [facility] Laboratory - Urinalysison Protein Ql (U) Negative [facility] No Panel InformationOrdered By: Rodolfo Aguero on 08-01-2023 Miscellaneous Test See comment [facility] Comment on above: TEST RESULTS LIMITSA FP, Serum, Open Spina BifidaResults ReportTest Results: *Screen Negative*Gest. Age on Collection Date 16.3 weeksGestat. Age Based On LMPRecalculations are not recommended when gestational dating by LMP and ultrasound are within 10 days.M[age] CLARITA [age] yrRace CaucasianWeight 117 lbsInsulin Dep Diabetes NoMultiple Gestation Not provided.AFP Value 75.0 ng/mLAFP MoM 1.80OSBR Risk 1 IN 1278InterpretationInterpretation: Screen NegativeThis result is screen negative for OSB. The AFP MoM calculated is based on the gestational age provided. MS-AFP can identify up to 80% of open neural tube defects. Closed neural tube defects and some open defects may not be detected by this test. This test does not screen for Down Syndrome or Trisomy 18. If screening for Down Syndrome or Trisomy 18 is desired, contact [facility] to discuss available options. The [place] [employer] recommends amniocentesis be offeredto women age 35 and older.Comment: Yasmin Grijalva, Ph.D., [facility] DirectorReferences: Available Upon Request.Multiples Of Median Cutoffs For AFP ElevationsSingleton 2.5 Black 2.8IDD 2.0 Twins 4.5 Abbreviation DefinitionsIDD - Insulin Dep DiabetesOSBR - Open Spina Bifida RiskFor further inquiries contact [facility] at [phone].This test was developed and its performance characteristicsdetermined by [facility]. It has not been cleared or approvedby the Food and Drug Administration. TESTING PERFORMED AT [facility]. ORIGINAL REPORT ON FILE IN LAB CONTAINS ADDITIONAL TEST SITE INFORMATION. City Planner Office Visit Reporton 08-01-2023 City Planner Office Visit Report [facility] 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: No Is patient in pain?: No Allergies No Known Allergies Allergy (Verified 08/01/23 15:02) Medications multivitamin no.47-iron fum 27 mg-folate no.1 1 mg-dha 300 mg capsule (PNV-DHA) cap PO 06/10/23 [History Confirmed 08/01/23] Last Menstrual Period: 04/09/23 Zika: Zika virus screening: Negative : No PFSH PFSH Medical History Vaginal delivery Surgical History Hx of tonsillectomy Family History Grandmother Hypertension Breast cancer Social History adopted: No household members: spouse housing: house current occupational status: employed current occupation: [employer] current occupational exposures/hazards: No pets and animals: Yes pets and animals: dog(s) history of recent travel: No sexually active: Yes Smoking Status: Never smoker alcohol intake: current details: socially substance use type: does not use caffeine: Yes seatbelt use: always do you feel safe at home: Yes 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 Date Name GA/Weeks Outcome Route Bth Weight Gen Labor Lgth Anesthesia Del Locatn Provider FOB 07/18/20 Hugo 39 live - full term 7lb 13 oz Male epidural [place] Aníbal HPI 17 WK OB Details: MYLENE YATES is a 22 year old who presents for routine OB visit. OB Visit CLARITA Calculator Estimated Delivery Date Method Current WG Current Estimate 01/14/24 LMP (Certain) 16w 2d Other Estimates 01/15/24 Ultrasound #1 16w 1d Expected Delivery Route/Plan Labor Preferences- CB/BF classes: [] labor support person: [] labor intervention preferences: [] pain management options preferred: [] cut cord/dad catch: [] : [] PP control planned: [] discussed possible routes of delivery and associated risks: [] special requests: [] Specific Issue/Plans Covid status: declined Flu vaccine: declined Tdap vaccine: [] Rhogam: [] LARC form signed: [] Problem list reviewed and updated with the most current plan of care details and appropriate orders placed. Relevant counseling for the gestational age provided. Continue routine care and follow up unless otherwise noted in visit notes/problem list details Initial Weight: 112 lb Date -???-???-???-???-???- ???-???-???-???-???-? ??-???- EGA Weight BP Urine Prot -???-???-???-???-???- ???-???-???-???-???-? ??-???- Glucose FHR FuHt Pres Dilation -???-???-???-???-???- ???-???-???-???-???-? ??-???- Effaced St Visit Note 06/10/23 -???-???-???-???-???- ???-???-???-???-???-? ??-???- 8w 6d 112 lb 8 oz (+8 oz) 106/72 -???-???-???-???-???- ???-???-???-???-???-? ??-???- 168 -???-???-???-???-???- ???-???-???-???-???-? ??-???- LC- no vb/cr amping. 1st trimester US on 06/03 CRL con with LMP. CLRAITA 01/14/2024. accepts nipt. 07/06/23 -???-???-???-???-???- ???-???-???-???-???-? ??-???- 12w 4d 116 lb 4 oz (+4 lb 4 oz) 103/72 Negative -???-???-???-???-???- ???-???-???-???-???-? ??-???- Negative 160 -???-???-???-???-???- ???-???-???-???-???-? ??-???- SM- no vb cr amping 08/01/23 -???-???-???-???-???- ???-???-???-???-???-? ??-???- 16w 2d 117 lb 6 oz (+5 lb 6 oz) 113/68 Negative -???-???-???-???-???- ???-???-???-???-???-? ??-???- Negative 155 -???-???-???-???-???- ???-???-???-???-???-? ??-???- LC- no vb/cr amping. mfm anatomy ordered. afp discussed and desired. order placed. ACOG First Trimester First Trimester: Desire for , Alcohol, Tobacco Cessation, Illicit/Recreational Drug/Substance Use, Intimate Partner Violence, Barriers to care, Unstable Housing, Communication Barriers, Environmental/Work Hazards, Anticipated Course of Care, Toxoplasmosis Precations, Use of Any medications, Sexual activity, Exercise, Dental Care, Sauna/Hot tub use, Seat Belt use, Childbirth classes/Hospi (more content not included)... Normal [facility] Laboratory - Chemistry and C hemistry - challengeon 07-06-2023 Glucose Ql (U) Negative [facility] Laboratory - Urinalysison Protein Ql (U) Negative [facility] City Planner Office Visit Reporton 07-06-2023 City Planner Office Visit Report [facility] [address] [place] [address] OFFICE VISIT Date of Service: 07/06/23 MR#: [id number] Acct: [id number] Name: MYLENE YATES Rep #: [id number] : 2000 Provider: Dr. Riddhi lindquist MD Age/Sex: 22/F Location: [facility] Status: Signed Intake Vital Signs 06/10/23 13:20 07/06/23 09:45 Height 5 ft 2 in 5 ft 2 in Weight: 116 lb 4 oz BMI 21.2 BP 103/72 Intake Visit Reasons: 13 WK OB Theology Professor Required: No Is patient in pain?: No Allergies No Known Allergies Allergy (Verified 07/06/23 09:52) Medications multivitamin no.47-iron fum 27 mg-folate no.1 1 mg-dha 300 mg capsule (PNV-DHA) cap PO 06/10/23 [History Confirmed 07/06/23] Last Menstrual Period: 04/09/23 Current gender identity: female Zika: Zika virus screening: Negative : No PFSH PFSH Medical History Vaginal delivery Surgical History Hx of tonsillectomy Family History Grandmother Hypertension Breast cancer Social History adopted: No household members: spouse housing: house current occupational status: employed current occupation: [employer] current occupational exposures/hazards: No pets and animals: Yes pets and animals: dog(s) history of recent travel: No sexually active: Yes Smoking Status: Never smoker alcohol intake: current details: socially substance use type: does not use caffeine: Yes seatbelt use: always do you feel safe at home: Yes 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 Date Name GA/Weeks Outcome Route Bth Weight Gen Labor Lgth Anesthesia Del Gabrielatn Provider FOB 07/18/20 Hugo 39 live - full term 7lb 13 oz Male epidural [place] Aníbal HPI 13 WK OB Details: MYLENE YATES is a 22 year old who presents for routine OB visit. OB Visit CLAR[facility] Calculator Estimated Delivery Date Method Current WG Current Estimate 01/14/24 LMP (Certain) 12w 4d Other Estimates 01/15/24 Ultrasound #1 12w 3d Expected Delivery Route/Plan Labor Preferences- CB/BF classes: [] labor support person: [] labor intervention preferences: [] pain management options preferred: [] cut cord/dad catch: [] : [] PP control planned: [] discussed possible routes of delivery and associated risks: [] special requests: [] Specific Issue/Plans Covid status: declined Flu vaccine: declined Tdap vaccine: [] Rhogam: [] LARC form signed: [] Problem list reviewed and updated with the most current plan of care details and appropriate orders placed. Relevant counseling for the gestational age provided. Continue routine care and follow up unless otherwise noted in visit notes/problem list details Initial Weight: 112 lb Date -???-???-???-???-???- ???-???-???-???-???-? ??-???- EGA Weight BP Urine Prot -???-???-???-???-???- ???-???-???-???-???-? ??-???- Glucose FHR FuHt Pres Dilation -???-???-???-???-???- ???-???-???-???-???-? ??-???- Effaced St Visit Note 06/10/23 -???-???-???-???-???- ???-???-???-???-???-? ??-???- 8w 6d 112 lb 8 oz (+8 oz) 106/72 -???-???-???-???-???- ???-???-???-???-???-? ??-???- 168 -???-???-???-???-???- ???-???-???-???-???-? ??-???- LC- no vb/cr amping. 1st trimester US on 06/03 CRL con with LMP. CLARITA 01/14/2024. accepts nipt. 07/06/23 -???-???-???-???-???- ???-???-???-???-???-? ??-???- 12w 4d 116 lb 4 oz (+4 lb 4 oz) 103/72 Negative -???-???-???-???-???- ???-???-???-???-???-? ??-???- Negative 160 -???-???-???-???-???- ???-???-???-???-???-? ??-???- SM- no vb cr amping ACOG First Trimester First Trimester: Desire for , Alcohol, Tobacco Cessation, Illicit/Recreational Drug/Substance Use, Intimate Partner Violence, Barriers to care, Unstable Housing, Communication Barriers, Environmental/Work Hazards, Anticipated Course of Care, Toxoplasmosis Precations, Use of Any medications, Sexual activity, Exercise, Dental Care, Sauna/Hot tub use, Seat Belt use, Childbirth classes/Hospital facilities, , Travel, Indications for Ultrasound and Screening for Aneuploidy Results POC Urinalysis 2 Dip (Clinic) Office Urine Glucose Negative Last Edit by Jacinda Juan on 07/06/23 09:45 Office Urine Protein Negative Last Edit by Jacinda Juan on 07/06/23 09:45 (more content not included)... Normal [facility] Absolute lymphocyte countOrd ered By: Rodolfo Aguero on 06-20-2023 Lymphocytes Auto (Unsp spec) [#/Vol] 1.11 10*3/uL 0.83-4.51 [facility] Basophil percentageOrdered B y: Rodolfo Aguero on 06-20-2023 Basophils/100 WBC (Bld) 0.6 % 0-1 [facility] Eosinophils/100 WBC (Bld) 0.3 % 0-5 [facility] Neutrophils (Bld) [#/Vol] 5.5 10*3/uL 2.0-7.7 [facility] Neutrophils/100 WBC (Bld) 78.4 % 47-70 [facility] WBC (Bld) [#/Vol] 7.0 10*3/uL 4.4-11.0 [facility] Blood erythrocytes count (nu mber/volume)Ordered By: Rodolfo Aguero on 06-20-2023 RBC (Bld) [#/Vol] 4.33 10*6/uL 4.2-5.4 [facility] Blood hemoglobin measurement (mass/volume)Ordered By: Rodolfo Aguero on 06-20-2023 Hemoglobin (Bld) [Mass/Vol] 13.5 g/dL 12.0-15.0 [facility] Blood lymphocytes/100 leukoc ytesOrdered By: Rodolfo Aguero on 06-20-2023 Lymphocytes/100 WBC (Bld) 15.9 % 19-41 [facility] Blood monocytes/100 leukocyt esOrdered By: Rodolfo Aguero on 06-20-2023 Monocytes/100 WBC (Bld) 4.4 % 0-10 [facility] Blood platelet mean volumeOr dered By: Rodolfo Aguero on 06-20-2023 Platelet mean volume (Bld) [Entitic vol] 10.8 fL 6.2-12.0 [facility] CBC W/Diff, Automatedon Absolute Lymph 1.11 X10 3/uL Normal 0.83-4.51 [facility] Comment on above: Performed By: #### M 100.2200, L7000.1800 #### [facility] [address] [place], [address] Absolute Neut 5.5 X10 3/uL Normal 2.0-7.7 [facility] Comment on above: Performed By: #### M 100.2200, L7000.1800 #### [facility] [address] [place], [address] Basophils/100 WBC (Bld) 0.6 % Normal 0-1 [facility] Comment on above: Performed By: #### M 100.2200, L7000.1800 #### [facility] [address] [place], [address] Eosinophils/100 WBC (Bld) 0.3 % Normal 0-5 [facility] Comment on above: Performed By: #### M 100.2200, L7000.1800 #### [facility] [address] [place], [address] Erythrocyte distribution width (RBC) [Ratio] 13.0 % Normal 11.6-14.6 [facility] Comment on above: Performed By: #### M 100.2200, L7000.1800 #### [facility] [address] [place], [address] Hematocrit (Bld) [Volume fraction] 40.0 % Normal 37-47 [facility] Comment on above: Performed By: #### M 100.2200, L7000.1800 #### [facility] [address] [place], [address] Hemoglobin (Bld) [Mass/Vol] 13.5 g/dL Normal 12.0-15.0 [facility] Comment on above: Performed By: #### M 100.2200, L7000.1800 #### [facility] [address] [place], [address] IG% 0.400 Normal 0.0-0.9 [facility] Comment on above: Result Comment: IG% - Immature Granulocytes (promyelocytes, myelocytes and metamyelocytes) > 1% indicates that a LEFT SHIFT is Present. Performed By: #### M 100.2200, L7000.1800 #### [facility] [address] [place], [address] Lymphocytes/100 WBC (Bld) 15.9 % Low 19-41 [facility] Comment on above: Performed By: #### M 100.2200, L7000.1800 #### [facility] [address] [place], [address] MCH (RBC) [Entitic mass] 31.2 pg Normal 27.0-32.0 [facility] Comment on above: Performed By: #### M 100.2200, L7000.1800 #### [facility] [address] [place], [address] MCHC (RBC) [Mass/Vol] 33.8 g/dL Normal 32-36 [facility] Comment on above: Performed By: #### M 100.2200, L7000.1800 #### [facility] [address] [place], [address] MCV (RBC) [Entitic vol] 92.4 fL Normal 81-99 [facility] Comment on above: Performed By: #### M 100.2200, L7000.1800 #### [facility] [address] [place], [address] Monocytes/100 WBC (Bld) 4.4 % Normal 0-10 [facility] Comment on above: Performed By: #### M 100.2200, L7000.1800 #### [facility] [address] [place], [address] Neutrophils/100 WBC (Bld) 78.4 % High 47-70 [facility] Comment on above: Performed By: #### M 100.2200, L7000.1800 #### [facility] [address] [place], [address] Nucleated RBC (Bld) [#/Vol] 0 10*3/uL Normal 0-5 [facility] Comment on above: Performed By: #### M 100.2200, L7000.1800 #### [facility] [address] [place], [address] Platelet mean volume (Bld) [Entitic vol] 10.8 fL Normal 6.2-12.0 [facility] Comment on above: Performed By: #### M 100.2200, L7000.1800 #### [facility] [address] [place], [address] Platelets (Bld) [#/Vol] 205 10*3/uL Normal 150-450 [facility] Comment on above: Performed By: #### M 100.2200, L7000.1800 #### [facility] [address] [place], [address] RBC (Bld) [#/Vol] 4.33 10*6/uL Normal 4.2-5.4 [facility] Comment on above: Performed By: #### M 100.2200, L7000.1800 #### [facility] [address] [place], [address] RDW SD 43.9 fl Normal 35.1-43.9 [facility] Comment on above: Performed By: #### M 100.2200, L7000.1800 #### [facility] [address] [place], [address] WBC (Bld) [#/Vol] 7.0 10*3/uL Normal 4.4-11.0 [facility] Comment on above: Performed By: #### M 100.2200, L7000.1800 #### [facility] [address] [place], [address] Determination of erythrocyte mean corpuscular volume (MCV)Ordered By: Rodolfo Aguero on 06-20-2023 MCV (RBC) [Entitic vol] 92.4 fL 81-99 [facility] HIV - WCHon 06-20-2023 HIV Non-Reactive Normal Nonreactive [facility] Comment on above: Order Comment: Reaso n for Exam: Performed By: #### M 100.2200, L7000.1800 #### [facility] [address] [place], [place], [address] HIV 1 and HIV-2 antibody ass ay with HIV-1 p24 antigen detectionOrdered By: Rodolfo Aguero on 06-20-2023 HIV 1+2 Ab+HIV1 p24 Ag IA Ql [facility] Hematocrit Auto (Bld) [Volum e fraction]Ordered By: Rodolfo Aguero on 06-20-2023 Hematocrit (Bld) [Volume fraction] 40.0 % 37-47 [facility] Hepatitis B Surface Antigeno n 06-20-2023 HEP B Surf Ag Non-Reactive Normal [facility] Comment on above: Order Comment: Reaso n for Exam: Performed By: #### M 100.2200, L7000.1800 #### [facility] [address] [place], [place], [address] Hepatitis C Antibodyon 06-20 Hepatitis C Ab Non-Reactive Normal Nonreactive [facility] Comment on above: Order Comment: Reaso n for Exam: Result Comment: Non Reactive: < 0.8 Equivocal: >/= 0.8 to < 1.0 Reactive: >/= 1.0 The CDC recommends that a reactive/equivocal HCV antibody result be followed up by the HCV Nucleic Acid Amplification test (272478) Performed By: #### M 100.2200, L7000.1800 #### [facility] [address] [place], [place], [address] L509.8000on 06-20-2023 Syphilis Abs Non-Reactive Normal [facility] Comment on above: Order Comment: Reaso n for Exam: Performed By: #### M 100.2200, L7000.1800 #### [facility] [address] [place], [address] Laboratory - Hematology and Cell countsOrdered By: Rodolfo Aguero on 06-20-2023 Erythrocyte distribution width (RBC) [Entitic vol] 43.9 fL 35.1-43.9 [facility] Erythrocyte distribution width (RBC) [Ratio] 13.0 % 11.6-14.6 [facility] Immature granulocytes/100 WBC (Bld) 0.400 % 0.0-0.9 [facility] Comment on above: IG% - Immature Granu locytes (promyelocytes, myelocytes and metamyelocytes) > 1% indicates that a LEFT SHIFT is Present. MCH (RBC) [Entitic mass] 31.2 pg 27.0-32.0 [facility] Nucleated RBC/100 WBC (Bld) [Ratio] 0 % 0-5 [facility] MCHC Auto (RBC) [Mass/Vol]Or dered By: Rodolfo Aguero on 06-20-2023 MCHC (RBC) [Mass/Vol] 33.8 g/dL 32-36 [facility] NATERAon 06-20-2023 NATURA MAILED SPECIMEN Normal [facility] Comment on above: Performed By: #### M 100.2200, L7000.1800 #### [facility] [address] [place], [address] No Panel InformationOrdered By: Rodolfo Aguero on 06-20-2023 Hepatitis B Surface Antigen Non-Reactive Nonreactive [facility] Hepatitis C Antibody Non-Reactive Nonreactive [facility] Comment on above: Non Reactive: < 0.8 Equivocal: >/= 0.8 to < 1.0 Reactive: >/= 1.0The CDC recommends that a reactive/equivocal HCV antibody result be followed up by the HCV Nucleic Acid Amplificationtest (897929) Miscellaneous Test Comment MAILED SPECIMEN [facility] Rubella IgG Antibody Reactive Nonreactive [facility] Comment on above: Antibody Results Int erpretation of Immune Status Non Reactive Presumed Non-Immune Equivocal Equivocal Reactive Presumed Immune Platelets bldOrdered By: Jailyn Aguero on 06-20-2023 Platelets (Bld) [#/Vol] 205 10*3/uL 150-450 [facility] Rubella IgGon 06-20-2023 Rubella IgG Reactive Normal Nonreactive [facility] Comment on above: Order Comment: Reaso n for Exam: Result Comment: Anti body Results Interpretation of Immune Status Non Reactive Presumed Non-Immune Equivocal Equivocal Reactive Presumed Immune Performed By: #### M 100.2200, L7000.1800 #### [facility] [address] [place], [address] Serum Treponema species anti body detectionOrdered By: Rodolfo Aguero on 06-20-2023 Treponema sp Ab Ql (S) Non-Reactive [facility] Type AND Screenon 06-20-2023 ABO and Rh group Nom (Bld) Blood group A Rh(D) positive Normal [facility] Comment on above: Order Comment: PN Performed By: #### M 100.2200, L7000.1800 #### [facility] [address] [place], [address] Chlamydia/GC KRISTIE aptimaon CHLAMY,NUC ACID Negative Normal Negative [facility] Comment on above: Performed By: #### M 100.2200, L7000.1800 #### [facility] [address] [place], [address] GC BY NUC ACID Negative Normal Negative [facility] Comment on above: Result Comment: Perf ormed at: =G - [facility] [address] [id number] [place] Tender: Gege Ruiz MD, Phone: [phone] Performed By: #### M 100.2200, L7000.1800 #### [facility] [address] [place], [address] Urine Cultureon 06-11-2023 URC Culture exhibits no growth. Normal [facility] Comment on above: Performed By: #### M 100.2200, L7000.1800 #### [facility] [address] [place], [address] Chlamydia trachomatis rRNA d etection by probe and target amplification methodOrdered By: Rodolfo Aguero on 06-10-2023 C. trachomatis rRNA KRISTIE+probe Ql (Unsp spec) Negative Negative [facility] Culture, urineOrdered By: Sherrie Aguero on 06-10-2023 Bacteria identified Cx Nom (U) Culture exhibits no growth. [facility] Bacteria identified Cx Nom (U) Culture exhibits no growth. [facility] - Microbiology an d Antimicrobial susceptibilityOrdered By: Rodolfo Aguero on 06-10-2023 N. gonorrhoeae DNA KRISTIE+probe Ql (Unsp spec) Negative Negative [facility] Comment on above: Performed at: =[address] [id number] Director: Gege Ruiz MD, Phone: [phone] City Planner Office Visit Reporton 06-10-2023 City Planner Office Visit Report [facility] [place] [address] [place] [address] OFFICE VISIT Date of Service: 06/10/23 MR#: [id number] Acct: [id number] Name: MYLENE YATES Rep #: [id number] : 2000 Provider: ANNE-MARIE lezama Age/Sex: 22/F Location: [facility] Status: Signed Intake Vital Signs 06/10/23 13:20 Height 5 ft 2 in Weight: 112 lb 8 oz BMI 20.5 BP 106/72 Intake Visit Reasons: NOB LMP 04/09 Theology Professor Required: No Is patient in pain?: No Allergies No Known Allergies Allergy (Verified 06/10/23 13:21) Medications multivitamin no.47-iron fum 27 mg-folate no.1 1 mg-dha 300 mg capsule (PNV-DHA) cap PO 06/10/23 [History Confirmed 06/10/23] Last Menstrual Period: 04/09/23 Zika: Zika virus screening: Negative : No PFSH PFSH Medical History (Updated 06/10/23 @ 14:07 by Rodolfo Aguero CNM) Vaginal delivery Surgical History (Updated 06/10/23 @ 13:12 by Cecelia Garg MA) Hx of tonsillectomy Family History (Updated 06/10/23 @ 13:12 by Cecelia Garg MA) Grandmother Hypertension Breast cancer Social History (Updated 06/10/23 @ 13:17 by Cecelia Garg MA) adopted: No household members: spouse housing: house current occupational status: employed current occupation: [employer] current occupational exposures/hazards: No pets and animals: Yes pets and animals: dog(s) history of recent travel: No sexually active: Yes Smoking Status: Never smoker alcohol intake: current details: socially substance use type: does not use caffeine: Yes seatbelt use: always do you feel safe at home: Yes 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 Date Name GA/Weeks Outcome Route Bth Weight Gen Labor Lgth Anesthesia Del Locatn Provider FOB 07/18/20 Hugo 39 live - full term 7lb 13 oz Male epidural [place] An[place]bal HPI NOB LMP 04/09 Details: MYLENE YATES is a 22 year old who presents for New OB visit. OB Visit [facility] Calculator Estimated Delivery Date Method Current WG Current Estimate 01/14/24 LMP (Certain) 8w 6d Other Estimates 01/15/24 Ultrasound #1 8w 5d Expected Delivery Route/Plan Labor Preferences- CB/BF classes: [] labor support person: [] labor intervention preferences: [] pain management options preferred: [] cut cord/dad catch: [] : [] PP control planned: [] discussed possible routes of delivery and associated risks: [] special requests: [] Specific Issue/Plans Covid status: [] Flu vaccine: [] Tdap vaccine: [] Rhogam: [] LARC form signed: [] Problem list reviewed and updated with the most current plan of care details and appropriate orders placed. Relevant counseling for the gestational age provided. Continue routine care and follow up unless otherwise noted in visit notes/problem list details Initial Weight: 112 lb Date -???-???-???-???-???- ???-???-???-???-???-? ??-???- EGA Weight BP Urine Prot -???-???-???-???-???- ???-???-???-???-???-? ??-???- Glucose FHR FuHt Pres Dilation -???-???-???-???-???- ???-???-???-???-???-? ??-???- Effaced St Visit Note 06/10/23 -???-???-???-???-???- ???-???-???-???-???-? ??-???- 8w 6d 112 lb 8 oz (+8 oz) 106/72 -???-???-???-???-???- ???-???-???-???-???-? ??-???- 168 -???-???-???-???-???- ???-???-???-???-???-? ??-???- LC- no vb/cr amping. 1st trimester US on 06/03 CRL con with LMP. CL[facility]ITA 01/14/2024. accepts nipt. Menstrual History Last Menstrual Period: 04/09/23 Reported LMP: definite Normal amount/duration: Yes On hormonal BC at conception: No Antepartum Record Genetic Screening: Congenital Heart Defect: Other, Neural Tube Defect: Other, Hemoglobinopathy Or Carrier: Other, Cystic Fibrosis: Other, Chromosome Abnormality: Other, Kevin-Sachs: Other, Hemophilia: Other, Intellectual Disability/Autism: Other, Recurrent Loss/Stillbirth: Other, Other Structural Defect: Other, Other Genetic Disease: Other and Maternal Metabolic Disorder: Other Infection History: Live with someone with TB or Exposed to TB: No, Patient or Partner has history of Genital Herpes: No, Rash or Viral illness since last mentrual period: No, Prior GBS-Infected child: No, History of STD: No, HIV Infection: No, History of Hepatitis: No, Recent travel outside of [place]: No, Concern for hepatitis exposure: No and Varicella immune: Yes Medical History Medical History: Negative: Diabetes, Hypertension, Heart disease, Auto-immune disorder, Kidney disease/UTI, Neurologic/epilepsy, Psychiatric, Depression/ depression, Hepatitis/liver disease, Varicosities/phlebiti s, Thyroid dysfunction, Trauma/domestic violence, History of blood transfusions, D (Rh) Sensitized (more content not included)... Normal [facility] Serum or plasma choriogonado tropin detectionOrdered By: Talita Abreu on 06-03-2023 HCG ( test) Ql 190707 mIU/mL <4 [facility] Comment on above: hCG levels with Gest ational AgeGestational Age hCG mIU/mL (IU/L)0.2 - 1 week 5 - 501-2 weeks 50 - 5002-3 weeks 100 - 27572-7 weeks 500 - 733540-2 weeks 1000 - 863197-3 weeks 91282 - 100,0006-8 weeks 68065 - 200,0002-3 months 81714 - 100,000 Transvaginal w/Preg USon Transvaginal w/Preg US [facility] [address] [place] [address] Transvaginal w/Preg US MR#: [id number] Acct: [id number] Name: MYLENE YATES Rep #: [id number] : 2000 F 22 From: Bob De León MD PCP: Status: REG CLI Study: Transvaginal w/Preg US Date of Exam: 06/03/23 Exam# [id number] Ordering Dr: Talita Abreu SUPERVISING LIBRARIAN SUPERVISING LIBRARIAN -C [id number] STUDY: FIRST TRIMESTER OBSTETRICAL ULTRASOUND REASON FOR EXAM: Female, 22 years old viability LMP: 04/09/2023 TECHNIQUE: Transvaginal TECHNICAL QUALITY: Adequate. PRIOR ULTRASOUND: None. FINDINGS: There is visualization of a single gestational sac in a normal intrauterine position. The mean sac diameter (MSD) measures 28 mm, indicating an estimated gestational age (EGA) of 7 weeks, 6 days. The gestational sac shape is within normal limits. There is a visualized yolk sac. The yolk sac measures 3 mm. The placenta is non-visualized. There is visualization of a live embryo. The crown-rump length (CRL) measures 13 mm, indicating an estimated gestational age (EGA) of 7 weeks, 4 days. There is demonstrated cardiac activity with a heart rate of 157 bpm. The estimated gestation age (EGA) by LMP is 7 weeks, 6 days. The estimated date of delivery ([facility]) by LMP is 01/14/2024. The estimated gestation age (EGA) by US is 7 weeks, 5 days. The estimated date of delivery (CLAR[facility]) by US is 01/15/2024. The uterus measures 10.6 x 5.1 x 8.3 cm. There is no demonstrated uterine fibroid. The cervix is closed. The right ovary measures 3.2 x 1.7 x 1.7 cm. There is no right ovarian cyst. There is no visualized right adnexal mass or complex lesion. The left ovary measures 5.0 x 2.7 x 3.2 cm. There is a 4 cm oval anechoic mass with increased transmission of the left ovary consistent with a thecal lutein cyst. There is no visualized left adnexal mass or complex lesion. There is no fluid in the cul de sac. US/Transvaginal w/Preg US IMPRESSION: Living intrauterine of 7 weeks 5 days as described above. Electronically Signed: Bob De León MD at 23:28 EDT , CC: DENY Abreu Farebox Repairer: Signed Normal [facility] hCG Titer Quant., Serumon HCG QUANT. 362611 mIU/mL High 1-3 [facility] Comment on above: Result Comment: hCG levels with Gestational Age Gestational Age hCG mIU/mL (IU/L) 0.2 - 1 week 5 - 50 1-2 weeks 50 - 500 2-3 weeks 100 - 5000 3-4 weeks 500 - 83775 4-5 weeks 1000 - 92305 5-6 weeks 39445 - 100,000 6-8 weeks 58706 - 200,000 2-3 months 81827 - 100,000 Performed By: #### M 100.2200, L7000.1800 #### [facility] [address] [place], [address] Serum or plasma choriogonado tropin detectionOrdered By: Talita Abreu on 06-01-2023 HCG ( test) Ql 899705 mIU/mL <4 [facility] Comment on above: hCG levels with Gest ational AgeGestational Age hCG mIU/mL (IU/L)0.2 - 1 week 5 - 501-2 weeks 50 - 5002-3 weeks 100 - 88860-9 weeks 500 - 764419-3 weeks 1000 - 242433-1 weeks 63518 - 100,0006-8 weeks 70561 - 200,0002-3 months 12703 - 100,000 CBC AND DIFFERENTIALon 10-01 % AUTOMATED IMMATURE GRAN 0.1 % Normal 0.0 - 0.9 [facility] Comment on above: Result Comment: Suzette ture Granulocyte Count (IG) includes promyelocytes, myelocytes and metamyelocytes but does not include bands. Percent differential counts (%) should be interpreted in the context of the absolute cell counts (cells/L). Performed By: #### C BCDF #### [address] [address] Basophils (Bld) [#/Vol] 0.05 10*3/uL Normal 0.00 - 0.1 0 [facility] Comment on above: Performed By: #### C BCDF #### [address] [address] Basophils/100 WBC (Bld) 0.6 % Normal 0.0 - 2.0 [facility] Comment on above: Performed By: #### C BCDF #### [address] [address] Eosinophils (Bld) [#/Vol] 0.10 10*3/uL Normal 0.00 - 0.70 [facility] Comment on above: Performed By: #### C BCDF #### [address] [address] Eosinophils/100 WBC (Bld) 1.2 % Normal 0.0 - 6.0 [facility] Comment on above: Performed By: #### C BCDF #### [address] [address] Erythrocyte distribution width (RBC) [Ratio] 12.6 % Normal 11.5 - 14.5 [facility] Comment on above: Performed By: #### C BCDF #### [address] [address] Hematocrit (Bld) [Volume fraction] 42.0 % Normal 36.0 - 46.0 [facility] Comment on above: Performed By: #### C BCDF #### [address] [address] Hemoglobin (Bld) [Mass/Vol] 14.0 g/dL Normal 12.0 - 16.0 [facility] Comment on above: Performed By: #### C BCDF #### [address] [address] Lymphocytes (Bld) [#/Vol] 1.93 10*3/uL Normal 1.20 - 4.80 [facility] Comment on above: Performed By: #### C BCDF #### [address] [address] Lymphocytes/100 WBC (Bld) 22.6 % Normal 13.0 - 44.0 [facility] Comment on above: Performed By: #### C BCDF #### [address] [address] MCHC (RBC) [Mass/Vol] 33.3 g/dL Normal 32.0 - 36.0 [facility] Comment on above: Performed By: #### C BCDF #### [address] [address] MCV (RBC) [Entitic vol] 93 fL Normal 80 - 100 [facility] Comment on above: Performed By: #### C BCDF #### [address] [address] Monocytes (Bld) [#/Vol] 0.45 10*3/uL Normal 0.10 - 1.0 0 [facility] Comment on above: Performed By: #### C BCDF #### [address] [address] Monocytes/100 WBC (Bld) 5.3 % Normal 2.0 - 10.0 [facility] Comment on above: Performed By: #### C BCDF #### [address] [address] Neutrophils (Bld) [#/Vol] 6.00 10*3/uL Normal 1.20 - 7.70 [facility] Comment on above: Result Comment: Perc ent differential counts (%) should be interpreted in the context of the absolute cell counts (cells/L). Performed By: #### C BCDF #### [address] [address] Neutrophils/100 WBC (Bld) 70.2 % Normal 40.0 - 80.0 [facility] Comment on above: Performed By: #### C BCDF #### [address] [address] Platelets (Bld) [#/Vol] 306 10*3/uL Normal 150 - 450 [facility] Comment on above: Performed By: #### C BCDF #### [address] [address] RBC 4.51 x10E12/L Normal 4.00 - 5.20 [facility] Comment on above: Performed By: #### C BCDF #### [address] [address] WBC (Bld) [#/Vol] 8.5 10*3/uL Normal 4.4 - 11.3 [facility] Comment on above: Performed By: #### C BCDF #### [address] [place] [address] COMPREHENSIVE PANELon 2022 Albumin [Mass/Vol] 4.6 g/dL Normal 3.4 - 5.0 [facility] Comment on above: Performed By: #### C MP #### [address] [address] ALP [Catalytic activity/Vol] 35 U/L Normal 33 - 110 [facility] Comment on above: Performed By: #### C MP #### [address] [address] ALT [Catalytic activity/Vol] 8 U/L Normal 7 - 45 [facility] Comment on above: Result Comment: Renetta ents treated with Sulfasalazine may generate falsely decreased results for ALT. Performed By: #### C MP #### [address] [address] Anion gap [Moles/Vol] 9 mmol/L Low 10 - 20 [facility] Comment on above: Performed By: #### C MP #### [address] [address] AST [Catalytic activity/Vol] 9 U/L Normal 9 - 39 [facility] Comment on above: Performed By: #### C MP #### [address] [address] Bilirubin [Mass/Vol] 1.0 mg/dL Normal 0.0 - 1.2 [facility] Comment on above: Performed By: #### C MP #### [address] [address] Calcium [Mass/Vol] 9.5 mg/dL Normal 8.6 - 10.3 [facility] Comment on above: Performed By: #### C MP #### [address] [address] Chloride [Moles/Vol] 105 mmol/L Normal 98 - 107 [facility] Comment on above: Performed By: #### C MP #### [address] [address] Creatinine [Mass/Vol] 0.62 mg/dL Normal 0.50 - 1.05 [facility] Comment on above: Performed By: #### C MP #### [address] [address] eGFR FEMALE >90 Normal >90 [facility] Comment on above: Result Comment: CALC ULATIONS OF ESTIMATED GFR ARE PERFORMED USING THE 2020 CKD-EPI STUDY REFIT EQUATION WITHOUT THE RACE VARIABLE FOR THE IDMS-TRACEABLE CREATININE METHODS. https://jasn.asnjournals.org/content/early/ASN.2020 391105 Performed By: #### C MP #### [address] [address] Glucose [Mass/Vol] 73 mg/dL Low 74 - 99 [facility] Comment on above: Performed By: #### C MP #### [address] [address] HCO3 (Bld) [Moles/Vol] 28 mmol/L Normal 21 - 32 [facility] Comment on above: Performed By: #### C MP #### [address] [address] Potassium [Moles/Vol] 3.8 mmol/L Normal 3.5 - 5.3 [facility] Comment on above: Performed By: #### C MP #### [address] [address] Protein [Mass/Vol] 6.9 g/dL Normal 6.4 - 8.2 [facility] Comment on above: Performed By: #### C MP #### [address] [address] Sodium [Moles/Vol] 138 mmol/L Normal 136 - 145 [facility] Comment on above: Performed By: #### C MP #### [address] [address] Urea nitrogen [Mass/Vol] 12 mg/dL Normal 6 - 23 [facility] Comment on above: Performed By: #### C MP #### [address] [address] Complete Blood Count + Diffe rentialon 10-01-2022 Basophils/100 WBC (Bld) 0.6 % 0.0 - 2.0 [facility] Work Phone: Erythrocyte distribution width (RBC) [Ratio] 12.6 % See Below [facility] Work Phone: Comment on above: Reference Range: 11. 5 - 14.5 Hematocrit (Bld) [Volume fraction] 42.0 % See Below [facility] Work Phone: Comment on above: Reference Range: 36. 0 - 46.0 Hemoglobin (Bld) [Mass/Vol] 14.0 g/dL See Below [facility] Work Phone: Comment on above: Reference Range: 12. 0 - 16.0 Lymphocytes/100 WBC (Bld) 22.6 % See Below [facility] Work Phone: Comment on above: Reference Range: 13. 0 - 44.0 MCHC (RBC) [Mass/Vol] 33.3 g/dL See Below [facility] Work Phone: Comment on above: Reference Range: 32. 0 - 36.0 MCV (RBC) [Entitic vol] 93 fL 80 - 100 [facility] Work Phone: [phone] Monocytes/100 WBC (Bld) 5.3 % 2.0 - 10.0 [facility] Work Phone: [phone] Neutrophils/100 WBC (Bld) 70.2 % See Below [facility] Work Phone: Comment on above: Reference Range: 40. 0 - 80.0 Platelets (Bld) [#/Vol] 306 10*3/uL 150 - 450 [facility] Work Phone: [phone] RBC (Bld) [#/Vol] 4.51 {x10E12/L} See Below [facility] Work Phone: Comment on above: Reference Range: 4.0 0 - 5.20 WBC (Bld) [#/Vol] 8.5 10*3/uL 4.4 - 11.3 [facility] Work Phone: Complete Blood Count + Differential 0.05 {x10E9/L} See Below [facility] Work Phone: Comment on above: Reference Range: 0.0 0 - 0.10 Complete Blood Count + Differential 0.10 {x10E9/L} See Below [facility] Work Phone: Comment on above: Reference Range: 0.0 0 - 0.70 Complete Blood Count + Differential 0.45 {x10E9/L} See Below [facility] Work Phone: Comment on above: Reference Range: 0.1 0 - 1.00 Complete Blood Count + Differential 1.93 {x10E9/L} See Below [facility] Work Phone: Comment on above: Reference Range: 1.2 0 - 4.80 Complete Blood Count + Differential 6.00 {x10E9/L} See Below [facility] Work Phone: Comment on above: Reference Range: 1.2 0 - 7.70 Percent differential counts (%) should be interpreted in the context of the absolute cell counts (cells/L). Complete Blood Count + Differential 1.2 % 0.0 - 6.0 [facility] Work Phone: Complete Blood Count + Differential 0.1 % 0.0 - 0.9 [facility] Work Phone: Comment on above: Immature Granulocyte Count (IG) includes promyelocytes, myelocytes and metamyelocytes but does not include bands. Percent differential counts (%) should be interpreted in the context of the absolute cell counts (cells/L). FERRITINon 10-01-2022 FERRITIN 29 ug/L Normal 8 - 150 [facility] Comment on above: Performed By: #### F ERRI #### [id number] [place] [address] Ferritin, Serumon 10-01-2022 Ferritin [Mass/Vol] 29 ug/L 8 - 150 [facility] Work Phone: HEMOGLOBIN A1Con 10-01-2022 Glucose [Mass/Vol] 77 mg/dL Normal [facility] Comment on above: Performed By: #### H ODELL1E #### [address] [address] HbA1c (Bld) [Mass fraction] 4.3 % Normal [facility] Comment on above: Result Comment: Diag nosis of Diabetes-Adults Non-Diabetic: < or = 5.6% Increased risk for developing diabetes: 5.7-6.4% Diagnostic of diabetes: > or = 6.5% . Monitoring of Diabetes Age (y) Therapeutic Goal (%) Adults: >18 <7.0 Pediatrics: 13-18 <7.5 7-12 <8.0 0- 6 7.5-8.5 [place] [employer]. Diabetes Care 33(S1), Aug 2009. Performed By: #### H ARNOLD #### [address] [address] Hemoglobin A1Con 10-01-2022 Glucose [Mass/Vol] 77 mg/dL [facility] Work Phone: HbA1c (Bld) [Mass fraction] 4.3 % [facility] Work Phone: Comment on above: Diagnosis of Diabete s-Adults Non-Diabetic: < or = 5.6% Increased risk for developing diabetes: 5.7-6.4% Diagnostic of diabetes: > or = 6.5%. Monitoring of Diabetes Age (y) Therapeutic Goal (%) Adults: >18 <7.0 Pediatrics: 13-18 <7.5 7-12 <8.0 0- 6 7.5-8.5 [place] [employer]. Diabetes Care 33(S1), Aug 2009. IRON + TIBCon 10-01-2022 % SATURATION 35 % Normal 25 - 45 [facility] Comment on above: Performed By: #### I SALEEM #### [address] [address] Iron [Mass/Vol] 113 ug/dL Normal 35 - 150 [facility] Comment on above: Performed By: #### I SALEEM #### [address] [address] TIBC 326 ug/dL Normal 240 - 445 [facility] Comment on above: Performed By: #### I SALEEM #### [address] [address] LIPID PANEL (CORONARY RISK 2 )on 10-01-2022 Cholesterol [Mass/Vol] 125 mg/dL Normal 0 - 199 [facility] Comment on above: Result Comment: . AGE DESIRABLE BORDERLINE HIGH HIGH 0-19 Y 0 - 169 170 - 199 >/= 200 20-24 Y 0 - 189 190 - 224 >/= 225 >24 Y 0 - 199 200 - 239 >/= 240 All ranges are based on fasting samples. Specific therapeutic targets will vary based on patient-specific cardiac risk. . Pediatric guidelines reference:Pediatrics 2011, 128(S5). Adult guidelines reference: NCEP ATPIII Guidelines, WILDA 2001, 258:2486-97 . Venipuncture immediately after or during the administration of Metamizole may lead to falsely low results. Testing should be performed immediately prior to Metamizole dosing. Performed By: #### L IPID #### [address] [address] Cholesterol in HDL [Mass/Vol] 53.0 mg/dL Normal [facility] Comment on above: Result Comment: . AGE VERY LOW LOW NORMAL HIGH 0-19 Y < 35 < 40 40-45 ---- 20-24 Y ---- < 40 >45 ---- >24 Y ---- < 40 40-60 >60 . Performed By: #### L IPID #### [address] [address] Cholesterol in LDL [Mass/Vol] 56 mg/dL Normal 0 - 119 [facility] Comment on above: Result Comment: . NEAR BORD AGE DESIRABLE OPTIMAL HIGH HIGH VERY HIGH 0-19 Y 0 - 109 --- 110-129 >/= 130 ---- 20-24 Y 0 - 119 --- 120-159 >/= 160 ---- >24 Y 0 - 99 100-129 130-159 160-189 >/=190 . Performed By: #### L IPID #### [employer] [address] Cholesterol in VLDL [Mass/Vol] 16 mg/dL Normal 0 - 40 [facility] Comment on above: Performed By: #### L IPID #### [address] [address] Cholesterol.total/Mary sterol in HDL [Mass ratio] 2.4 {ratio} Normal [facility] Comment on above: Result Comment: REF VALUES DESIRABLE < 3.4 HIGH RISK > 5.0 Performed By: #### L IPID #### [address] [address] NON-HDL CHOLESTEROL 72 mg/dL Normal 0 - 149 [facility] Comment on above: Result Comment: AGE DESIRABLE BORDERLINE HIGH HIGH VERY HIGH 0-19 Y 0 - 119 120 - 144 >/= 145 >/= 160 20-24 Y 0 - 149 150 - 189 >/= 190 ---- >24 Y 30 MG/DL ABOVE LDL CHOLESTEROL GOAL . Performed By: #### L IPID #### [address] [address] Triglyceride [Mass/Vol] 79 mg/dL Normal 0 - 149 [facility] Comment on above: Result Comment: . AGE DESIRABLE BORDERLINE HIGH HIGH VERY HIGH 0 D-90 D 19 - 174 ---- ---- ---- 91 D- 9 Y 0 - 74 75 - 99 >/= 100 ---- 10-19 Y 0 - 89 90 - 129 >/= 130 ---- 20-24 Y 0 - 114 115 - 149 >/= 150 ---- >24 Y 0 - 149 150 - 199 200- 499 >/= 500 . Venipuncture immediately after or during the administration of Metamizole may lead to falsely low results. Testing should be performed immediately prior to Metamizole dosing. Performed By: #### L IPID #### [address] [address] Laboratory - Chemistry and C hemistry - challengeon 10-01-2022 Albumin BCP dye [Mass/Vol] 4.6 g/dL 3.4 - 5.0 [facility] Work Phone: ALP [Catalytic activity/Vol] 35 U/L 33 - 110 [facility] Work Phone: [phone] ALT With P-5'-P [Catalytic activity/Vol] 8 U/L 7 - 45 [facility] Medicine Work Phone: [phone] Comment on above: Patients treated wit h Sulfasalazine may generate falsely decreased results for ALT. Anion gap [Moles/Vol] 9 mmol/L below low threshold 10 - 20 [facility] Medicine Work Phone: [phone] AST With P-5'-P [Catalytic activity/Vol] 9 U/L 9 - 39 [facility] Medicine Work Phone: [phone] Bilirubin [Mass/Vol] 1.0 mg/dL 0.0 - 1.2 [facility] Work Phone: [phone] Calcium [Mass/Vol] 9.5 mg/dL 8.6 - 10.3 [facility] Work Phone: [phone] Chloride [Moles/Vol] 105 mmol/L 98 - 107 [facility] Work Phone: [phone] CO2 [Moles/Vol] 28 mmol/L 21 - 32 [facility] Work Phone: [phone] Creatinine [Mass/Vol] 0.62 mg/dL See Below [facility] Work Phone: Comment on above: Reference Range: 0.5 0 - 1.05 Glucose [Mass/Vol] 73 mg/dL below low threshold 74 - 99 [facility] Work Phone: [phone] Iron [Mass/Vol] 113 ug/dL 35 - 150 [facility] Work Phone: [phone] Iron binding capacity [Mass/Vol] 326 ug/dL 240 - 445 [facility] Medicine Work Phone: [phone] Potassium [Moles/Vol] 3.8 mmol/L 3.5 - 5.3 [facility] Medicine Work Phone: [phone] Protein [Mass/Vol] 6.9 g/dL 6.4 - 8.2 [facility] Work Phone: Sodium [Moles/Vol] 138 mmol/L 136 - 145 [facility] Work Phone: TSH Qn 2.26 m[IU]/L See Below [facility] Work Phone: Comment on above: Reference Range: 0.4 4 - 3.98 TSH testing is performed using different testing methodology at [facility] than at other [facility]. Direct result comparisons should only be made within the same method. Urea nitrogen [Mass/Vol] 12 mg/dL 6 - 23 [facility] Work Phone: Lipid Panelon 10-01-2022 Cholesterol [Mass/Vol] 125 mg/dL 0 - 199 [facility] Work Phone: Comment on above: . AGE DESIRABLE BORD FRANCISCO HIGH HIGH 0-19 Y 0 - 169 170 - 199 >/= 200 20-24 Y 0 - 189 190 - 224 >/= 225 >24 Y 0 - 199 200 - 239 >/= 240 All ranges are based on fasting samples. Specific therapeutic targets will vary based on patient-specific cardiac risk.. Pediatric guidelines reference:Pediatrics 2011, 128(S5). Adult guidelines reference: NCEP ATPIII Guidelines, WILDA 2001, 258:2486-97. Venipuncture immediately after or during the administration of Metamizole may lead to falsely low results. Testing should be performed immediately prior to Metamizole dosing. Cholesterol in HDL [Mass/Vol] 53.0 mg/dL [facility] Work Phone: Comment on above: . AGE VERY LOW LOW N ORMAL HIGH 0-19 Y < 35 < 40 40-45 ---- 20-24 Y ---- < 40 >45 ---- >24 Y ---- < 40 40-60 >60. Cholesterol in LDL [Mass/Vol] 56 mg/dL 0 - 119 [facility] Work Phone: Comment on above: . NEAR BORD AGE YVES RABLE OPTIMAL HIGH HIGH VERY HIGH 0-19 Y 0 - 109 --- 110-129 >/= 130 ---- 20-24 Y 0 - 119 --- 120-159 >/= 160 ---- >24 Y 0 - 99 100-129 130-159 160-189 >/=190. Cholesterol non HDL [Mass/Vol] 72 mg/dL 0 - 149 [facility] Work Phone: Comment on above: AGE DESIRABLE BORDER LINE HIGH HIGH VERY HIGH 0-19 Y 0 - 119 120 - 144 >/= 145 >/= 160 20-24 Y 0 - 149 150 - 189 >/= 190 ---- >24 Y 30 MG/DL ABOVE LDL CHOLESTEROL GOAL. Cholesterol.total/Mary sterol in HDL [Mass ratio] 2.4 {ratio} [facility] Work Phone: Comment on above: REF VALUESDESIRABLE < 3.4HIGH RISK > 5.0 Triglyceride [Mass/Vol] 79 mg/dL 0 - 149 [facility] Work Phone: Comment on above: . AGE DESIRABLE BORD FRANCISCO HIGH HIGH VERY HIGH 0 D-90 D 19 - 174 ---- ---- ----91 D- 9 Y 0 - 74 75 - 99 >/= 100 ---- 10-19 Y 0 - 89 90 - 129 >/= 130 ---- 20-24 Y 0 - 114 115 - 149 >/= 150 ---- >24 Y 0 - 149 150 - 199 200- 499 >/= 500. Venipuncture immediately after or during the administration of Metamizole may lead to falsely low results. Testing should be performed immediately prior to Metamizole dosing. Lipid Panel 16 mg/dL 0 - 40 [facility] Work Phone: No Panel Informationon 10-01 >90 >90 [facility] Work Phone: Comment on above: CALCULATIONS OF LASHANDA MATED GFR ARE PERFORMED USING THE 2020 CKD-EPI STUDY REFIT EQUATION WITHOUT THE RACE VARIABLE FOR THE IDMS-TRACEABLE CREATININE METHODS.https://jasn.asnjournals.org/content// ASN.0763246024 35 % 25 - 45 [facility] Work Phone: TSH WITH REFLEX TO FREE T4 I F ABNORMALon 10-01-2022 TSH Qn 2.26 m[IU]/L Normal 0.44 - 3.98 [facility] Comment on above: Result Comment: TSH testing is performed using different testing methodology at [facility] than at other [facility]. Direct result comparisons should only be made within the same method. Performed By: #### T HYDS #### [address] [address] VITAMIN B12on 10-01-2022 Cobalamin (Vitamin B12) [Mass/Vol] 264 pg/mL Normal 211 - 911 [facility] Comment on above: Performed By: #### V TB12 #### [address] [address] Vitamin B12, Serumon 023 Cobalamin (Vitamin B12) [Mass/Vol] 264 pg/mL 211 - 911 [facility] Work Phone: Office Visit (Internal Medic ine)on 09-17-2022 Follow-up visit Diagnoses/Problems Assessed Anxiety (300.00) (F41.9) History of OCD (obsessive compulsive disorder) (V11.2) (Z86.59) Establishing care with new doctor, encounter for (V65.8) (Z76.89) Orders Anxiety Start: busPIRone HCl - 5 MG Oral Tablet; TAKE 1 TABLET 3 times daily PRN anxiety Rx By: Yennifer Tracy; Dispense: 30 Days ; #:90 Tablet; Refill: 0;For: Anxiety; OZZIE = N; Verified Transmission to [address]; Last Updated By: NoRedInk; 09/17/2022 10:59:09 AM Start: PARoxetine HCl - 10 MG Oral Tablet; TAKE 1 TABLET DAILY Rx By: Yennifer Tracy; Dispense: 90 Days ; #:90 Tablet; Refill: 0;For: Anxiety; OZZIE = N; Verified Transmission to [facility] AID-[id number] [place] [address]; Last Updated By: NoRedInk; 09/17/2022 10:59:10 AM Anxiety, Establishing care with new doctor, encounter for, History of OCD (obsessive compulsive disorder) Complete Blood Count + Differential; Status:Active; Requested for:17Sep2022; Perform:Lab Services - Lab To Draw (Blood Test); Due:16Dec2022;Ordered ; For:Anxiety, Establishing care with new doctor, encounter for, History of OCD (obsessive compulsive disorder); Ordered By:Yennifer Tracy; Comprehensive Metabolic Panel; Status:Active; Requested for:17Sep2022; Perform:Lab Services - Lab To Draw (Blood Test); Due:16Dec2022;Ordered ; For:Anxiety, Establishing care with new doctor, encounter for, History of OCD (obsessive compulsive disorder); Ordered By:Yennifer Tracy; Ferritin, Serum; Status:Active; Requested for:17Sep2022; Perform:Lab Services - Lab To Draw (Blood Test); Due:16Dec2022;Ordered ; For:Anxiety, Establishing care with new doctor, encounter for, History of OCD (obsessive compulsive disorder); Ordered By:Yennifer Tracy; Hemoglobin A1C; Status:Active; Requested for:17Sep2022; Perform:Lab Services - Lab To Draw (Blood Test); Due:16Dec2022;Ordered ; For:Anxiety, Establishing care with new doctor, encounter for, History of OCD (obsessive compulsive disorder); Ordered By:Yennifer Tracy; Iron + TIBC, Serum; Status:Active; Requested for:17Sep2022; Perform:Lab Services - Lab To Draw (Blood Test); Due:16Dec2022;Ordered ; For:Anxiety, Establishing care with new doctor, encounter for, History of OCD (obsessive compulsive disorder); Ordered By:Yennifer Tracy; Lipid Panel; Status:Active; Requested for:17Sep2022; Perform:Lab Services - Lab To Draw (Blood Test); Due:16Dec2022;Ordered ; For:Anxiety, Establishing care with new doctor, encounter for, History of OCD (obsessive compulsive disorder); Ordered By:Yennifer Tracy; TSH WITH REFLEX TO FREE T4 IF ABNORMAL; Status:Active; Requested for:17Sep2022; Perform:Lab Services - Lab To Draw (Blood Test); Due:16Dec2022;Ordered ; For:Anxiety, Establishing care with new doctor, encounter for, History of OCD (obsessive compulsive disorder); Ordered By:Yennifer Tracy; Vitamin B12, Serum; Status:Active; Requested for:17Sep2022; Perform:Lab Services - Lab To Draw (Blood Test); Due:16Dec2022;Ordered ; For:Anxiety, Establishing care with new doctor, encounter for, History of OCD (obsessive compulsive disorder); Ordered By:Yennifer Tracy; SocHx: Non-smoker Tobacco Use Screening; Status:Complete; Done: 17Sep2022 Perform:Not Applicable;Ordered; For:SocHx: Non-smoker; Ordered By:Vicki Chu; Patient Discussion/Summary 1 MONTH MED CHECK WITH FASTING LABS Provider Impressions WE DISCUSSED MOST COMMON SIDE EFFECTS OF PRESCRIBED MEDICATIONS. INDICATIONS, RISK, COMPLICATIONS, AND ALTERNATIVES OF MEDICATION/THERAPEUTI CS WERE EXPLAINED AND DISCUSSED. PLEASE MONITOR CLOSELY FOR ANY UNTOWARD SIDE EFFECTS OR COMPLICATIONS OF MEDICATIONS. PATIENT IS STRONGLY ADVISED TO BE COMPLIANT WITH RECOMMENDATIONS. QUESTIONS AND CONCERNS WERE ADDRESSED. INSTRUCTED TO CALL, RETURN SOONER, OR GO TO THE ER, IF SYMPTOMS PERSIST OR WORSEN. THEY VOICED UNDERSTANDING AND DENIES FURTHER QUESTIONS AT THIS TIME. TIME CODE 1. PREPARATION FOR PATIENT'S VISIT (REVIEWING CHART, CURRENT MEDICAL RECORDS, OUTSIDE HEALTH PROVIDER RECORDS, PREVIOUS HISTORY, EXAM, TEST, PROCEDURE, AND MEDICATIONS) 2. FACE TO FACE ENCOUNTER OBTAINING HISTORY FROM THE PATIENT/FAMILY/CAREGI VERS; PERFORMING EVALUATION AND EXAMINATION; ORDERING TESTS OR PROCEDURES; REFERRING AND COMMUNICATING WITH OTHER HEALTHCARE PROVIDERS; COUNSELING AND EDUCATION OF THE PATIENT/FAMILY/CAREGI VERS; INDEPENDENTLY INTERPRETING RESULTS (TESTS, LABS, PROCEDURES, IMAGING) AND COMMUNICATING AND EXPLAINING RESULTS TO THE PATIENT/FAMILY/CAREGI VERS 3. COORDINATION OF CARE; PREPARING AND PRINTING DISCHARGE INSTRUCTIONS AND ANY EDUCATIONAL MATERIAL FOR THE PATIENT/FAMILY/CAREGI VERS. DOCUMENTING CLINICAL INFORMATION IN THE ELECTRONIC MEDICAL RECORD 4. REVIEWING OARRS NEEDED MDM 1) COMPLEXITY: MORE THAN 1 STABLE CHRONIC CONDITION ADDRESSED OR 1 ACUTE ILLNESS ADDRESSED 2)DATA: TESTS INTERPRETED AND OR ORDERED, TOOK INDEPENDENT HISTORY OR RECORDS REVIEWED 3)RISK: MODERATE RISK DUE TO NATURE OF MEDICAL CONDITIONS/COMORBIDIT Y OR MEDICATIONS ORDERED OR SURGICAL OR PROCEDURE REFERRAL (more content not included)... Normal [employer] Tobacco Screening.on 023 Adult depression screening assessment No [facility] Work Phone: Fall risk assessment a) No falls within the last year [facility] Work Phone: Tobacco use status [facility] b) No [facility] Work Phone: [phone] HEPATITIS B SURF ABon 2021 HEP B SURF AB <3.1 Normal <10 [facility] Comment on above: Order Comment: RUBINA COUCH CNP, [employer]PLOYEE [employer] Result Comment: INTE RPRETIVE CRITERIA: <10 mIU/mL....NONREACTIVE >=10 mIU/mL...REACTIVE . Biotin interference may cause falsely decreased results. Patients taking a Biotin dose of up to 5 mg/day should refrain from taking Biotin for 24 hours before sample collection. Providers may contact their local laboratory for further information. Performed By: #### H BAB3 #### [facility] [address] [place] [address] MUMPS IGG ANTIBODYon MUMPS IGG ANTIBODY Negative Normal [facility] Comment on above: Order Comment: RUBINA COUCH CNP, EM[employer]OYEE [employer] Result Comment: INTE RPRETATIVE COMMENT NEGATIVE: No IgG antibodies specific to Mumps detected. It is likely that the patient has not had a previous exposure to Mumps through infection or vaccination. Alternatively, the patient may have been exposed to Mumps but a failure to respond may indicate immunodeficiency. EQUIVOCAL:Equivocal results; obtain additional sample for retesting. POSITIVE: IgG antibody to Mumps detected. This may indicate that the patient was exposed to Mumps through infection or vaccination. The interpretation of serological tests should take into account the immunological status of the patient. Test results for patients, including immunocompromised patients, neonates, and pediatric patients, reflect their capacity to respond immunologically to the virus as well as their exposure to the pathogen. Patients treated with IVIG may demonstrate altered results in serological assays. Performed By: #### M UMPG #### [facility] [address] [place] [address] RUBELLA IGG ABon 01-13-2022 RUBELLA IGG AB Positive Normal [facility] Comment on above: Order Comment: RUBINA COUCH CNP, [employer]EE [employer] Result Comment: INTE RPRETATIVE COMMENT NEGATIVE: No IgG antibodies specific to Rubella detected. It is likely that the patient has not had a previous exposure to Rubella through infection or vaccination. Alternatively, the patient may have been exposed to Rubella but a failure to respond may indicate immunodeficiency. EQUIVOCAL:Equivocal results; obtain additional sample for retesting. POSITIVE: IgG antibody to Rubella detected. This may indicate that the patient was exposed to Rubella through infection or vaccination. The interpretation of serological tests should take into account the immunological status of the patient. Test results for patients, including immunocompromised patients, neonates, and pediatric patients, reflect their capacity to respond immunologically to the virus as well as their exposure to the pathogen. Patients treated with IVIG may demonstrate altered results in serological assays. Performed By: #### R UBIG #### [facility] [address] [place] [address] RUBEOLA IGG ABon 01-13-2022 RUBEOLA IGG AB Positive Normal [facility] Comment on above: Order Comment: RUBINA COUCH CNP, [employer] Result Comment: INTE RPRETATIVE COMMENT NEGATIVE: No IgG antibodies specific to Measles detected. It is likely that the patient has not had a previous exposure to Measles through infection or vaccination. Alternatively, the patient may have been exposed to Measles but a failure to respond may indicate immunodeficiency. EQUIVOCAL:Equivocal results; obtain additional sample for retesting. POSITIVE: IgG antibody to Measles detected. This may indicate that the patient was exposed to Measles through infection or vaccination. The interpretation of serological tests should take into account the immunological status of the patient. Test results for patients, including immunocompromised patients, neonates, and pediatric patients, reflect their capacity to respond immunologically to the virus as well as their exposure to the pathogen. Patients treated with IVIG may demonstrate altered results in serological assays. Performed By: #### R UBEG #### [facility] [address] [place] [address] VARICELLA ZOSTER IGG ABon VARICELLA ZOSTER IGG AB Positive Normal NEGATIVE [facility] Comment on above: Order Comment: RUBINA COUCH CNP, [employer] Result Comment: INTE RPRETATIVE COMMENT NEGATIVE: No IgG antibodies specific to VZV detected. It is likely that the patient has not had a previous exposure to VZV through infection or vaccination. Alternatively, the patient may have been exposed to VZV but a failure to respond may indicate immunodeficiency. EQUIVOCAL:Equivocal results; obtain additional sample for retesting. POSITIVE: IgG antibody to VZV detected. This may indicate that the patient was exposed to VZV through infection or vaccination. The interpretation of serological tests should take into account the immunological status of the patient. Test results for patients, including immunocompromised patients, neonates, and pediatric patients, reflect their capacity to respond immunologically to the virus as well as their exposure to the pathogen. Patients treated with IVIG may demonstrate altered results in serological assays. Performed By: #### V ARNOLD #### [facility] [address] [place] [address] CT ABDOMEN PELVIS WITH IV CO NTRAST ONLYon 09-20-2021 CT ABDOMEN PELVIS WITH IV CONTRAST ONLY EXAMINATION: CT ABDOMEN PELVIS WITH IV CONTRAST ONLY HISTORY: ORDERING SYSTEM PROVIDED HISTORY: RLQ abdominal pain (Age >= 14y), TECHNOLOGIST PROVIDED HISTORY: Illness/Other Reason for exam: C/o lower abd pain x 3 days Encounter Type: Initial Additional signs and symptoms: no ORDERING SYSTEM PROVIDED DIAGNOSIS CODES: COMPARISON: None TECHNIQUE: CT examination of the abdomen and pelvis following the administration of intravenous contrast. Coronal and sagittal reformations were performed. Dose reduction techniques were achieved by using automated exposure control and/or adjustment of mA and/or kV according to patient size and/or use of iterative reconstruction technique. CONTRAST: IOPAMIDOL 76 % INTRAVENOUS SOLUTION - 75 mL, FINDINGS: Lung bases: The lung bases are clear. Liver: Normal. Gallbladder/Biliary: Normal. No intrahepatic or extrahepatic biliary ductal dilation. Pancreas: Normal. Spleen: Normal. Adrenal glands: Normal. Kidneys/Ureters: No renal lithiasis, hydronephrosis or distal ureteral calculi. Bladder: Normal. Gastrointestinal: The bowel is not obstructed. No bowel wall thickening or surrounding inflammation. The appendix is normal. Vascular: The aorta is normal in caliber. Reproductive: IUD is in place. At the right adnexa 3.8 by 3.9 cm cystic lesion. There is moderate amount of free fluid within the pelvis. The left ovary appears normal. Lymph nodes: No lymphadenopathy. Osseous: No fracture. No aggressive osseous lesion. IMPRESSION: 1. Right adnexal 3.9 cm cyst with moderate amount of free fluid within the pelvis. Findings most consistent with ruptured ovarian cyst. Consider follow-up sonogram in 6-8 weeks. 2. Appendix is normal. Workstation ID: [id number] Dictated by: YUAN NICOLE on [place] Sep 20, 2021 11:00:56 AM EST Transcribed by: YUAN NICOLE on [place] Sep 20, 2021 11:00:56 AM EST Finalized by: YUAN NICOLE on Sun Sep 20, 2021 11:00:56 AM EST [facility] Comment on above: Order Comment: Injur y/Trauma or Illness?:Illness/Other How long have you had these symptoms (acute/chronic)?:Acute Reason for exam?:C/o lower abd pain x 3 days Type of Exam?:Initial Additional signs and symptoms?:no C Genitalon 08-13-2018 C Genital Final Report: Rare Staphylococcus aureus noted in Light growth of Normal vaginal henrik isolated ORGANISM: SA SUSCEPTIBILITY RESULTS Antibiotic MATT Dilutn MATT Interp ORGANISM: SA Amox/Cla : <=4/2 S Amp : 4 R Amp/Sul : <=8/4 S Ceftri : <=8 S Cipro : <=1 S Clinda : <=0.5 R* Eryth : >4 R Gent : <=4 S ICd : >4/0.5 Pos Levo : <=1 S Line : 2 S Ox : 0.5 S Pen : 8 R Rif : <=1 S Tetra : <=4 S SXT : <=0.5/9.5 S Vanc : >1 [facility] Comment on above: Performed By: #### 2 [id number] #### [facility] Subsection [address] [place] [address] Vital Signs Date Time Vital Sign Value Performing Clinician Dom gupta 12-02-2023 14:29-0400 Body height 157.48 cm KERRY PAYNE Work Phone: [facility] 12-02-2023 14:27-0400 Body mass index (BMI) [Ratio] 24.8 kg/m2 PA Veena PAYNE Work Phone: [facility] 12-02-2023 14:27-0400 Body weight 61.68 kg KERRY PAYNE Work Phone: [facility] 12-02-2023 14:27-0400 Diastolic blood pressure 72 mm[Hg] KERRY PAYNE Work Phone: [facility] 12-02-2023 14:27-0400 Systolic blood pressure 113 mm[Hg] PA Veena Carrillo PA Work Phone: [facility] 11-25-2023 14:53-0400 Body mass index (BMI) [Ratio] 24.4 kg/m2 PA Veena Harrison PA Work Phone: [facility] 11-25-2023 14:53-0400 Body weight 60.58 kg PA Veena Carrillo PA Work Phone: [facility] 11-25-2023 14:53-0400 Diastolic blood pressure 73 mm[Hg] PA Veena Harrison PA Work Phone: [facility] 11-25-2023 14:53-0400 Heart rate 98 /min PA Veena Carrillo PA Work Phone: [facility] 11-25-2023 14:53-0400 Respiratory rate 16 /min PA Veena Carrillo PA Work Phone: [facility] 11-25-2023 14:53-0400 Systolic blood pressure 103 mm[Hg] PA Veena Harrison PA Work Phone: [facility] 11-11-2023 13:05-0400 Body mass index (BMI) [Ratio] 24.3 kg/m2 PA Veena Harrison PA Work Phone: [facility] 11-11-2023 13:05-0400 Body weight 60.38 kg PA Veena Carrillo PA Work Phone: [facility] 11-11-2023 13:05-0400 Diastolic blood pressure 72 mm[Hg] PA Veena Harrison PA Work Phone: [facility] 11-11-2023 13:05-0400 Systolic blood pressure 106 mm[Hg] PA Veena Carrillo PA Work Phone: [facility] 11-08-2023 13:38-0400 Heart rate 99 /min PA Veena Harrison PA Work Phone: [facility] 11-08-2023 13:38-0400 SaO2% (BldA) [Mass fraction] 100 % PA Veena Harrison PA Work Phone: [facility] 11-08-2023 13:30-0400 Diastolic blood pressure 55 mm[Hg] PA Veena Carrillo PA Work Phone: [facility] 11-08-2023 13:30-0400 Systolic blood pressure 100 mm[Hg] PA Veena Harrison PA Work Phone: [facility] 11-08-2023 12:28-0400 Body height 157.48 cm PA Veena Carrillo PA Work Phone: [facility] 11-08-2023 12:28-0400 Body mass index (BMI) [Ratio] 23.8 kg/m2 PA Veena Carrillo PA Work Phone: [facility] 11-08-2023 12:28-0400 Body weight 59.19 kg PA Veena Carrillo PA Work Phone: [facility] 11-08-2023 12:08-0400 Body temperature 97.8 [degF] PA Veena Carrillo PA Work Phone: [facility] 11-08-2023 12:08-0400 Respiratory rate 16 /min PA Veena Harrison PA Work Phone: [facility] 11-02-2023 13:46-0400 Body height 157.48 cm PA Veena Harrison PA Work Phone: [facility] 11-02-2023 13:46-0400 Body mass index (BMI) [Ratio] 23.9 kg/m2 PA Veena Carrillo PA Work Phone: [facility] 11-02-2023 13:46-0400 Body weight 59.42 kg PA Veena Carrillo PA Work Phone: [facility] 11-02-2023 13:46-0400 Diastolic blood pressure 73 mm[Hg] PA Veena Carrillo PA Work Phone: [facility] 11-02-2023 13:46-0400 Systolic blood pressure 109 mm[Hg] PA Veena Harrison PA Work Phone: [facility] 10-17-2023 15:38-0500 Body height 157.48 cm PA Veena Carrillo PA Work Phone: [facility] 10-17-2023 15:38-0500 Body mass index (BMI) [Ratio] 22.9 kg/m2 PA Veena Carrillo PA Work Phone: [facility] 10-17-2023 15:38-0500 Body weight 56.92 kg PA Veena Carrillo PA Work Phone: [facility] 10-17-2023 15:38-0500 Diastolic blood pressure 76 mm[Hg] PA Veena Carrillo PA Work Phone: [facility] 10-17-2023 15:38-0500 Systolic blood pressure 112 mm[Hg] PA Veena Harrison PA Work Phone: [facility] 09-27-2023 15:32-0500 Body mass index (BMI) [Ratio] 22.4 kg/m2 PA Veena Harrison PA Work Phone: [facility] 09-27-2023 15:32-0500 Body weight 55.79 kg PA Veena Carrillo PA Work Phone: [facility] 09-27-2023 15:32-0500 Diastolic blood pressure 71 mm[Hg] PA Veena Harrison PA Work Phone: [facility] 09-27-2023 15:32-0500 Systolic blood pressure 107 mm[Hg] PA Veena Harrison PA Work Phone: [facility] 08-31-2023 15:41-0500 Body mass index (BMI) [Ratio] 22.1 kg/m2 PA Veena Carrillo PA Work Phone: [facility] 08-31-2023 15:41-0500 Body weight 54.99 kg PA Veena Harrison PA Work Phone: [facility] 08-31-2023 15:41-0500 Diastolic blood pressure 80 mm[Hg] PA Veena Carrillo PA Work Phone: [facility] 08-31-2023 15:41-0500 Systolic blood pressure 116 mm[Hg] PA Veena Carrillo PA Work Phone: [facility] 08-01-2023 15:02-0500 Body height 157.48 cm PA Veena Harrison PA Work Phone: [facility] 08-01-2023 15:01-0500 Body mass index (BMI) [Ratio] 21.4 kg/m2 PA Veena Harrison PA Work Phone: [facility] 08-01-2023 15:01-0500 Body weight 53.24 kg PA Veena Carrillo PA Work Phone: [facility] 08-01-2023 15:01-0500 Diastolic blood pressure 68 mm[Hg] PA Veena Carrillo PA Work Phone: [facility] 08-01-2023 15:01-0500 Systolic blood pressure 113 mm[Hg] PA Veena Carrillo PA Work Phone: [facility] 07-06-2023 09:45-0500 Body mass index (BMI) [Ratio] 21.2 kg/m2 PA Veena Harrison PA Work Phone: [facility] 07-06-2023 09:45-0500 Body weight 52.73 kg PA Veena Harrison PA Work Phone: [facility] 07-06-2023 09:45-0500 Diastolic blood pressure 72 mm[Hg] PA Veena Harrison PA Work Phone: [facility] 07-06-2023 09:45-0500 Systolic blood pressure 103 mm[Hg] PA Veena Carrillo PA Work Phone: [facility] 06-10-2023 13:20-0400 Body height 157.48 cm ANNE-MARIE Aguero Work Phone: [facility] 06-10-2023 13:20-0400 Body mass index (BMI) [Ratio] 20.5 kg/m2 CN Rodolfo Aguero Work Phone: [facility] 06-10-2023 13:20-0400 Body weight 51.02 kg CN Rodolfo Aguero Work Phone: [facility] 06-10-2023 13:20-0400 Diastolic blood pressure 72 mm[Hg] CN Rodolfo Aguero Work Phone: [facility] 06-10-2023 13:20-0400 Systolic blood pressure 106 mm[Hg] CN Rodolfo Aguero Work Phone: [facility] 09-17-2022 10:32-0500 Body height 157.48 cm Yennifer Tracy Work Phone: [facility] Work Phone: 09-17-2022 10:32-0500 Body mass index (BMI) [Ratio] 21.58 kg/m2 Yennifer Tracy Work Phone: [facility] Work Phone: 09-17-2022 10:32-0500 Body surface area Derived from formula 1.53 m2 Yennifer Tracy Work Phone: [facility] Work Phone: 09-17-2022 10:32-0500 Body weight 53.52 kg Yennifer Tracy Work Phone: [facility] Work Phone: 09-17-2022 10:32-0500 Diastolic blood pressure 70 mm[Hg] Yennifer Tracy Work Phone: [facility] Work Phone: 09-17-2022 10:32-0500 Heart rate 73 /min Yennifer Tracy Work Phone: [facility] Work Phone: 09-17-2022 [id number] Systolic blood pressure 103 mm[Hg] Yennifer Morris Tracy Work Phone: [facility] Work Phone: Encounters Encounter Date Encounter Type Care Provider Facility Start: 05-31-2024 ambulatory Veena PAYNE Fa [facility] Start: 04-13-2024 ambulatory Kamille Graham Facility :[facility] Start: 03-16-2024 End: 03-16-2024 ambulatory Kamille Graham [facility] Start: 02-29-2024 End: 02-29-2024 ambulatory Kamille Santos Facility[facility] Start: 01-16-2024 ambulatory Kamille Graham Facility [facility] Start: 01-16-2024 End: 01-17-2024 Evaluation and management of inpatient Kamille Graham Facility:[facility] Start: 01-11-2024 End: 01-11-2024 ambulatory Veena PAYNE [facility] Start: 01-03-2024 End: 01-03-2024 ambulatory Kamille Graham Facility[facility] Start: 12-28-2023 End: 12-28-2023 ambulatory Veena PAYNE Facility:[facility] Start: 12-23-2023 End: 12-23-2023 ambulatory Kamille Graham Facility[facility] Start: 12-23-2023 End: 12-23-2023 ambulatory Kamille Graham Facility:[facility] Start: 12-13-2023 End: 12-13-2023 ambulatory Veena PAYNE [facility] Start: 12-02-2023 End: 12-02-2023 Patient encounter procedure PA Veena PAYNE Work Phone: [facility] [place] Work Phone: Start: 12-02-2023 End: 12-02-2023 ambulatory Veena Vizcaino PA Facility:[facility] Start: 12-01-2023 Non-patient / Non-visit PA Hari Vizcaino PA Work Phone: [facility] Work Phone: Start: 12-01-2023 ambulatory Kamille Smith [employer] Facili ty:[facility] Start: 11-30-2023 Non-patient / Non-visit PA Rac hel Harrison PA Work Phone: [facility] Start: 11-30-2023 End: 11-30-2023 ambulatory PA Veena Carrillo PA Work Phone: [facility] Work Phone: Start: 11-30-2023 End: 11-30-2023 Patient encounter procedure PA Veena Harrison PA Work Phone: [facility] Work Phone: Start: 11-30-2023 End: 11-30-2023 ambulatory Veena Harrison PA Facility:[facility] Start: 11-25-2023 End: 11-25-2023 Patient encounter procedure PA Veena Carrillo PA Work Phone: [facility] Work Phone: Start: 11-25-2023 End: 11-25-2023 ambulatory Veena Carrillo PA Facility[facility] Start: 11-11-2023 End: 11-11-2023 Patient encounter procedure PA Veena Harrison PA Work Phone: [facility] [place] Work Phone: Start: 11-11-2023 End: 11-11-2023 ambulatory Veena Harrison PA Facility[place] Start: 11-10-2023 ambulatory Veena Harrison PA Fa cility[facility] Start: 11-10-2023 Non-patient / Non-visit PA Rac hel Harrison PA Work Phone: [facility] Start: 11-08-2023 End: 11-08-2023 ambulatory Veena Harrison PA Facility:[facility] Start: 11-08-2023 End: 11-08-2023 Non-patient / Non-visit PA Veena Carrillo PA Work Phone: [facility] Work Phone: Start: 11-08-2023 End: 11-08-2023 ambulatory PA Veena Harrison PA Work Phone: [facility] Work Phone: Start: 11-08-2023 End: 11-08-2023 Patient encounter procedure PA Veena Vizcaino PA Work Phone: [facility] Work Phone: Start: 11-02-2023 End: 11-02-2023 ambulatory PA Veena Villatoroall PA Work Phone: [facility] Work Phone: Start: 11-02-2023 End: 11-02-2023 Patient encounter procedure PA Veena Vizcaino PA Work Phone: [facility]Laboratory, [facility] Start: 11-02-2023 End: 11-02-2023 Patient encounter procedure PA Veena Vizcaino PA Work Phone: [facility] Work Phone: Start: 11-02-2023 End: 11-02-2023 ambulatory Veena Vizcaino PA Facility[place] Start: 11-02-2023 End: 11-02-2023 ambulatory Veenafady Villatoroall PA Facility:[facility] Start: 10-17-2023 End: 10-17-2023 ambulatory PA Veena Vizcaino PA Work Phone: [facility] Work Phone: Start: 10-17-2023 End: 10-17-2023 Patient encounter procedure PA Veena Vizcaino PA Work Phone: [facility] Work Phone: Start: 10-17-2023 End: 10-17-2023 ambulatory Rodolfo Aguero Facility:[facility] Start: 09-27-2023 End: 09-27-2023 Patient encounter procedure PA Veena Vizcaino PA Work Phone: [facility] Work Phone: Start: 09-27-2023 End: 09-27-2023 ambulatory Veena PAYNE Facility:[facility] Start: 09-01-2023 End: 09-01-2023 ambulatory SHENG Story [facility] Start: 08-31-2023 End: 08-31-2023 Patient encounter procedure KERRY PAYNE Work Phone: [facility] Work Phone: Start: 08-31-2023 End: 08-31-2023 ambulatory Rodolfoaurora Aguero Facility:[facility] Start: 08-01-2023 End: 08-01-2023 Patient encounter procedure KERRY PAYNE Work Phone: [facility] Work Phone: Start: 08-01-2023 End: 08-01-2023 ambulatory KERRY PAYNE Work Phone: [facility] Work Phone: Start: 08-01-2023 End: 08-01-2023 ambulatory Rodolfoaurora Aguero Facility:[facility] Start: 07-06-2023 End: 07-06-2023 Patient encounter procedure KERRY PAYNE Work Phone: [facility] Work Phone: Start: 07-06-2023 End: 07-06-2023 ambulatory Veena PAYNE Facility[facility] Start: 06-20-2023 End: 06-20-2023 ambulatory CNM Rodolfo Aguero Work Phone: [facility] Work Phone: Start: 06-20-2023 End: 06-20-2023 Patient encounter procedure CNYduy Aguero Work Phone: [facility] Start: 06-20-2023 End: 06-20-2023 ambulatory Rodolfoaurora Aguero Facility:[facility] Start: 06-10-2023 End: 06-10-2023 ambulatory ANNE-MARIE Aguero Work Phone: [facility] Work Phone: Start: 06-10-2023 End: 06-10-2023 Patient encounter procedure ANNE-MARIE Aguero Work Phone: [facility]Laboratory, Specimen Work Phone: Start: 06-10-2023 End: 06-10-2023 Patient encounter procedure ANNE-MARIE Aguero Work Phone: [facility] Work Phone: Start: 06-10-2023 End: 06-10-2023 ambulatory Rodolfo Aguero Facility[place] Start: 06-10-2023 End: 06-10-2023 ambulatory Rodolfo Kinsman Facility:[facility] Start: 06-03-2023 End: 06-03-2023 ambulatory [facility] Work Phone: Start: 06-03-2023 End: 06-03-2023 Patient encounter procedure [facility] Work Phone: Start: 06-03-2023 End: 06-03-2023 ambulatory Talita Abreu NP Facility:[facility] Start: 06-01-2023 End: 06-01-2023 ambulatory [facility] Work Phone: Start: 06-01-2023 End: 06-01-2023 Patient encounter procedure [facility] Start: 10-27-2022 End: 10-27-2022 ambulatory [facility] Start: 10-27-2022 End: 10-27-2022 Encounter for general adult medical examination without abnormal findings [facility] Start: 10-05-2022 Chart Update Yennifer Tracy Work Phone: [facility] Work Phone: Start: 09-17-2022 Office outpatient ne w 45 minutes Yennifer Tracy Work Phone: [facility] Work Phone: Start: 09-17-2022 ambulatory Ms. YENNIFER Villarreal acility:[id number] Start: 09-20-2021 End: 09-20-2021 Emergency department patient visit [facility] Start: 08-15-2021 Encounter for gynecological examination (general) (routine) without abnormal findings Yennifer Tracy Work Phone: [facility] Work Phone: Comment on above: WNL; Procedures Date Procedure Procedure Detail Performing Clinician Start: 11-08-2023 Urine culture PA Veena PAYNE Work Phone: Start: 06-10-2023 Urine culture CNYudy Aguero Work Phone: Start: 06-03-2023 Transvaginal obstetr ic ultrasonography Insertion of intraut erine contraceptive device Yennifer Tracy Work Phone: Tonsillectomy and adenoidectomy Yennifer Tracy Work Phone: Plan of Treatment Date Care Activity Detail Author Start: 11-08-2023 Bacteria identified in Urine by Culture [facility] Start: 11-08-2023 End: 11-08-2023 [facility] Start: 11-08-2023 Nonstress test [facility] Start: 11-08-2023 Notification of physician [facility] Start: 11-08-2023 Obstetric monitoring [facility] Start: 11-08-2023 Vital signs measurements [facility] Start: 11-08-2023 Patient discharge [facility] Start: 11-08-2023 [facility] Start: 11-02-2023 Patient referral [facility] Work Phone: Start: 10-22-2022 FUV, Provider: Yennifer Tracy, Status: Pen, Time: 1:00 PM FUV, Provider: Yennifer Tracy, Status: Pen, Time: 1:[address] [facility] Work Phone: CBC W Auto Different ial panel - Blood [facility] Hepatitis B surface antigen measurement [facility] Hepatitis C antibody measurement [facility] HIV 1+2 Ab+HIV1 p24 Ag [Presence] in Serum or Plasma by Immunoassay [facility] Patient Education ED False Labor OB Triage: Return to Hospital or Notify Physician if you Experience: [facility] Work Phone: Patient referral [facility] Work Phone: Rubella IgG measurement [facility] Treponema sp Ab [Presence] in Serum [facility] Immunizations Immunization Date Immunization Notes Care Provider Amadou lucas 06-16-2017 influenza, injectabl e, quadrivalent, preservative free Yennifer Tracy Work Phone: [facility] Work Phone: 04-05-2017 hepatitis A vaccine, pediatric/adolescent dosage, 2 dose schedule Yennifer Tracy Work Phone: [facility] Work Phone: 04-05-2017 meningococcal polysaccharide (groups A, C, Y and W-135) diphtheria toxoid conjugate vaccine (MCV4P) Yennifer Tracy Work Phone: [facility] Work Phone: 09-09-2016 influenza, injectabl e, quadrivalent, preservative free Yennifer Tracy Work Phone: [facility] Work Phone: 04-06-2013 human papilloma viru s vaccine, quadrivalent Yennifer Tracy Work Phone: [facility] Work Phone: 12-01-2012 human papilloma viru s vaccine, quadrivalent Yennifer Tracy Work Phone: [facility] Work Phone: 10-03-2012 human papilloma viru s vaccine, quadrivalent Yennifer Tracy Work Phone: [facility] Work Phone: 04-24-2012 hepatitis A vaccine, pediatric/adolescent dosage, 2 dose schedule Yennifer Tracy Work Phone: [facility] Work Phone: 04-24-2012 meningococcal polysaccharide (groups A, C, Y and W-135) diphtheria toxoid conjugate vaccine (MCV4P) Yennifer Alexandra Tracy Work Phone: [facility] Work Phone: 04-24-2012 tetanus toxoid, redu yuri diphtheria toxoid, and acellular pertussis vaccine, adsorbed Yennifer Alexandra Tracy Work Phone: [facility] Work Phone: 10-14-2003 diphtheria, tetanus toxoids and acellular pertussis vaccine, unspecified formulation Yennifer Tracy Work Phone: [facility] Work Phone: 10-14-2003 measles, mumps and rubella virus vaccine Yennifer Tracy Work Phone: [facility] Work Phone: 10-14-2003 poliovirus vaccine, unspecified formulation Yennifer Tracy Work Phone: [facility] Work Phone: 10-14-2003 varicella virus vaccine Yennifer Tracy Work Phone: [facility] Work Phone: 10-17-2001 diphtheria, tetanus toxoids and acellular pertussis vaccine, unspecified formulation Yennifer Tracy Work Phone: [facility] Work Phone: 10-17-2001 poliovirus vaccine, inactivated Yennifer Tracy Work Phone: [facility] Work Phone: 10-17-2001 varicella virus vaccine Yennifer Tracy Work Phone: [facility] Work Phone: 09-20-2000 haemophilus influenz ae type b vaccine, PRP-T conjugate Yennifer Tracy Work Phone: [facility] Work Phone: 09-20-2000 hepatitis B vaccine, pediatric or pediatric/adolescent dosage Yennifer Tracy Work Phone: [facility] Work Phone: 09-20-2000 measles, mumps and rubella virus vaccine Yennifer Tracy Work Phone: [facility] Work Phone: 09-20-2000 pneumococcal conjuga te vaccine, 7 valent Yennifer Tracy Work Phone: [facility] Work Phone: 07-13-2000 pneumococcal conjuga te vaccine, 7 valent Yennifer Tracy Work Phone: [facility] Work Phone: 04-13-2000 diphtheria, tetanus toxoids and acellular pertussis vaccine, unspecified formulation Yennifer Tracy Work Phone: [facility] Work Phone: 01-04-2000 diphtheria, tetanus toxoids and acellular pertussis vaccine, unspecified formulation Yennifer Tracy Work Phone: [facility] Work Phone: 01-04-2000 haemophilus influenz ae type b vaccine, PRP-T conjugate Yennifer Tracy Work Phone: [facility] Work Phone: 01-04-2000 hepatitis B vaccine, pediatric or pediatric/adolescent dosage Yennifer Tracy Work Phone: [facility] Work Phone: 01-04-2000 poliovirus vaccine, inactivated Yennifer Tracy Work Phone: [facility] Work Phone: 1999 diphtheria, tetanus toxoids and acellular pertussis vaccine, unspecified formulation Yennifer Tracy Work Phone: [facility] Work Phone: 1999 haemophilus influenz ae type b vaccine, PRP-T conjugate Yennifer Tracy Work Phone: [facility] Work Phone: 1999 hepatitis B vaccine, pediatric or pediatric/adolescent dosage Yennifer Tracy Work Phone: [facility] Work Phone: 1999 poliovirus vaccine, inactivated Yennifer Tracy Work Phone: [facility] Work Phone: Payers Date Payer Category Payer [employer]) [id number] 2023 Self-pay 2023 [employer] [id number] 2021 Unknown [id number] 1999 Unknown [id number] 2.840.1.716677.3.579.2.902 1999 Unknown [id number] 2.840.1.778419.3.579.2.356 1999 Unknown [id number] 2.840.1.132093.3.579.2.1244 1999 Unknown [id number] 2.840.1.839035.3.579.2.479 [employer] ( [employer] others) [id number] Unknown Unknown [id number] 2.840.1.947860.3.579.2.462 Unknown [id number] 2.840.1.297016.3.579.2.462 Unknown [id number] 2.16840.1.692808.3.579.2.462 Unknown [id number] 2.840.1.957271.3.579.2.462 Unknown [id number] 2.840.1.200318.3.579.2.462 Unknown [id number] 2.16.840.1.418309.3.579.2.462 Unknown [id number] 2.16.840.1.772419.3.579.2.462 Unknown [id number] 2.16.840.1.287027.3.579.2.462 Unknown [id number] 2.16.840.1.629786.3.579.2.462 Unknown [id number] 2.840.1.700742.3.579.2.462 Unknown [id number] 2.840.1.290279.3.579.2.462 Unknown [id number] 2.840.1.373720.3.579.2.462 Unknown [id number] 2.840.1.132713.3.579.2.462 Unknown [id number] 2.840.1.577055.3.579.2.462 Unknown [id number] 2.840.1.841817.3.579.2.462 Unknown [id number] 2.840.1.734748.3.579.2.462 Unknown [id number] 2.840.1.740256.3.579.2.462 Unknown [id number] 2.840.1.794626.3.579.2.462 Unknown [id number] 2.840.1.877862.3.579.2.462 Unknown [id number] 2.840.1.473240.3.579.2.462 Unknown [id number] 2.840.1.195383.3.579.2.462 Unknown [id number] 2.16840.1.255658.3.579.2.462 Unknown [id number] 2.16840.1.141140.3.579.2.462 Unknown [id number] 2.840.1.820346.3.579.2.462 Unknown [id number] 2.16.840.1.482270.3.579.2.462 Unknown [id number] 2.16.840.1.902429.3.579.2.462 Unknown [id number] 2.16.840.1.235503.3.579.2.462 Unknown [id number] 2.16.840.1.462716.3.579.2.462 Unknown [id number] 2.16.840.1.864458.3.579.2.462 Unknown [id number] 2.16.840.1.443901.3.579.2.462 Unknown [id number] 2.16.840.1.902045.3.579.2.462 Unknown [id number] 2.16.840.1.616895.3.579.2.462 Unknown [id number] 2.16.840.1.890813.3.579.2.462 Unknown [id number] 2.16.840.1.364443.3.579.2.462 Unknown [id number] 2.16.840.1.012515.3.579.2.462 Unknown [id number] 2.16.840.1.413822.3.579.2.462 Social History Date Type Detail Facility Non-smoker Non-smoker [facility] Work Phone: Start: 2000 Sex Assigned At Female W [facility] Start: 06-10-2023 End: 11-25-2023 Tobacco smoking status IDIS Unknown if ever smoked [facility] History of Present illness Narrative 09-17-2020 Note [...] ATTACKS. prior treatment consists of medication NONE [facility] Work Phone: Evaluation note Note Date & Type Note Facility Evaluation note No assessment information availa [facility] Work Phone: Evaluation note Note Date & Type Note Facility Evaluation note Diagnosis Onset Date acute Spotting affecting acute Supervision of low-risk [facility] Work Phone: Evaluation note Note Date & Type Note Facility Evaluation note Diagnosis Onset Date acute Supervision of low-risk acute Spotting affecting resolved acute Supervision of low-risk acute acute Supervision of low-risk [facility] Work Phone: Evaluation note Note Date & Type Note Facility Evaluation note Diagnosis Onset Date acute Supervision of low-risk acute acute Supervision of low-risk acute acute Supervision of low-risk acute acute Supervision of low-risk acute acute Supervision of low-risk [facility] Work Phone: Evaluation note Note Date & Type Note Facility Evaluation note Diagnosis Onset Date acute Supervision of low-risk acute acute Supervision of low-risk acute acute Supervision of low-risk acute acute Supervision of low-risk acute Hypotension acute acute Supervision of low-risk [facility] Work Phone: Evaluation note Note Date & Type Note Facility Evaluation note Diagnosis Onset Date acute Supervision of low-risk acute acute Supervision of low-risk acute acute Supervision of low-risk acute acute Supervision of low-risk acute Hypotension resolved acute Supervision of low-risk acute Hypotension resolved Hypotension resolved acute Supervision of low-risk [facility] Work Phone: Summary Purpose Family History No Family History Records FoundUnknown Family Member Name Dates Details No pertinent family history: Mother, Father(V49.89, Z78.9) Status:Active Family history of hypertensi on: Maternal Grandmother(V17.49, Z82.49) Status:Active Unknown Family Member Name Dates Details No pertinent family history: Mother, Father(V49.89, Z78.9) Status:Active Family history of hypertensi on: Maternal Grandmother(V17.49, Z82.49) Status:Active Relationship Condition Age at Onset Recorded Date/T delta grandmother Hypertension Unknown Malignant neoplasm of breast Unknown Advance Directives No Advanced Directives Records FoundNo Advanced Directives Records FoundNo Advanced Directives Records FoundNo Advanced Directives Records FoundNo Advanced Directives Records FoundNo Advanced Directives Records FoundNo Advanced Directives Records FoundNo Advanced Directives Records Found Chief Complaint EST NEW. C/O ANXIETY Chief Complaint and Reason for Visit Chief Complaint with incon clusive viability, not a Chief Complaint with incon clusive viability, not a NOB LMP 04/09 Reason for Visit Spotting affecting Supervision of low-risk Chief Complaint with incon clusive viability, not a NOB LMP 04/09 13 WK OB 17 WK OB Reason for Visit Supervision of low-risk Spotting affecting Supervision of low-risk Supervision of low-risk Chief Complaint 13 WK OB 17 WK OB 21 WK OB 25 WK OB 28 WK OB/GLUCOSE Reason for Visit Supervision of low-risk Supervision of low-risk Supervision of low-risk Supervision of low-risk Supervision of low-risk Chief Complaint 17 WK OB 21 WK OB 25 WK OB 28 WK OB/GLUCOSE OB, not feeling well Reason for Visit Supervision of low-risk Supervision of low-risk Supervision of low-risk Supervision of low-risk Hypotension Supervision of low-risk Chief Complaint 17 WK OB 21 WK OB 25 WK OB 28 WK OB/GLUCOSE OB, not feeling well R/O LABOR Reason for Visit Supervision of low-risk Supervision of low-risk Supervision of low-risk Supervision of low-risk Hypotension Supervision of low-risk Chief Complaint 21 WK OB 25 WK OB 28 WK OB/GLUCOSE OB, not feeling well R/O LABOR Dizziness (cardiology) R/O LABOR 30 wk DIZZINESS/HYPOTENSION ([place]ELDE) HYPOTENSION Amb Documentation 34 WK OB Reason for Visit Supervision of low-risk Supervision of low-risk Supervision of low-risk Supervision of low-risk Hypotension Supervision of low-risk Hypotension Hypotension Supervision of low-risk Additional Source Comments INFORMATION SOURCE (unrecogn ized section and content) DATE CREATED AUTHOR 03/27/2019 [facility] DATE CREATED AUTHOR AUTHOR'S ORGANIZ ATION 09/26/2021 [facility] DATE CREATED AUTHOR AUTHOR'S ORGANIZ ATION 01/13/2022 [facility] DATE CREATED AUTHOR AUTHOR'S ORGANIZ ATION 09/18/2022 [facility] DATE CREATED AUTHOR AUTHOR'S ORGANIZ ATION 10/02/2022 [facility] DATE CREATED AUTHOR AUTHOR'S ORGANIZ ATION 10/29/2022 [facility] DATE CREATED AUTHOR AUTHOR'S ORGANIZ ATION 09/03/2023 [facility] DATE CREATED AUTHOR AUTHOR'S ORGANIZ ATION 06/03/2024 [facility] Care Teams (unrecognized sec tion and content) Team Status: Inactive Member Role Status Dates Rodolfo Aguero CNM Attending Provider Active Team Status: Inactive Member Role Status Dates Talita Abreu SUPERVISING LIBRARIAN, SUPERVISING LIBRARIAN-C Attending Provider, Referring Provider Active Team Status: Active Member Role Status Dates Talita Abreu SUPERVISING LIBRARIAN, SUPERVISING LIBRARIAN-C Attending Provider, Referring Provider Active Team Status: Active Member Role Status Dates Veena Vizcaino PA, PA Primary Care Provider Active Team Status: Inactive Member Role Status Dates Veena Vizcaino PA, PA Primary Care Provider Active Rodolfo Aguero CNM Attending Provider, Referring Pr ovider Active Team Status: Inactive Member Role Status Dates Dr. Riddhi Villalobos MD Attending Provider Active Veena PAYNE, PA Primary Care Provider, Referr ing Provider Active Team Status: Inactive Member Role Status Dates Veena PAYNE, PA Primary Care Provider, Referr ing Provider Active Rodolfo Aguero CNM Attending Provider Active Team Status: Inactive Member Role Status Dates Veena Vizcaino PA, PA Primary Care Provider, Referr ing Provider Active Kamille Graham CNM Attending Provider Active Team Status: Inactive Member Role Status Dates Veena Vizcaino PA, PA Primary Care Provider, Referr ing Provider Active Talita Abreu SUPERVISING LIBRARIAN, SUPERVISING LIBRARIAN-C Attending Provider Active Team Status: Inactive Member Role Status Dates eVena PAYNE, PA Primary Care Provider Active Dr. Riddhi Villalobos MD Attending Provider, Referr ing Provider Active Rodolfo Aguero CNM Other Provider Active Team Status: Inactive Member Role Status Dates Veena Vizcaino PA, PA Primary Care Provider, Referr ing Provider Active Dr. Shelly Lyons DO Attending Provider Activ e Team Status: Inactive Member Role Status Dates Veena Harrison PA, PA Primary Care Provider Active Dr. Shelly Lyons DO Attending Provider, Refe rring Provider Active Team Status: Inactive Member Role Status Dates Veena Carrillo PA, PA Primary Care Provider Active Dr. Riddhi Villalobos MD Attending Provider, Referr ing Provider Active Team Status: Inactive Member Role Status Dates Veena Carrillo PA, PA Primary Care Provider, Referr ing Provider Active Dr. Riddhi Villalobos MD Attending Provider Active Team Status: Inactive Member Role Status Dates Veena Carrillo PA, PA Primary Care Provider, Referr ing Provider Active Dr. Bryan Toscano MD Attending Provider Active Team Status: Active Member Role Status Dates Veena Harrison PA, PA Primary Care Provider Active Dr. Riddhi Villalobos MD Attending Pr ovider, Referring Provider, Other Provider Active Team Status: Active Member Role Status Dates Veenafady EsquivelHarrison PA, PA Primary Care Provider Active Dr. Bryan Toscano MD Attending Provider Active Dr. Riddhi Villalobos MD Referring Provider Active Team Status: Active Member Role Status Dates Veena Harrison PA, PA Primary Care Provider Active Dr. Bryan Toscano MD Attending Provider Active Team Status: Active Member Role Status Dates Veena Carrillo PA, PA Primary Care Provider Active Kamille Smith SUPERVISING LIBRARIAN, SUPERVISING LIBRARIAN-C Attending Provider Active Team Status: Inactive Member Role Status Dates Veena Harrison PA, PA Primary Care Provider Active Dr. Bryan Toscano MD Attending Provider, Referring Pro vider Active Goals (unrecognized section and content) Goals may be documented in a n alternate sectionGoals may be documented in an alternate sectionGoals may be documented in an alternate sectionGoals may be documented in an alternate sectionGoals may be documented in an alternate sectionGoals may be documented in an alternate sectionGoals may be documented in an alternate sectionGoals may be documented in an alternate sectionGoals may be documented in an alternate section FOR RECORDS PERTAINING TO PATIENTS WHO ARE [...] BE BASED ON THE PRIMARY CLINICAL RECORDS. Built [facility]. provides no warranty or guarantee of the accuracy or completeness of information in this document.
== END | disposition home or self-care (01) ==
PROVIDERS: PCP Physician Assistant Medical; Referring Provider Nurse Practitioner Family; Visit Provider Nurse Practitioner Family
DX: Z13.220 Encounter for screening for lipoid disorders (principal); R53.83 Other fatigue; Z13.1 Encounter for screening for diabetes mellitus
CPT/HCPCS: 36415; 80053; 80061; 82306; 82607; 82728; 83036; 83540; 83550; 84439; 84443; 85025; 86376

== ENCOUNTER → 2025-04-11 | Outpatient (CLI) | payer OTHER, SELFPAY | END | disposition home or self-care (01) | LOC: LABSPEC 16:17 | PROVIDERS: PCP Physician Assistant Medical; Visit Provider Advanced Practice Midwife | DX: Z12.4 Encounter for screening for malignant neoplasm of cervix (principal) | CPT/HCPCS: 88175; G0145 ==

== ENCOUNTER → 2025-04-22 | Outpatient (CLI) | payer OTHER, SELFPAY ==
--- NOTE | 2025-04-22 16:05 | US_ITS ---
PROCEDURE: TRANSVAGINAL NON- 04/22/2025 REASON FOR EXAM: PELVIC PAIN IUD. TECHNIQUE: Procedure Code: USTVAG Modality: US Procedure: TRANSVAGINAL NON- COMPARISON: None FINDINGS: Measurements: Uterus: 7.6 cm x 4.6 cm x 4 cm with a volume of 71.88 mL Endometrial Thickness: 3.9 mm Right Ovary: 3.6 cm x 3.1 cm x 2 cm with a volume of 11.54 mL. Left Ovary: 3.2 cm x 2.2 cm x 1.9 cm with a volume of 6.92 mL. Uterus: Normal size, myometrial echotexture, and contour. IUD is seen within the endometrium. Endometrium: Unremarkable. Right ovary: Normal size and echotexture. Left ovary: Normal size and echotexture. Other: No large pelvic mass identified. US/Transvaginal Non- IMPRESSION: IUD seen within the endometrium. Reading Location: [facility]
== END | disposition home or self-care (01) ==
LOC: US 16:02
PROVIDERS: PCP Physician Assistant Medical; Referring Provider Advanced Practice Midwife; Visit Provider Advanced Practice Midwife
DX: N94.10 Unspecified dyspareunia (principal); R10.2 Pelvic and perineal pain
CPT/HCPCS: 76830